=== PATIENT | female | born 1955 | race Caucasian/White ===

== ENCOUNTER 2023-01-28 13:56 | Outpatient (OUT) | payer MEDICARE, SELFPAY ==
--- NOTE | 2023-01-28 14:03 | US_ITS ---
The [address] [address] Patient Name: EDIS MACARIO MRN: [id number] date: 1955 Sex: F Assigned Patient Location: US Current Patient Location: US Accession/Order Number: [id number] Exam Date: 01/28/2023 14:05 Report Date: 01/28/2023 16:57 At the request of: MAINE CHAVEZ Procedure: US thyroid EXAM: US thyroid HISTORY: Thyroid Nodule E04.1 . Follow-up study. COMPARISON: 07/17/2022 TECHNIQUE: Multiple sonographic images of the thyroid gland were obtained, supplemented with Doppler. FINDINGS: The right lobe measures 5.8 x 2.8 x 2.3 cm. Heterogeneous echoes are noted throughout. No focal nodule is identified within. The left lobe measures 5.9 x 2.7 x 2.2 cm. Heterogeneous echoes are noted throughout. In the mid lateral aspect there is a solid hypoechoic nodule present measuring 0.7 x 0.7 x 0.5 cm. No other nodule is identified in the left lobe. The isthmus measures 14 mm. Along the right side of the isthmus is a small cyst measuring 0.4 x 0.5 x 0.3 cm. There is no other evidence of a focal mass or abnormal fluid collection surrounding the gland. US/US thyroid IMPRESSION: The thyroid gland is diffusely enlarged. A small cyst is seen in the isthmus which is not significant. A small nodule in the left lobe is unchanged, and considered TI RADS 4. The overall appearance of the thyroid gland has not changed significantly. Biopsy is not recommended. Follow-up study as clinically indicated. Electronically authenticated by: KATIE GRAY Date: 01/28/2023 16:57
== END 2023-01-28 13:57 | disposition home or self-care (01) ==
LOC: US 13:56
PROVIDERS: PCP Internal Medicine; Visit Provider Otolaryngology
DX: E04.1 Nontoxic single thyroid nodule (principal)
CPT/HCPCS: 76536

== ENCOUNTER 2023-02-10 09:56 | Outpatient (OUT) | payer MEDICARE, SELFPAY ==
--- NOTE | 2023-02-10 09:59 | XR_ITS ---
[address] [address] Patient Name: EDIS MACARIO MRN: [id number] date: 1955 Sex: F Assigned Patient Location: [facility] Current Patient Location: [facility] Accession/Order Number: [id number] Exam Date: 02/10/2023 10:12 Report Date: 02/10/2023 11:18 At the request of: SONIA ZELAYA Procedure: XR DEXA axial skeleton EXAMINATION: XR DEXA axial skeleton HISTORY: Other Specified Disorder Of Bone Density M85.851 COMPARISON: DEXA bone densitometry 12/31/2020 TECHNIQUE: Dual-energy X-ray absorptiometry (DXA) was performed. FINDINGS: SPINE ANALYSIS: Average bone mineral density is 1.165 g/cm2. T-score (standard deviation relative to young adult mean): -0.1 . +9.7% change since prior study. HIP ANALYSIS: Lowest bone mineral density is within the right femoral neck, 0.815 g/cm2. T-score (standard deviation relative to young adult mean): -1.6 . +1.0% change since prior study. XR/XR DEXA axial skeleton IMPRESSION: [employer] Classification: Osteopenia - Moderate Fracture Risk Electronically authenticated by: LUCILA GUAJARDO Date: 02/10/2023 11:18
== END 2023-02-10 09:57 | disposition home or self-care (01) ==
LOC: RAD 09:56
PROVIDERS: PCP Internal Medicine; Visit Provider Internal Medicine
DX: M85.851 Other specified disorders of bone density and structure, right thigh (principal); M85.80 Other specified disorders of bone density and structure, unspecified site
CPT/HCPCS: 77080

== ENCOUNTER 2024-01-31 12:52 | Outpatient (OUT) | payer MEDICARE, SELFPAY ==
--- NOTE | 2024-01-31 12:57 | US_ITS ---
[address] [address] Patient Name: EDIS MACARIO MRN: [id number] date: 1955 Sex: F Assigned Patient Location: US Current Patient Location: Accession/Order Number: [id number] Exam Date: 01/31/2024 13:00 Report Date: 02/02/2024 04:09 At the request of: MAINE CHAVEZ Procedure: US thyroid EXAMINATION: US thyroid HISTORY: Thyroid Nodule COMPARISON: Ultrasound thyroid 01/28/2023 FINDINGS: RIGHT LOBE: Enlarged, heterogeneous, hypervascular lobe. Incidental 5 mm colloid cyst. Lobe size: 6.2 x 2.7 x 2.0 cm LEFT LOBE: Enlarged, heterogeneous, and hypervascular lobe. Slight increase in size of a 10 x 7 x 6 mm TR 4 nodule within mid body. Lobe size: 5.7 x 2.6 x 1.9 cm ISTHMUS: Thickened and heterogeneous. Thickness: 13 mm US/US thyroid IMPRESSION: 1. Enlarged, hypervascular, markedly heterogeneous thyroid gland; nonspecific. 2. Slight increase in size of a now a 10 mm TR 4 nodule within the left lobe. Follow-up ultrasound evaluation in one year is recommended. TR4 (moderately suspicious): If > 1.0 cm, follow-up ultrasound in 1, 2, 3, and 5 years. If > 1.5 cm, fine needle aspiration (FNA). Electronically authenticated by: LUCILA GUAJARDO Date: 02/02/2024 04:09
--- OUTSIDE RECORDS SUMMARY | 2024-01-31 13:14 | XMS_ITS | CCD ---
Author Organization [facility] Care Team Providers Care Manager Of Application Development Name Role Phone Meron Patel Unavailable DO Federico Robins Primary Care Provider DO Federico Robins Attending Provider Federico Robins Unavailable REQUEST, DR NONE LISTED Attending Unavaila ble REQUEST, NONE LISTED Consulting Unavaila ble BALL, DR SCOTT Primary Care Unavailable REQUEST, NONE LISTED Admitting Unavaila ble TIMMIS, MAINE Consulting Unavailable BALL, DR SCOTT Primary Care Unavailable TIMMIS, MAINE Admitting Unavailable TIMMIS, MAINE Attending Unavailable BALL, DR SCOTT Primary Care Unavailable TIMMIS, MAINE Admitting Unavailable TIMMIS, MAINE Attending Unavailable TIMMIS, MAINE Consulting Unavailable NEFCY, PETER Consulting Unavailable Self, Referral Attending Provider Unavailable DO Federico Robins Primary Care Provider Federico Robins Primary Care Unavailable Self, Referral Attending Unavailable Self, Referral Admitting Unavailable TIMMIS, MAINE H Attending Unavailable FEDERICO ROBINS Referring Unavailable KVNG HANNON Attending Unavailable Federico Robins DO Primary Care Provider DOMINGA MATHIS Referring Unavailable FEDERICO ROBINS Primary Care Unavailable DOMINGA MATHIS Referring Unavailable FEDERICO ROBINS Primary Care Unavailable MAGUI GARCIA Admitting Unavailable MAGUI GARCIA Attending Unavailable FEDERICO ROBINS Primary Care Unavailable MAGUI GARCIA Referring Unavailable FEDERICO ROBINS Primary Care Unavailable Allergies Allergy Classification Reported Allergen(s) Allergy Type Date of Onset Reaction(s) Facility (2 sources) patient allergy list reviewed by nurse or physicia Propensity to adverse reactions 5 Comment:Done CodeEval Other Medications Current Medications Medication Drug Class(es) Dates Sig (Normalized) Sig (Original) acetaminophen 325 mg / oxyCODONE hydrochloride 5 mg oral tablet (2 sources) Opioid Agonist Start: 12-22-2023 End: 12-27-2023 oxyCODONE-acetami nophen (PERCOCET) 5-325 MG per tablet Indications: Post-op pain Take 1 tablet by mouth every 6 hours as needed for Pain for up to 5 days. Intended supply: 5 days. Take lowest dose possible to manage pain Max Daily Amount: 4 tablets 20 tablet 12/22/2023 12/27/2023 Active [id number] 200 actuat albuterol 0.09 mg/actuat metered dose inhaler (10 sources) beta2-Adrenergic Agonist Start: 07-27-2021 take 2 puff(s) by inhalation four times daily as needed Albuterol Sulfate HFA 108 (90 Base) MCG/ACT 2 puffs Inhalation qid prn July, Active Start: 07-27-2021 take 2 puff(s) by in halation four times daily as needed Albuterol Sulfate HFA 108 (90 Base) MCG/ACT 2 puffs Inhalation qid prn July, Active ascorbic acid 1000 mg oral tablet (2 sources) Vitamin C take 0.5 tablet by mouth once daily Ascorbic Acid (VITAMIN C) 1000 MG tablet Take 0.5 tablets by mouth daily Active aspirin 81 mg delayed release oral tablet (2 sources) Platelet Aggregation Inhibitor, Nonsteroidal Anti-inflammatory Drug take 1 tablet by mouth once daily aspirin 81 MG EC tablet Take 1 tablet by mouth daily Active Calcium (2 sources) Phosphate Binder, Calcium take 1 tablet by mouth once daily Calcium 200 MG TABS Take 1 tablet by mouth daily 600 mg daily Active calcium chloride 0.0014 meq/ml / potassium chloride 0.004 meq/ml / sodium chloride 0.103 meq/ml / sodium lactate 0.028 meq/ml injectable solution (1 source) Start: 4 IntraVENous, at 125 mL/hr, CONTINUOUS, Starting on Wed12/22/23 at 0900, Pre-op (day of surgery) cephalexin 500 mg oral capsule (3 sources) Cephalosporin Antibacterial Start: 4 take 1 capsule by mouth four times daily cephALEXin (KEFLEX) 500 MG capsule Indications: Hematoma Take 1 capsule by mouth 4 times daily 40 capsule 12/29/2023 Active Start: 12-22-2023 End: 12-29-2023 cephALEXin (KEFLEX) 500 MG c apsule Take 1 capsule by mouth 2 times daily for 7 days Please take FIVE days of antibiotic if discharged home WITHOUT merino catheter. Please take SEVEN days of antibiotic if discharged home WITH merino catheter. 14 capsule 12/22/2023 12/29/2023 Active cholecalciferol 0.125 mg oral tablet (2 sources) Vitamin D take 1 tablet by mouth once daily vitamin D3 (CHOLECALCIFEROL) 125 MCG (5000 UT) TABS tablet Take 1 tablet by mouth daily Active clonazePAM 0.5 mg oral tablet (2 sources) Benzodiazepine clonazePAM (KLON OPIN) 0.5 MG tablet every 24 hours. Active diazePAM 5 mg oral tablet (9 sources) Benzodiazepine Start: 2022 take 1 tablet by mouth at bedtime diazePAM 5 mg TAKE 1 TABLET BY MOUTH AT BEDTIME Sep, Active 1 ml diphenhydrAMINE hydrochloride 50 mg/ml cartridge (1 source) Histamine-1 Receptor Antagonist Start: 2023 End: 2023 12.5 mg, IntraVENous, ONCE PRN, 1 dose, Starting on Wed12/22/23 at 1314, Until Xi 12/23/23 at 1314, Itching, PACU only docusate sodium 50 mg / sennosides, [facility] 8.6 mg oral tablet (3 sources) Start: 2023 End: 2023 take 2 tablets by mouth at bedtime sennosides-docusate sodium (SENOKOT-S) 8.6-50 MG tablet Take 2 tablets by mouth at bedtime 60 tablet 1 12/22/2023 Active etodolac 500 mg oral tablet (6 sources) Nonsteroidal Anti-inflammatory Drug Start: 2022 take 1 tablet by mouth twice daily at mealtime Etodolac 500 MG 1 tablet with food Orally Twice a day w/ food for 15 days Sep, Active fluticasone propionate 0.05 mg/actuat metered dose nasal spray (10 sources) Corticosteroid Start: 2021 take 2 spray(s) nasal route once daily Fluticasone Propionate 50 MCG/ACT 2 sprays Nasally Once a day for 14 day(s) July, Active ibuprofen 400 mg oral tablet (3 sources) Nonsteroidal Anti-inflammatory Drug Start: 2023 End: 2023 take 1 tablet by mouth three times daily as needed for pain ibuprofen (IBU) 400 MG tablet Take 1 tablet by mouth 3 times daily as needed for Pain 30 tablet 1 12/22/2023 Active labetalol (NORMODYNE;TRANDATE) injection 10 mg (1 source) Start: 2023 labetalol (NORMODYNE;TRANDATE) injection 10 mg Lactobacillus acidophilus (2 sources) take 1 tablet by mouth three times daily at mealtime Lactobacillus (PROBIOTIC ACIDOPHILUS PO) Take 1 tablet by mouth 3 times daily (with meals) Active levothyroxine sodium 0.05 mg oral tablet (8 sources) l-Thyroxine Start: 2022 levothyroxine (SYNTHROID) 50 MCG tablet Daily 06/16/2022 Active take 1 tablet by tejal th once daily in the morning Levothyroxine Sodium 50 MCG 1 tablet in the morning on an empty stomach Orally Once a day Active 10 ml lidocaine hydrochloride 10 mg/ml injection (1 source) Antiarrhythmic, Amide Local Anesthetic Start: 12-22-2023 End: 12-23-2023 take 1 dose intravenously once daily 1 mL, IntraDERmal, ONCE PRN, 1 dose, Starting on Wed12/22/23 at 0841, Until Xi 12/23/23 at 0841, IV start, Pre-op (day of surgery) Magnesium (2 sources) take 1 tablet by mouth once daily magnesium (MAGNESIUM-OXIDE) 250 MG TABS tablet Take 1 tablet by mouth daily Active 2 ml metoclopramide 5 mg/ml prefilled syringe (1 source) Dopamine-2 Receptor Antagonist Start: 12-22-2023 End: 12-23-2023 10 mg, IntraVENous, ONCE PRN, 1 dose, Starting on Wed12/22/23 at 1314, Until Xi 12/23/23 at 1314, Nausea, Secondary antiemetic therapy., PACU only 2 ml midazolam 1 mg/ml injection (2 sources) Benzodiazepine Start: 12-22-2023 End: 12-23-2023 2 mg, IntraVENous, ONCE PRN, 1 dose, Starting on Wed12/22/23 at 1314, Until Xi 12/23/23 at 1314, Anxiety, PACU only Multiple Vitamins-Minerals (HAIR SKIN & NAILS PO) (2 sources) Multiple Vitamins-Minerals (HAIR SKIN & NAILS PO) Take by mouth Daily Active naloxone 0.4 mg in 10 mL sodium chloride syringe (1 source) Start: 12-22-2023 IntraVENous, PRN, Opioid Reversal, Starting on Wed12/22/23 at 1314, PRN if respiratory rate is less than 6/min and patient is difficult to arouse then notify physician STAT. Mix 9 mL of sodium chloride 0.9% with 0.4 mg (1 mL) of naloxone (NARCAN) in 10 mL syringe. (Note: dilution is 0.04 mg/mL) Give 0.08 mg (2 mL of special dilution), slow IV push, repeat up to 0.4 mg (10 mL) or until patient is responsive to physical stimulation and respiratory rate is equal to or greater than 6 breaths/min. Continue to observe, if no response within 3 minutes of administration of 0.4 mg (10 mL) total, repeat dose (0.4 mg as administered previously). Concentration 0.04 mg/mL, PACU only ondansetron 4 mg oral tablet (3 sources) Serotonin-3 Receptor Antagonist Start: 12-22-2023 End: 12-27-2023 take 1 tablet by mouth every eight hours as needed for nausea ondansetron (ZOFRAN) 4 MG tablet Take 1 tablet by mouth every 8 hours as needed for Nausea or Vomiting 15 tablet 12/22/2023 12/27/2023 Active Start: 12-22-2023 End: 12-23-2023 4 mg, IntraVENous, ONCE PRN, 1 dose, Starting on Wed12/22/23 at 1314, Until Xi 12/23/23 at 1314, Nausea, Initial antiemetic therapy., PACU only oxyCODONE (1 source) Opioid Agonist Start: 12-22-2023 End: 12-22-2023 oxyCODONE (ROXICODONE) immediate release tablet 5 mg rOPINIRole 1 mg oral tablet (18 sources) Nonergot Dopamine Agonist Start: 06-23-2022 rOPINIRole (REQUIP) 1 MG tablet .COMPLEX 06/23/2022 Active rOPINIRole HCl N ot-Taking rOPINIRole HCl A ctive 72 hr scopolamine 0.0139 mg/hr transdermal system (1 source) Anticholinergic Start: 12-22-2023 1 patch, Trans DERmal, Administer over 72 Hours, ONCE, On Wed12/22/23 at 0900, For 1 dose, delivers 1 mg over 3 days. Apply patch to hairless area behind the ear. 5 ml sodium chloride 9 mg/ml injection (6 sources) Start: 12-22-2023 5-40 mL, Intra VENous, EVERY 12 HOURS SCHEDULED (2 times per day), First dose on Wed12/22/23 at 2100, Until Discontinued, For Line Patency: Peripheral IV = 5 mL; Midline or Central Line = 10 mL/lumen. If following IV push medication, administer flush at same rate as the IV push. Flush volume is determined by type of infusion therapy being given. For non-viscous solutions use: Peripheral IV = 5 mL Midline or Central Line = 10 mL/lumen For viscous solutions (i.e. blood components, parenteral nutrition, contrast media, or after obtaining blood sample) use: Peripheral IV = 10 mL Midline or Central Line = 20 mL/lumen, PACU only Start: 12-22-2023 take 1 mL intravenou sly every hour as needed IntraVENous, at 100 mL/hr, PRN, If patient receiving piggyback infusions without ordered maintenance IV fluids or with frequent/long duration piggyback infusions, Starting on Wed12/22/23 at 1314, Administer at the same rate as the piggyback being infused., PACU only Start: 12-22-2023 take 20 mL intraveno usly every hour IntraVENous, at 5-250 mL/hr, PRN, if patient receiving piggyback infusions and maintenance fluids are not ordered OR KVO fluids to protect IV site / prevent frequent line interruptions/ long duration, Starting on Wed12/22/23 at 0841, For piggyback infusion, administer at same rate as piggyback for a total of 25 mL. Enter 25 mL into dose field and piggyback rate into rate field of order. If piggyback is infusing at a rate less than 100 mL/hr, enter 25 mL into dose field and 100 mL/hr into rate field of order. For KVO fluids, enter rate of 20 mL/hr or less into rate field of order., Pre-op (day of surgery) Start: 12-22-2023 5-40 mL, Intra VENous, EVERY 12 HOURS SCHEDULED (2 times per day), First dose on Wed12/22/23 at 0900, Until Discontinued, For Line Patency: Peripheral IV = 5 mL; Midline or Central Line = 10 mL/lumen. If following IV push medication, administer flush at same rate as the IV push. Flush volume is determined by type of infusion therapy being given. For non-viscous solutions use: Peripheral IV = 5 mL Midline or Central Line = 10 mL/lumen For viscous solutions (i.e. blood components, parenteral nutrition, contrast media, or after obtaining blood sample) use: Peripheral IV = 10 mL Midline or Central Line = 20 mL/lumen, Pre-op (day of surgery) Start: 12-22-2023 5-40 mL, Intra VENous, PRN, Starting on Wed12/22/23 at 1314, Until Discontinued, Line Care, After every IV line use, For Line Patency: Peripheral IV = 5 mL; Midline or Central Line = 10 mL/lumen. If following IV push medication, administer flush at same rate as the IV push. Flush volume is determined by type of infusion therapy being given. For non-viscous solutions use: Peripheral IV = 5 mL Midline or Central Line = 10 mL/lumen For viscous solutions (i.e. blood components, parenteral nutrition, contrast media, or after obtaining blood sample) use: Peripheral IV = 10 mL Midline or Central Line = 20 mL/lumen, PACU only tamsulosin hydrochloride 0.4 mg oral capsule (1 source) alpha-Adrenergic Carolyne Start: 12-22-2023 take 1 capsule by mouth once daily tamsulosin (FLOMAX) 0.4 MG capsule Take 1 capsule by mouth daily 7 capsule 5 12/22/2023 Active tiZANidine 4 mg oral tablet (6 sources) Central alpha-2 Adrenergic Agonist Start: 09-24-2022 tiZANidine HCl 4 MG 1/2 - 1 Orally Three times a day as needed for pain for 10 days Sep, Active 24 hr venlafaxine 150 mg extended release oral capsule (20 sources) Serotonin and Norepinephrine Reuptake Inhibitor Start: 06-19-2023 venlafaxine (EFFEXOR XR) 150 MG extended release capsule Daily 06/19/2023 Active Start: 10-12-2022 take 1 capsule by [facility] every twenty-four hours Venlafaxine HCl ER 150 MG 1 capsule with food Orally Once a day Sep, Active take 1 tablet by tejal th once daily in the morning Venlafaxine HCl 75 mg TAKE 1 TABLET BY MOUTH EVERY MORNING for 30 Active Effexor Not-Taki ng Effexor Active vitamin b12 0.1 mg oral tablet (2 sources) Vitamin B12 take 1 tablet by mouth once daily cyanocobalamin 100 MCG tablet Take 1 tablet by mouth daily Active Completed/Discontinued Medications Medication Drug Class(es) Dates Sig (Normalized) Sig (Original) 2 ml fentaNYL 0.05 mg/ml injection (1 source) Opioid Agonist Start: 12-22-2023 End: 12-22-2023 take 1 dose by mouth every hour 100 mcg, IntraVENous, ONCE, 1 dose, On Wed12/22/23 at 0930, If oral and IV narcotics ordered, use oral first and only use IV if oral is ineffective or cannot take oral. Do Not give oral and IV within 1 hour of each other unless specifically ordered. gabapentin 300 mg oral capsule (1 source) Anti-epileptic Agent Start: 12-22-2023 End: 12-22-2023 take 1 dose by mouth once 300 mg, Oral, ONCE, 1 dose, On Wed12/22/23 at 0900 1 ml HYDROmorphone hydrochloride 1 mg/ml cartridge (1 source) Opioid Agonist Start: 12-22-2023 0.5 mg, IntraVENous, EVERY 5 MIN PRN, 4 doses, Starting on Wed12/22/23 at 1314, Until Discontinued, Pain Severe (7-10), Phase I - Initial therapy for severe pain., PACU only iopamidol (ISOVUE-370) 76 % injection 75 mL (1 source) Start: 12-29-2023 End: 12-29-2023 take 1 dose intravenously once 75 mL, IntraVENous, IMG ONCE PRN, 1 dose, Starting on Wed12/29/23 at 1530, Until Wed12/29/23 at 1537, Other 1 ml morphine sulfate 2 mg/ml cartridge (1 source) Opioid Agonist Start: 12-22-2023 1 mg, IntraVENous, EVERY 5 MIN PRN, 4 doses, Starting on Wed12/22/23 at 1314, Until Discontinued, Pain Moderate (4-6), Phase I - Initial therapy for moderate pain., PACU only phenazopyridine hydrochloride 100 mg oral tablet (1 source) Start: 12-22-2023 End: 12-22-2023 take 1 dose by mouth once at mealtime 100 mg, Oral, ONCE, 1 dose, On Wed12/22/23 at 0900, Take with food. May cause discoloration of urine. predniSONE 20 mg oral tablet (10 sources) Start: 07-27-2021 take 1 tablet by mouth every twelve hours predniSONE 20 MG 1 tablet Orally bid for 5 day(s) July, Not-Taking {20 (nirmatrelvir 150 MG Oral Tablet) / 10 (ritonavir 100 MG Oral Tablet) } Pack [Paxlovid 5-Day] (9 sources) Start: 05-20-2022 take 3 tablets by mouth every twelve hours Paxlovid (300/100) 20 x 150 MG & 10 x 100MG 3 tablets Orally Twice a day for 5 day(s) May, Not-Taking Start: 05-20-2022 take 3 tablets by mo uth every twelve hours Paxlovid (300/100) 20 x 150 MG & 10 x 100MG 3 tablets Orally Twice a day for 5 day(s) May, Active Problems Active Problems Problem Classification Problem Date Documented Da te Episodic/Chronic Anxiety disorders (8 sources) Generalized anxiety disorder; Translations: [Generalized anxiety disorder] Chronic Conditions associated with dizziness or vertigo (2 sources) Benign paroxysmal positional vertigo; Translations: [Benign paroxysmal vertigo, left ear] Episodic Esophageal disorders (10 sources) Eosinophilic esophagitis; Translations: [Eosinophilic esophagitis] Chronic Esophageal disorders (6 sources) Esophagitis; Translations: [Esophagitis] Episodic Esophageal disorders (4 sources) Esophageal disorders; Translations: [Gastroesophageal reflux disease with esophagitis without hemorrhage] Immunizations and screening for infectious disease (2 sources) Vaccination given; Translations: [Encounter for immunization] Episodic Miscellaneous mental health disorders (6 sources) Primary insomnia; Translations: [Primary insomnia] Chronic Mood disorders (18 sources) Recurrent major depressive episodes, mild ; Translations: [Major depressive disorder, recurrent, mild] Chronic Other bone disease and musculoskeletal deformities (1 source) Other specified disorders of bone density and structure, right thigh Episodic Other ear and sense organ disorders (8 sources) Sensorineural hearing loss, unilateral, right ear, with unrestricted hearing on the contralateral side; Translations: [Sensorineural hearing loss of right ear with normal hearing on left side (disorder)] Chronic Other ear and sense organ disorders (2 sources) Hearing loss; Translations: [Unspecified hearing loss, unspecified ear] Chronic Other ear and sense organ disorders (6 sources) Tinnitus; Translations: [Tinnitus, right ear] Episodic Other gastrointestinal disorders (2 sources) Chronic idiopathic constipation; Translations: [Chronic idiopathic constipation] Onset: 12-29-2023 Chronic Other hereditary and degenerative nervous system conditions (8 sources) Restless legs; Translations: [Restless legs syndrome] Chronic Other injuries and conditions due to external causes (2 sources) History of fall; Translations: [History of falling] Episodic Other injuries and conditions due to external causes (3 sources) Other injury of unspecified body region, initial encounter; Translations: [Other injury of unspecified body region, initial encounter] Onset: 12-29-2023 Episodic Other injuries and conditions due to external causes (1 source) Hematoma; Translations: [Other injury of unspecified body region, initial encounter] 12-29-2023 Episodic Other lower respiratory disease (6 sources) Nocturnal cough; Translations: [Nocturnal cough] Episodic Other lower respiratory disease (2 sources) Cough; Translations: [Cough] Episodic Other nervous system disorders (2 sources) Lesion of ulnar nerve; Translations: [Lesion of ulnar nerve] Onset: 10-01-2015 Chronic Other nervous system disorders (1 source) Postoperative pain ; Translations: [Other acute postprocedural pain] 12-22-2023 Episodic Other nervous system disorders (1 source) Other acute postprocedural pain; Translations: [Other acute postprocedural pain] Onset: 12-22-2023 Episodic Other nutritional; endocrine; and metabolic disorders (2 sources) Overweight; Translations: [Overweight] Episodic Other upper respiratory infections (3 sources) Acute sinusitis, unspecified; Translations: [Acute maxillary sinusitis] Onset: 07-27-2021 Resolved: 07-27-2021 Episodic Residual codes; unclassified (6 sources) Asymptomatic menopausal state; Translations: [Menopause] Episodic Residual codes; unclassified (2 sources) Postmenopausal state; Translations: [Asymptomatic menopausal state] Episodic Residual codes; unclassified (2 sources) Other specified postprocedural states; Translations: [Other specified postprocedural states] Onset: 12-29-2023 Episodic Spondylosis; intervertebral disc disorders; other back problems (2 sources) Cervical spondylosis without myelopathy; Translations: [Spondylosis without myelopathy or radiculopathy, cervical region] Onset: 05-14-2016 Chronic Thyroid disorders (20 sources) Thyroid nodule; Translations: [Nontoxic single thyroid nodule] Onset: 07-17-2022 Chronic Unclassified (1 source) Encounter for screening mammogram for malignant neoplasm of breast; Translations: [Encounter for screening mammogram for malignant neoplasm of breast] Onset: 02-15-2023 Viral infection (3 sources) COVID-19; Translations: [Disease caused by 2019-nCoV] Past or Other Problems Problem Classification Problem Date Documented Da te Episodic/Chronic Abdominal pain (4 sources) Right upper quadrant pain; Translations: [Right upper quadrant pain] Onset: 04-05-2015 Episodic Administrative/social admission (2 sources) Stress; Translations: [Other psychological or physical stress, not elsewhere classified] Onset: 10-01-2015 Episodic Chronic obstructive pulmonary disease and bronchiectasis (1 source) Bronchitis, not specified as acute or chronic Onset: 07-27-2021 Resolved: 07-27-2021 Episodic Headache; including migraine (2 sources) Headache; Translations: [Headache] Onset: 08-22-2015 Episodic Lymphadenitis (2 sources) Lymphadenopathy; Translations: [Enlargement of lymph nodes] Onset: 08-22-2015 Episodic Mycoses (2 sources) Tinea corporis; Translations: [Tinea corporis] Onset: 11-11-2012 Episodic Nausea and vomiting (2 sources) Nausea; Translations: [Nausea] Onset: 04-05-2015 Episodic Nonspecific chest pain (6 sources) Chest pain; Translations: [Other chest pain] Onset: 10-01-2015 Episodic Other connective tissue disease (2 sources) Acquired trigger finger; Translations: [Trigger thumb, left thumb] Onset: 04-25-2015 Episodic Other connective tissue disease (2 sources) Cramp in limb; Translations: [Cramp of limb] Onset: 11-11-2012 Episodic Other gastrointestinal disorders (2 sources) Flatulence, eructation and gas pain; Translations: [Abdominal distension (gaseous)] Onset: 04-05-2015 Episodic Other lower respiratory disease (2 sources) Dyspnea; Translations: [Dyspnea, unspecified] Onset: 10-01-2015 Episodic Other nervous system disorders (2 sources) Paresthesia; Translations: [Paresthesia of skin] Onset: 05-14-2016 Episodic Other non-traumatic joint disorders (2 sources) Pain in wrist; Translations: [Pain in unspecified wrist] Onset: 02-05-2014 Episodic Other non-traumatic joint disorders (2 sources) Shoulder joint pain; Translations: [Pain in joint, shoulder region] Onset: 04-25-2015 Episodic Other skin disorders (2 sources) Disorder of skin and/or subcutaneous tissue; Translations: [Disorder of the skin and subcutaneous tissue, unspecified] Onset: 08-09-2014 Episodic Residual codes; unclassified (2 sources) Requires influenza virus vaccination; Translations: [Need for prophylactic vaccination and inoculation, Influenza] Onset: 12-02-2016 Episodic Residual codes; unclassified (2 sources) C/O - a back symptom; Translations: [Other symptoms referable to back] Onset: 12-31-2016 Episodic Spondylosis; intervertebral disc disorders; other back problems (4 sources) Neck pain; Translations: [Cervicalgia] Onset: 04-25-2015 Episodic Unclassified (1 source) Acute bilateral low back pain without sciatica M54.50 Results Test Name Value Interpretation Reference Range Facility BUN (Urea N)on 12-29-2023 Urea nitrogen [Mass/Vol] 18 mg/dL Normal 8-23 [facility] Comment on above: Performed By: #### B UN, CREG #### [facility] [address] [place] [address] Meat Blender: Wilder Villa MD CT PELVIS W CONTRASTon 12-28 CT PELVIS W CONTRAST EXAMINATION: CT OF THE PELVIS WITH CONTRAST 12/29/2023 3:30 pm TECHNIQUE: CT of the pelvis was performed with the administration of intravenous contrast. Multiplanar reformatted images are provided for review. Automated exposure control, iterative reconstruction, and/or weight based adjustment of the mA/kV was utilized to reduce the radiation dose to as low as reasonably achievable. COMPARISON: None. HISTORY Postoperative hematoma. FINDINGS: Bladder is unremarkable. Hysterectomy. Subcutaneous fat stranding along the anterior pelvis with mild linear hematoma. Mild-moderate simple pelvic fluid. No significant lymphadenopathy. No acute abnormality of the visualized gastrointestinal tract. No acute osseous abnormality. IMPRESSION: Mild-moderate simple fluid in the pelvis. Subcutaneous inflammation and mild hematoma are compatible with postsurgical changes. Interpreted by: Rahel Thompson MD Signed by: Rahel Thompson MD 12/29/23 Final result Normal [facility] CT Pelvis W contrast Carlos Mild-moderate simple fluid in the pelvis. Subcutaneous inflammation and mild hematoma are compatible with postsurgical changes. [facility] EXAMINATION: CT OF THE PELVIS WITH CONTRAST 12/29/2023 3:30 pm TECHNIQUE: CT of the pelvis was performed with the administration of intravenous contrast. Multiplanar reformatted images are provided for review. Automated exposure control, iterative reconstruction, and/or weight based adjustment of the mA/kV was utilized to reduce the radiation dose to as low as reasonably achievable. COMPARISON: None. HISTORY Postoperative hematoma. FINDINGS: Bladder is unremarkable. Hysterectomy. Subcutaneous fat stranding along the anterior pelvis with mild linear hematoma. Mild-moderate simple pelvic fluid. No significant lymphadenopathy. No acute abnormality of the visualized gastrointestinal tract. No acute osseous abnormality. [facility] Rahel Thompson MD - 12/29/2023 EXAMINATION: CT OF THE PELVIS WITH CONTRAST 12/29/2023 3:30 pm TECHNIQUE: CT of the pelvis was performed with the administration of intravenous contrast. Multiplanar reformatted images are provided for review. Automated exposure control, iterative reconstruction, and/or weight based adjustment of the mA/kV was utilized to reduce the radiation dose to as low as reasonably achievable. COMPARISON: None. HISTORY Postoperative hematoma. FINDINGS: Bladder is unremarkable. Hysterectomy. Subcutaneous fat stranding along the anterior pelvis with mild linear hematoma. Mild-moderate simple pelvic fluid. No significant lymphadenopathy. No acute abnormality of the visualized gastrointestinal tract. No acute osseous abnormality. IMPRESSION: Mild-moderate simple fluid in the pelvis. Subcutaneous inflammation and mild hematoma are compatible with postsurgical changes. [facility] Radiology Study observation (narrative) [facility] CT Pelvis W contrast IVOrder ed By: Rahel Thompson on 12-29-2023 [facility] Work Phone: Creatinine w/GFRon 4 Creatinine [Mass/Vol] 1.3 mg/dL High 0.50-0.90 [facility] Comment on above: Performed By: #### B FEDERICA, CREG #### [facility] [address] [place] [address] Meat Blender: Wilder Villa MD GFR/1.73 sq M.predicted among non-blacks MDRD (S/P/Bld) [Vol rate/Area] 44 mL/min/{1.73_m2} Low >60 [facility] Comment on above: Result Comment: These results are not intended for use in patients <18 years of age. eGFR results are calculated without a race factor using the 2020 CKD-EPI equation. Careful clinical correlation is recommended, particularly when comparing to results calculated using previous equations. The CKD-EPI equation is less accurate in patients with extremes of muscle mass, extra-renal metabolism of creatine, excessive creatine ingestion, or following therapy that affects renal tubular secretion. Performed By: #### B FEDERICA, CREG #### [facility] [address] [place] [address] Meat Blender: Wilder Villa MD Hemoglobin and Hematocriton 12-22-2023 Hematocrit (Bld) [Volume fraction] 40.0 % 36 - 46 % [facility] Hemoglobin (Bld) [Mass/Vol] 13.1 g/dL 12.0 - 16.0 g/dL [facility] Hgb/Hcton 12-22-2023 Hematocrit (Bld) [Volume fraction] 40.0 % Normal 36-46 [facility] Comment on above: Performed By: #### H H #### [facility] [id number] [place] [id number] Meat Blender: Luis Carlos Bright MD Hemoglobin (Bld) [Mass/Vol] 13.1 g/dL Normal 12.0-16.[address] [facility] Comment on above: Performed By: #### H H #### [facility] [address] [place] [address] Meat Blender: Luis Carlos Bright MD MM screening mammo BI w/CADo n 02-16-2023 MM screening mammo BI w/CAD [facility] [place] [address] [place] [id number] Mammography Report Signed Patient: Anna Jolley MR#: [id number] : 1955 Acct:[id number] Age/Sex: 67 / F ADM Date: 02/15/23 Loc: [place] Room: Type: [facility] CLI Attending Dr: Referral Self Copies to: Federico Robins DO SELF,REFERRAL Ordering Provider: SELF,REFERRAL Date of Service: 02/15/23 MM/MM screening mammo BI w/CAD: SCREENING CLINICAL DATA: Screening for malignancy. BILATERAL SCREENING MAMMOGRAMS - FULL FIELD DIGITAL WITH TOMOSYNTHESIS AND CAD Tomosynthesis craniocaudal and mediolateral oblique views of both breasts were obtained using low- dose digital technique. Comparison is made to prior studies from 01/30/2022, 01/10/2021, 11/17/2019, and 03/04/2020. This examination was reviewed with the aid of CAD. The breast parenchyma is heterogeneously dense. There is a biopsy clip on the left which is unchanged. Benign-appearing calcifications redemonstrated on the left. Benign-appearing lymph nodes noted along the chest wall. There are no dominant masses, typically malignant calcifications or architectural distortion. There has been no significant interval change. MM/MM screening mammo BI w/CAD IMPRESSION: NO MAMMOGRAPHIC EVIDENCE OF MALIGNANCY. ROUTINE FOLLOW-UP IS RECOMMENDED IN ONE YEAR. RESULT CODE: 2 Benign Findings(s) DENSITY CODE: 3 (approximately 51-75% glandular) FOLLOW UP: 1YR The false-negative rate of mammography is approximately 10-percent. Management of a palpable abnormality must be based on clinical grounds. Patient was entered into a reminder system with a target due date for the next mammogram. Impression dictated by: Yunior Yee M.D.02/16/2023 1:51 PM Dictation Location: [facility] Transcribed By: SUMIT 02/16/23 1351 Dictated By: Yunior Yee II, MD 02/16/23 1342 Signed By: 02/16/23 1351 Normal [facility] US THYROIDon 07-18-2022 US THYROID STUDY: US THYROID, [id number] HISTORY: Non-toxic uninodular goiter TECHNIQUE: Multiple 2 dimensional grayscale and color doppler images through the thyroid. COMPARISONS: Thyroid ultrasound 01/28/2022 and 12/13/2019. FINDINGS: The thyroid is heterogeneous in echotexture and demonstrates diffusely increased color Doppler flow, similar. The right lobe measures 5.8 x 2.8 x 2.2 cm for a volume of 16.6 cc. The left lobe measures 5.6 x 2.3 x 1.9 cm for a volume of 11.9 cc. The isthmus measures 1.2 cm. Nodule 1 Size: 0.7 x 0.6 x 0.4 cm, previously 0.5 x 0.5 x 0.4 Location: Left mid thyroid Composition: Solid or almost completely solid-2 Echogenicity: Hypoechoic-2 Shape: Wider than tall-0 Margin: Smooth-0 Echogenic foci: None or large comet tail artifacts-0 TI-RADS: 4 No other significant nodules. IMPRESSION: 1. Stable thyromegaly. 2. Single TI-RADS 4 nodule in the left thyroid measuring up to 7 mm, not significant change compared with 01/28/2022. Given size less than 1 cm, no additional follow-up or evaluation is required based on TI-RADS criteria. Electronically authenticated by: DIANDRA AVALOS Date: 2022-07-18 11:31 Normal [facility] CBC AUTO DIFFon 02-13-2022 BASO # 0.1 103/ul Normal 0.0-0.1 [facility] Comment on above: Performed By: #### D ATCBC #### [facility] [address] [address] [address] Rosie Dodson Basophils/100 WBC (Bld) 0.7 % Normal 0.2-2.0 [facility] Comment on above: Performed By: #### D ATCBC #### [facility] [address] [place], [place] [address] Dr. Rosie Dodson EO # 0.5 103/ul Normal 0.0-0.7 [facility] Comment on above: Performed By: #### D ATCBC #### [facility] [address] [place] [address] Dr. Rosie Dodson Eosinophils/100 WBC (Bld) 7.5 % Critically high 0.9-7.0 [facility] Comment on above: Performed By: #### D ATCBC #### [facility] [address] [place] [address] Dr. Rosie Dodson Erythrocyte distribution width (RBC) [Ratio] 12.4 % Normal 11.0-15.0 [facility] Comment on above: Performed By: #### D ATCBC #### [facility] [address] [place] [address] Dr. Rosie Dodson Hematocrit (Bld) [Volume fraction] 44.4 % Normal 36.0-48.0 [facility] Comment on above: Performed By: #### D ATCBC #### [facility] [address] [place] [address] Dr. Rosie Dodson Hemoglobin (Bld) [Mass/Vol] 14.4 g/dL Normal 12.0-16.0 [facility] Comment on above: Performed By: #### D ATCBC #### [facility] [address] [place] [address] Dr. Rosie Dodson IG # 0.01 10e3/ul Normal 0.00-0.03 [facility] Comment on above: Performed By: #### D ATCBC #### [facility] [address] [place] [address] Dr. Rosie Dodson IG % 0.1 % Normal 0.0-0.5 [facility] Comment on above: Performed By: #### D ATCBC #### [facility] [address] [place] [address] Dr. Rosie Dodson LYMPH # 2.1 103/ul Normal 1.2-3.8 [facility] Comment on above: Performed By: #### D ATCBC #### [facility] [address] [place] [address] Dr. Rosie Dodson Lymphocytes/100 WBC (Bld) 29.4 % Normal 20.5-60.0 [facility] Comment on above: Performed By: #### D ATCBC #### [facility] [address] [address] [address] Rosie Dodson MCH (RBC) [Entitic mass] 29.0 pg Normal 26.7-34.0 [facility] Comment on above: Performed By: #### D ATCBC #### [facility] [address] [place] [address] Dr. Rosie Dodson MCHC (RBC) [Mass/Vol] 32.4 g/dL Normal 29.9-35.2 [facility] Comment on above: Performed By: #### D ATCBC #### [facility] [address] [place] [address] Dr. Rosie Dodson MCV (RBC) [Entitic vol] 89.5 fL Normal 81.0-99.0 [facility] Comment on above: Performed By: #### D ATCBC #### [facility] [address] [place] [address] Dr. Rosie Dodson MONO # 0.7 103/ul Normal 0.3-0.8 [facility] Comment on above: Performed By: #### D ATCBC #### [facility] [address] [place] [address] Dr. Rosie Dodson Monocytes/100 WBC (Bld) 9.8 % Normal 1.7-12.0 [facility] Comment on above: Performed By: #### D ATCBC #### [facility] [address] [place] [address] Dr. Rosie Dodson NEUT # 3.7 103/ul Normal 1.4-6.5 [facility] Comment on above: Performed By: #### D ATCBC #### [facility] [address] [place] [address] Dr. Rosie Dodson Neutrophils/100 WBC (Bld) 52.5 % Normal 43.0-75.0 [facility] Comment on above: Performed By: #### D ATCBC #### [facility] [address] [place] [address] Dr. Rosie Dodson Platelet mean volume (Bld) [Entitic vol] 9.6 fL Normal 9.5-13.5 [facility] Comment on above: Performed By: #### D ATCBC #### [facility] [address] [place] [address] Dr. Rosie Dodson PLT 339 103/ul Normal 150-450 [facility] Comment on above: Performed By: #### D ATCBC #### [facility] [address] [place] [address] Dr. Rosie Dodson RBC 4.96 106/ul Normal 4.20-5.40 [facility] Comment on above: Performed By: #### D ATCBC #### [facility] [address] [place] [address] Dr. Rosie Dodson WBC 7.1 103/ul Normal 4.0-11.0 [facility] Comment on above: Performed By: #### D ATCBC #### [facility] [address] [place] [address] Dr. Rosie Dodson ARLETH - TSHon 02-13-2022 TSH 1.943 uIU/mL Normal 0.358-3.740 [facility] Comment on above: Performed By: #### D ATTSH DATBMP #### [facility] [address] [place] [address] Dr. Rosie Dodson TSH RANGE SEE BELOW Normal [facility] Comment on above: Result Comment: <0.3 4 UIU/ml HYPERTHYROID 0.34-5.60 UIU/ml EUTHYROID >5.60 UIU/ml HYPOTHYROID Performed By: #### D ATTSH, DATBMP #### [facility] [address] [place] [address] Dr. Rosie Dodson ARLETH- BMP WITH LIPIDon 2021 Anion gap [Moles/Vol] 12.9 mmol/L Normal [facility] Comment on above: Performed By: #### D ATTSH, DATBMP #### [facility] [address] [place] [address] Dr. Rosie Dodson Calcium [Mass/Vol] 9.2 mg/dL Normal 8.5-10.1 [facility] Comment on above: Performed By: #### D ATTSH, DATBMP #### [facility] [address] [address] [address] Rosie Dodson Chloride [Moles/Vol] 102 mmol/L Normal 98-107 [facility] Comment on above: Performed By: #### D ATTSH, DATBMP #### [facility] [address] [address] [address] Rosie Dodson Cholesterol [Mass/Vol] 228 mg/dL Critically high <=200 [facility] Comment on above: Performed By: #### D ATTSH, DATBMP #### [facility] [address] [address] [address] Rosie Dodson Cholesterol in HDL [Mass/Vol] 54 mg/dL Normal 40-60 [facility] Comment on above: Performed By: #### D ATTSH, DATBMP #### [facility] [address] [address] [address] Rosie Dodson Cholesterol in LDL [Mass/Vol] 151.0 mg/dL Normal [facility] Comment on above: Performed By: #### D ATTSH, DATBMP #### [facility] [address] [address] [address] Rosie Dodson CO2 [Moles/Vol] 28.3 mmol/L Normal 21.0-32.0 [facility] Comment on above: Performed By: #### D ATTSH, DATBMP #### [facility] [address] [address] [address] Rosie Dodson Creatinine [Mass/Vol] 0.92 mg/dL Normal 0.55-1.02 [facility] Comment on above: Performed By: #### D ATTSH, DATBMP #### [facility] [address] [address] [address] Rosie Dodson EGFR-AF ECUADOREAN >60 Normal >=60 [facility] Comment on above: Performed By: #### D ATTSH, DATBMP #### [facility] [address] [address] [address] Rosie Dodson EGFR-NON AF ECUADOREAN >60 Normal >=60 [facility] Comment on above: Performed By: #### D ATTKRISTAL, DATBMP #### [facility] [address] [address] [address] Rosie Dodson Glucose [Mass/Vol] 100 mg/dL Normal 74-106 [facility] Comment on above: Performed By: #### D ATTKRISTAL, DATBMP #### [facility] [address] [address] [address] Rosie Dodson HDL NORMAL > or = 60 mg/dl - LO W CARDIOVASCULAR RISK <40 mg/dl - HIGH CARDIOVASCULAR RISK Normal [facility] Comment on above: Performed By: #### D ATTKRISTAL, DATBMP #### [facility] [address] [address] [address] Rosie Dodson LDL CALC NORMAL SEE BELOW Normal [facility] Comment on above: Result Comment: <100 mg/dl OPTIMAL 100 - 129 mg/dl NEAR OR ABOVE OPTIMAL 130 - 159 mg/dl BORDERLINE HIGH 160 - 189 mg/dl HIGH >190 mg/dl VERY HIGH Performed By: #### D SHAISTA, DATBMP #### [facility] [address] [address] [address] Rosie Dodson Potassium [Moles/Vol] 4.2 mmol/L Normal 3.5-5.1 [facility] Comment on above: Performed By: #### D SHAISTA, DATBMP #### [facility] [address] [address] [address] Rosie Dodson Sodium [Moles/Vol] 139 mmol/L Normal 136-145 [facility] Comment on above: Performed By: #### D ATTKRISTAL, DATBMP #### [facility] [address] [address] [address] Rosie Dodson Triglyceride [Mass/Vol] 115 mg/dL Normal <=150 [facility] Comment on above: Performed By: #### D ATTKRISTAL, DATBMP #### [facility] [address] [address] [address] Rosie Dodson Urea nitrogen [Mass/Vol] 19.0 mg/dL Critically high 7.0-18.0 [facility] Comment on above: Performed By: #### D SHAISTA, DATBMP #### [facility] [address] [place], [place] [address] Dr. Rosie Dodson Urea nitrogen/Creatini ne [Mass ratio] 20.7 mg/mg Normal [facility] Comment on above: Performed By: #### D ATTSH, DATBMP #### [facility] [address] [place], [place] [address] Dr. Rosie Dodson VLDL CALC 23.0 mg/dL Normal [facility] Comment on above: Performed By: #### D ATTSH, DATBMP #### [facility] [address] [place], [place] [address] Dr. Rosie Dodson US THYROIDon 01-28-2022 US THYROID EXAM: US THYROID HISTORY: Non-toxic uninodular goiter . Follow-up study. COMPARISON: 02/04/2021 TECHNIQUE: Multiple sonographic images of the thyroid gland were obtained, supplemented with Doppler. FINDINGS: The right lobe measures 6.5 x 2.4 x 2.0 cm. Heterogeneous echoes are noted throughout. No apparent nodule is present. The left lobe measures 5.7 x 2.2 x 2.0 cm. Heterogeneous echoes are noted throughout. In the mid aspect there is a small solid nodular structure measuring 0.5 x 0.4 x 0.5 mm. No other nodule is identified. The isthmus measures 9 mm in thickness. A small cyst is seen associated with the isthmus eccentric to the right measuring 0.4 x 0.3 x 0.3 cm. There is no evidence of a focal mass or abnormal fluid collection surrounding the gland. IMPRESSION: The thyroid gland is enlarged. The small cyst in the isthmus is not significant. A small nodular structure is seen in the mid aspect of the left lobe, which was not apparent in the prior study. This is a TI RADS 4 lesion. Biopsy is not recommended at this time. A follow study in 12 months is recommended. Except for visualization of a small nodule in the left lobe, the overall appearance is unchanged. Electronically authenticated by: KATIE GRAY Date: 2022-01-28 17:10 Normal [facility] Vital Signs Date Time Vital Sign Value Performing Clinician Facility 12-22-2023 14:05-0400 Heart rate 87 /min Maguireal Garcia DO Work Phone: [facility] 12-22-2023 14:05-0400 Respiratory rate 17 /min Magui Garcia DO Work Phone: [facility] 12-22-2023 14:05-0400 SaO2% (BldA) [Mass fraction] 95 % Magui Garcia DO Work Phone: [facility] 12-22-2023 14:00-0400 Diastolic blood pressure 62 mm[Hg] Magui Garcia DO Work Phone: [facility] 12-22-2023 14:00-0400 Systolic blood pressure 126 mm[Hg] Magui Garcia DO Work Phone: [facility] 12-22-2023 11:47-0400 Body temperature 97.2 [degF] Magui Garcia DO Work Phone: [facility] 12-22-2023 08:58-0400 Body height 172.7 cm Magui Garcia DO Work Phone: [facility] 12-22-2023 08:58-0400 Body mass index (BMI) [Ratio] 25.67 kg/m2 Magui Garcia DO Work Phone: [facility] 12-22-2023 08:58-0400 Body weight 76.57 kg Magui Garcia DO Work Phone: [facility] 09-24-2022 11:15-0400 Body height 172.72 cm Federico Ball Other [employer] Other 09-24-2022 11:15-0400 Body mass index (BMI) [Ratio] 25.31 kg/m2 Federico Ball Other [employer] Other 09-24-2022 11:15-0400 Body weight 75.52 kg Federico Ball Other [employer] Other 09-24-2022 11:15-0400 Diastolic blood pressure 79 mm[Hg] Federico Robins Other [employer] Other 09-24-2022 11:15-0400 Respiratory rate 12 /min Federico Ball Other [employer] Other 09-24-2022 11:15-0400 Systolic blood pressure 119 mm[Hg] Federico Robins Other [employer] Other 07-27-2021 12:40-0400 Body height 172.72 cm Meron Patel Other [employer] Other 07-27-2021 12:40-0400 Body mass index (BMI) [Ratio] 24.93 kg/m2 Meron Patel Other [employer] Other 07-27-2021 12:40-0400 Body temperature 97.4 [degF] Meron Patel Other [employer] Other 07-27-2021 12:40-0400 Body weight 74.39 kg Meron Patel Other [employer] Other 07-27-2021 12:40-0400 SaO2% (BldA) [Mass fraction] 95 % Meron Patel Other [employer] Other Encounters Encounter Date Encounter Type Care Provider Facility Start: 12-29-2023 End: 12-31-2023 [facility]ulatory [facility] Start: 12-29-2023 End: 12-31-2023 Subsequent hospital visit by physician [facility] Cat Scan Room [facility] CT Scan Comment on above: Hematoma Start: 12-22-2023 End: 12-22-2023 ambulatory MAGUI GARCIA [facility] Start: 12-22-2023 End: 12-22-2023 Subsequent hospital visit by physician Magui Garcia DO Work Phone: [facility] [place] Comment on above: Post-op pain (Primar y Dx) Start: 12-06-2023 End: 12-10-2023 ambulatory MAGUI GARCIA [facility] Start: 10-20-2023 End: 10-20-2023 ambulatory MAINE CHAVEZ Not Available Start: 09-01-2023 End: 09-01-2023 ambulatory KVNG HANNON Not Available Start: 02-15-2023 End: 02-15-2023 ambulatory Federico Robins Facility:[facility] Start: 02-15-2023 End: 02-15-2023 ambulatory DO Federico Ball Work Phone: [facility] Work Phone: Start: 02-15-2023 End: 02-15-2023 Patient encounter procedure DO Federico Ball Work Phone: [facility] Work Phone: Start: 02-11-2023 End: 02-11-2023 ambulatory Federico Robins Other [employer] Other Start: 02-11-2023 Telephone encounter Federico Shimon [facility] Start: 02-10-2023 Telephone encounter Federico Robins [facility] Start: 02-10-2023 End: 02-10-2023 ambulatory MAINE CHAVEZ [facility] Other Start: 12-21-2022 End: 12-21-2022 ambulatory Federico Ball Other [employer] Other Start: 12-21-2022 Telephone encounter Federico Ball [facility] Start: 10-12-2022 End: 10-12-2022 ambulatory Federico Ball Other [employer] Other Start: 10-12-2022 Telephone encounter Federico Ball FP [facility] Start: 09-28-2022 End: 09-28-2022 ambulatory Federico Robins Other [employer] Other Start: 09-28-2022 Telephone encounter Federico SHUKLA [facility] Start: 09-24-2022 End: 09-24-2022 ambulatory Federico Robins Other [employer] Other Start: 09-24-2022 Office outpatient vi sit 15 minutes Federico Robins [facility] Start: 09-23-2022 End: 09-23-2022 ambulatory Federico Robins Other [employer] Other Start: 09-23-2022 Telephone encounter Federico Robins FP [facility] Start: 07-18-2022 End: 07-18-2022 ambulatory Meron Patel Other [employer] Other Start: 07-18-2022 Telephone encounter Meron Patel [facility] Start: 07-17-2022 End: 07-18-2022 ambulatory MAINE CHAVEZ Facility:[facility] Start: 05-20-2022 ([facility]) [facility] Scheduled Federico Robins [facility] Start: 05-20-2022 End: 05-20-2022 ambulatory Federico Robins Other [employer] Other Start: 02-13-2022 End: 02-14-[address] HOLT LISTED REQUEST Facility:[facility] Start: 02-03-2022 Adult health examination Federico Robins Other [employer] Other Start: 01-28-2022 End: 01-29-[address] FEDERICO ROBINS Facility:[facility] Start: 01-20-2022 End: 01-20-2022 ambulatory DO Federico Robins Work Phone: [facility] Work Phone: Start: 01-20-2022 End: 01-20-2022 Patient encounter procedure DO Federico Robins [employer] Phone: [facility] Start: 07-27-2021 End: 07-27-2021 ambulatory Meron Patel Other [facility] [employer] Other Start: 07-27-2021 Office outpatient ne w 20 minutes Meron Patel [facility] Procedures Date Procedure Procedure Detail Performing Clinician Start: 12-29-2023 Ct pelvis w/contrast material Dominga Mathis [employer] Work Phone: Start: 12-22-2023 H/O: surgery S/P robotic sacrocolpopexy with restorelle mesh, cystoscopy, lynx sling 12/22/23 Magui Montoya Cornell DO Work Phone: Start: 12-22-2023 Blood count hemoglobin Ana Cristina Martinez MD Work Phone: Start: 01-20-2022 Screening mammography of bilateral breasts DO Federico Robins Work Phone: Start: 08-03-2018 Screening for malignant neoplasm of colon Federico Robins Other Start: 11-11-2012 General examination of patient Federico Robins Other Depression screening Poncho Robins Other Screening for malign ant neoplasm of breast Federico Robins Other Plan of Treatment Date Care Activity Detail Author Start: 12-02-2026 DTaP/Tdap/Td vaccine (5 - Tdap) DTaP/Tdap/Td vaccine (5 - Tdap) [facility] Start: 12-28-2024 GFR test (Diabetes, CKD 3-4, OR last GFR 15-59) GFR test (Diabetes, CKD 3-4, OR last GFR 15-59) [facility] Start: 01-28-2024 End: 01-28-2024 Patient encounter procedure 01/28/2024 10:45 AM EST Office Visit [facility] Uro[facility]necology and Pel[facility] Rehabilitation [address] [place] [address] Magui Garcia, DO [address] [facility] [address] [place] [address] 6 WK PO [facility] Comment on above: 6 WK PO Start: 01-04-2024 End: 01-04-2024 Patient encounter procedure 01/04/2024 2:00 PM EDT Office Visit [facility] [address] [facility] [address] [place] [address] Kim Perea, PT [address] [facility] [address] [place] [address] [facility] Start: 12-29-2023 End: 12-29-2023 Patient encounter procedure 12/29/2023 9:15 AM EDT Office Visit [facility] [address] [facility] [address] [place] [address] Dominga Mathis, MANAGER HEALTH - [employer]KE ADJUSTER [address] [facility] [address] [place] [address] 1 WK PO [facility] Comment on above: 1 WK PO Start: 12-22-2023 End: 12-22-2023 Laparoscopy colpopexy suspension vaginal apex SACRAL COLPOPEXY ROBOTIC Cystocele with rectocele Vaginal vault prolapse Urinary frequency 12/22/2023 9:52 AM EDT [facility] Start: 12-16-2023 Annual Wellness Visi t (Medicare) Annual Wellness Visit (Medicare) [facility] Start: 11-14-2023 COVID-19 Vaccine ( season) COVID-19 Vaccine () [facility] Start: 10-14-2023 Influenza vaccination Flu vaccine (# 1) [facility] Start: 02-15-2023 MG Breast - bilatera l Screening [facility] Start: 02-15-2023 Screening mammograph y of bilateral breasts MM screening mammo BI w/CAD [facility] Start: 03-04-2020 Screening for malignant neoplasm of breast Breast cancer screen [facility] Start: 2015 Respiratory Syncytia l Virus (RSV) or age 60 yrs+ (1 - 1-dose 60+ series) Respiratory Syncytial Virus (RSV) or age 60 yrs+ (1 - 1-dose 60+ series) [facility] Start: 10-20-2010 Screening for osteoporosis DEXA (modify frequency per FRAX score) [facility] Start: 10-20-2005 Shingles vaccine (1 of 2) Shingles vaccine (1 of 2) [facility] Start: 10-20-2000 Screening for malignant neoplasm of colon [facility] Start: 1995 Lipid panel [facility] Start: 10-20-1990 Diabetes screen Diabetes screen [facility] Start: 10-20-1973 Hepatitis C screening Hepatitis C sc reen [facility] Start: 1967 Depression Screen Depression Screen [facility] End: 12-22-2023 INITIATE PACU OXYGEN THERAPY PROTOCOL Initiate PACU Oxygen Therapy Protocol Respiratory Care Routine Continuous until discontinued starting 12/22/2023 [place] Phone: Comment on above: Continuous until dis continued starting 12/22/2023 Oxygen therapy [Minimum Data Set] Initiate Oxygen Therapy Protocol Respiratory Care Routine As Needed until discontinued starting 12/22/2023 [place] Phone: Comment on above: As Needed until disc ontinued starting 12/22/2023 End: 12-22-2023 , urine POCT , urine POCT Point of Care Testing Routine One Time for 1 Occurrences starting 12/22/2023 until 12/22/2023 [facility] Comment on above: One Time for 1 Occur rences starting 12/22/2023 until 12/22/2023 Immunizations Immunization Date Immunization Notes Care Provider Teddy bruno 02-03-2023 influenza, high dose seasonal, preservative-free Federico Robins Other [facility] Other 02-03-2022 influenza virus vaccine, split virus (incl. purified surface antigen) Federico Robins Other [facility] Other 02-03-2022 Prevnar 20 Federico Robins Other [facility] Other 12-02-2016 tetanus and diphther ia toxoids, adsorbed, preservative free, for adult use (5 Lf of tetanus toxoid and 2 Lf of diphtheria toxoid) Federico Robins Other [facility] Other 12-31-2014 tetanus and diphther ia toxoids, adsorbed, preservative free, for adult use (5 Lf of tetanus toxoid and 2 Lf of diphtheria toxoid) Federico Robins Other [facility] Other 10-14-2011 tetanus and diphther ia toxoids, adsorbed, preservative free, for adult use (5 Lf of tetanus toxoid and 2 Lf of diphtheria toxoid) Federico Robins Other [facility] Other 10-13-2010 diphtheria, tetanus toxoids and acellular pertussis vaccine, unspecified formulation Federico Robins Other [employer] Other pneumococcal Conjuga te, unspecified formulation; Translations: [Need for prophylactic vaccination against Streptococcus pneumoniae (pneumococcus)] Federico Robins Other [employer] Other Payers Date Payer Category Payer Medicare [id number] 2023 Medicare [id number] 2023 Self-pay [id number] 1959 Medicare [id number] 2.1 [id number] 1959 Self-pay [id number] 1959 Unknown [id number] 2.1 [id number] 1955 Unknown [id number] 1955 Unknown [id number] 1955 Unknown [id number] 1955 Unknown [id number] 1955 Unknown [id number] 1955 Unknown [id number] [id number] 1955 Unknown [id number] [id number] 1955 Unknown [id number] [id number] 1955 Unknown [id number] Medicaid [facility] [id number] Medicare MMO MCR Adv PFFS [id number] Unknown MMO [id number] Unknown [employer] BC/BS COMPA [id number] Unknown [employer] Just [employer] Me COMPA a [id number] Unknown Regular Insurance [id number] Unknown [id number] Unknown [id number] Social History Date Type Detail Facility Start: 12-06-2023 End: 12-22-2023 Sex Assigned At [facility] Start: 1955 Sex Assigned At [facility] Start: 11-16-2023 [facility] Work Phone: Start: 11-16-2023 Tobacco use and exposure Smokeless tobacco non-user [facility] Start: 12-22-2023 End: 12-30-2023 Alcoholic beverage intake Current drinker of alcohol (finding) [facility] Start: 12-06-2023 End: 12-22-2023 History of Social function [facility] Start: 12-06-2023 Alcohol Comment rarely-once a mos. B [facility] Start: 12-20-2023 Gender identity Identifies as female gender (finding) [facility] Start: 12-29-2023 Alcohol Comment Very rarely I may have1 beer [facility] Medical Equipment Procedure Code Equipment Code Equipment Original Text Equipment Identifier Dates Mesh Mail Sorter [id number] Polypr Unidir Y Cntour For Transabdominal - [id number] Start: 12-22-2023 Sling Urological Mid-Urethral Suprapubic 2 Del Lynx Ultra - [id number] FDA Start: 12-22-2023 Clinical Notes 07-27-2021 to 12-22-2023 Note Date & Type Note Facility 12-22-2023 Evaluation note Diagnosis S/P robotic sacrocolpopexy with restorelle mesh, cystoscopy, lynx sling 12/22/23- Primary Post-op pain Other acute postoperative pain documented in this encounter [facility]10-07-2024 Hospital Discharge instructions* Discharge Instructions* Susan Jordan RN - 12/20/2023 9:28 AM EDT Images from the original note were not included. [facility] POSTOPERATIVE PATIENT INSTRUCTIONS MAJOR & MINOR SURGICAL PROCEDURES Congratulations! You have taken the brave step of undergoing surgery in order to try to improve your health. Now it is time to focus on healing outside of the hospital / surgery center setting. To make your dismissal as successful as possible, it is recommended that you thoroughly review these postoperative instructions. These instructions pertain to, but are not limited to the following procedures: MAJOR Hysterectomy - Vaginal / Laparoscopic / Robotic With or Without tube-ovarian Removal (Salpingo-oophorectomy) Sacrocolpopexy / Sacroperineopexy / Sacrocervicopexy/ Hysteropexy (lifting apex to sacrum) Major Vaginal Prolapse repairs Cystocele repair (Anterior Colporrhaphy) Rectocele repair (Posterior Colporrhaphy) Enterocele repair Vaginal vault repair Closing or removal of the vagina (Colpocleisis / Colpectomy) Major urinary incontinence surgery (Gilbert Urethropexy, MMK) Major fibroid removal (Myomectomy) Major tubal surgery (re-anastomosis, ectopic , pelvic inflammatory disease) Major surgery for adhesions or endometriosis involving bowel Major vaginal mesh removal Fistula repair of the bladder or colorectum to the vagina Creation of a new vagina (Neovaginoplasty) or repair of a Mullerian Anomaly Other MINOR Hysteroscopy with Dilatation / Curettage, Endometrial Ablation / Hysterosalpingogram (HSG) Laparoscopy With or Without minor tubal or ovarian surgery Minor Vaginal Prolapse repairs Cystocele repair (Anterior Colporrhaphy) Rectocele repair (Posterior Colporrhaphy) Urethrocele repair Minor urinary incontinence surgery (Slings, Transurethral Bulking) Minor vaginal surgery (Mesh removal, Laser ablation, Biopsies, Labial revisions, Injections) Minor surgery of the bladder (DMSO, Hydrodistention, Botox, etc.) Neuromodulation Other 1 2 POST OPERATIVE BASIC INSTRUCTIONS The office will call on the Wednesday, or within 1 week, after your surgery to make sure you are doingwell and to answer questions. Your 1st post-op visit will occur within 1-2 weeks after your surgery. Your final post-op visit will occur @ 4-6 weeks depending on the surgery & your desire to return to work. Your surgery and recovery may require more visits in between the 1st and final visits. DO'S, DONT'S, & WHEN TO CALL As reviewed with you on the morning of your discharge, for the 1st week out of surgery below is a QUICK list of DO's, DONT's, and WHEN TO CALL: 5 THINGS YOU MAY DO 5 THINGS YOU MAY NOT DO FOR 4-8 WEEKS -Shower with Ivory Soap and water -Tub bathe, hot tub, or swim -Gradually increase walking - Heavy lifting > 15lbs (2 gallons worth) -Go up and down stairs slowly - Insert anything into the vagina (sex, douching, tampons) -Light housecleaning (dusting, dishwashing) - Drive a car / motorcycle (*See Special Considerations) -Short local travel (restaurant, confucianism) - Long distance travel > 1.5 hours (*See Special Considerations) 5 SYMPTOMS TO CALL FOR: -Sustained fever >100.4 despite Tylenol or a cold shower, especially associated with redness of incision/s -Pain out of the ordinary (>7) despite pain meds / anti-inflammatories -Heavy vaginal bleeding > 1 pad / hour with large red clots -Inability to eliminate urine (especially if catheterized) or flatus / stool (with sustained distention & nausea) -Calf pain or extreme shortness of breath QUESTIONS, CONCERNS, EMERGENCIES Please call the office with any questions or concerns. [phone]. If during office hours, your issue may require an appointment. If after hours, the answering service will connect you with the physician Ground Crew Supervisor. If you are concerned that your issue may be emergent, PLEASE CALL FIRST. Many issues may be resolved over the phone and avoid an unnecessary and expensive ER visit. If you truly have an emergency related to the surgery and call first: *You will be directed to the hospital ER in which you had your surgery. [facility] primarily or [facility] rarely. [facility] & [facility] patients may be asked to report to [facility] if Dr. Garcia's on-call partner is assuming responsibility. ER visits are ALWAYS covered by insurance (i.e. [facility] go to a [facility] ER.) Calling 1st expedites your care & avoids an unnecessary and costly ambulance transfer to the Hospital. Dial 911 or go to your closest ER if your emergency is related to a potential heart attack or stroke. 3 DISCHARGE MEDICINES [place] 325/5mg tablets or alternative narcotic. Take 1-2 tablets by mouth every 4-6 hours as needed for pain. Per [facility] [place] Board of Pharmacy laws, only 1 week of narcotics may be prescribed at a time. Do not take extra Tylenol (Acetaminophen) orally as [place] already contains the medicine. May take 500mg orally every 4-6 hours if off of [place]. * Ibuprofen 400-800mg is safe to take. Take 1 tablet by mouth every 8 hours for inflammation. Senokot - S. Take two tablets by mouth every night to prevent constipation. Stop if loose stools occur. If an antibiotic is required: Keflex 250-500mg take 1 tablet by mouth 3x / day as prescribed OR Cipro 250-500mg take 1 tablet by mouth 2x / day as prescribed Other medicines may be prescribed based on your post-op course or situation. Zofran 4mg for nausea,Flomax 0.4mg for voiding *You may resume taking any medications you were taking before your surgery, unless told otherwise. DUE TO BLEEDING RISK, DO NOT RESUME HOME ANTICOAGULANTS UNTIL DIRECTED SPECIAL CONSIDERATIONS After surgery, give yourself a chance to adjust and recover. Some patients feel fine within a month. Many need a little extra time. Do not be concerned if you feel fatigued for the first month, your body is recovering. It may take several weeks for you to get your energy back. Even if energy has returned, please do not be tempted to re-engage in strenuous activity. Although mild weight gain is not uncommon, most of it is IV fluid weight that your body will remove with time. You have the rest ofyour life to exercise, so some patience and rest is pineda in the short term in order to heal successfully in the senior living. Once you have fully recovered, you may focus on enjoying your life. Keep in mind, you will continue to heal for 6-12 months after surgery, so use common sense to protect your surgery (avoid repetitive heavy lifting, constipation, chronic pelvic strain.) In particular, if you had a hysterectomy, you may have both physical and emotional effects that maybe brief or terminologist. After hysterectomy, periods will stop, and a woman can no longer achieve . Despite popular myth, post-hysterectomy weight gain is not due to the hysterectomy but is usually a result of other factors. A depressive emotional reaction to loss of the uterus is not uncommon or abnormal. Please discuss any concerns with your health care provider if persistent. Sexual response may change after hysterectomy. There are no definitive studies showing decreased orgasmic potential post-hysterectomy. Some women have a heightened response due to correcting painful pathology. O varian removal may decrease estrogenization, leading to vaginal dryness and menopausal hot flashes.Hormonal therapy may need to be discussed. SOME SURGERIES HAVE SPECIAL CONSIDERATIONS MAJOR For all major surgeries listed above, you may drive after your 1week post-op visit if cleared, havediscontinued narcotic pain meds, and are able to depress the brake quickly without pain. Long distance travel may be resumed in 4 weeks if stable. With major robotic hysterectomy, you should refrain from intercourse for 8 weeks, other hysterectomies 6 weeks. MINOR Minor surgeries may drive the next day any distance if off narcotic pain meds and are able to brakesafely. For minor vaginal surgeries for prolapse and / or urinary incontinence procedures, maintain pelvic rest for 4 weeks. Exercise and work may be resumed within 2-4 weeks depending on healing. For minor surgeries of the vagina, uterus, and bladder, hysteroscopy, D&C, and laparoscopy, maintain pelvic rest for 1-2 weeks depending on healing. Exercise and work may be resumed within the week. 4 CONSENT ITEMS REVISITED IN THE POST OPERATIVE PERIOD Physical and sexual activity will be restricted to varying degrees for an indeterminate period of time, but most often 2-8 weeks depending on the breadth of surgery. It is impossible to list every undesirable effect. The condition for which surgery is done is not always cured or significantly improved, and in rare cases may even worsen. There is no 100% guarantee that the planned surgery, despite everything being done correctly and tothe medico-surgical standard, with resolve a condition 100% including but not limited to pain, prolapse, mesh erosion, urinary infections, bladder function, or defecatory dysfunction. Specifically, up to 20% of patients with abdominopelvic pain, 27% of those with UTI's, 16-26% with urinary incontine nce or voiding dysfunction, and 40% with defecatory dysfunction may not see substantial long-lasting improvement from a surgical intervention. Dangerous blood clots in the legs or lungs may occur post-operatively. Patients on chronic blood thinners, particularly those without antidote, may be at significant risk of bleeding, hemorrhage, hematoma formation, need for transfusion, and over the regular population. Life-threatening bleeding complications may even occur up to 4 weeks out of surgery even if anticoagulation is managed appropriately. If the patient has been taken off anticoagulation because of bleeding, this could exposeher to life-threatening blood clots in the legs or lungs, GA, or stroke. Elderly patients over the age of 70 may experience up to a 2-4% mortality rate in the postsurgical period related to comorbidities and declining health. A living will and code status is recommended to be reviewed. For major outpatient procedures requiring less than a 24 hour stay, you will be dismissed from the hospital or surgery setting when stable and meets criteria for discharge. Less than 5% of patients may rebound to an emergency setting for some of the risks mentioned above even though they have met criteria for dismissal earlier. Outpatient surgical recovery usually occurs between 2 and 4 weeks. For major inpatient procedures requiring an average 0-2-day hospital stay, the patient may not be fully recovered from major surgery for up to 6-8 weeks. Please understand with Medicare and insurance regulations, only 1 night will be approved for most reconstructive or robotic procedures. In regard to reconstructive pelvic and incontinence surgery: Approximately 85% of patients experience a reasonable improvement >5 years in pelvic support andurinary/fecal incontinence, as well as urinary infections, after the procedure. There is a long-term risk of recurrent prolapse in up to 30% of women who have undergone reconstructive surgery if healthy lifestyle behaviors are not maintained. This includes but is not limited to good nutrition, smoking cessation, weight loss in the obese, reduction in heavy lifting, exercise, fall prevention, and bowel regularity. Reconstructive pelvic and/or urinary/fecal incontinence surgeries may only improveyour condition/s mildly and may not completely resolve problems including but not limited to urinary tract infections and/or defecatory dysfunction. 17% of patients may still get a urinary tract infection and 40-60% of patients may still experience constipation postoperatively. It may be hard to urinate for a few days or weeks. Sometimes, up to 40% of women cannot urinate efficiently after surgery due to swelling, anesthesia, or pain. Prolonged urinary retention may rarely occur after an incontinence or pelvic prolapse surgery and is more likely if retention predates surgery or includes factors that are not limited to neuropathy, diabetes mellitus, or prior pelvic surgery. The patient may need a catheter to drain the bladder for 1-2 weeks on average. Patients in Dr. Garcia's practice most often prefer a transurethral Merino. Other choices are a suprapubic catheter or intermittent self- catheterization. The patient has been given instructions on how to manage the typeof catheter chosen, which will be reiterated postoperatively. There is a 5% chance of recurrent retention after merino removal requiring catheter replacement in the office or by ER. Despite evidence indicating no need for antibiotics with a catheter, real world experience shows a 20-40% rate of UTI with a Merino catheter which depending on personal risk factors and extent of surgery, may require a prophylactic antibiotic afterwards. Antibiotics have risks of resistance, diarrhea, and C. difficileinfection. Suprapubic catheters carry a risk of urinoma, bowel injury, and bleeding and have a UTI risk of 15-20%. Intermittent self-catheterization carries an 11% risk of a UTI. In regard to labial or perineal reconstructive surgery: You should expect some bruising and mild swelling with related discomfort following these surgeriesthat lasts 1-2 weeks. Ice packs and sitz baths may be utilized after surgery to help minimize swelling and discomfort. Mild analgesics are also used. Final optimal results can usually be appreciated in several months. Most patients may return to work or school within a week after surgery; however, strenuous activity or tight clothing is discouraged, and patients must refrain from sexual intercourse for 4-6 weeks after surgery. You may receive a topical antibiotic, which reduces risk of infection. Mild bleeding is not uncommon and can occur postoperatively if strenuous activity or intercourse is begun too early. Problems with healing, such as incision separation, suture popping, scarring, and/or pain following the surgeryare rare but can happen. 5 SPECIAL INSTRUCTIONS IF MRSA POSITIVE * Continue Bactroban to the nares 2x / day for 1 week post-operatively. Since many people are colonized in the community, it is not something we will routinely culture for post-operatively. TO PREVENT BLOOD CLOTS IN THE LEGS OR LUNGS / PNEUMONIA IN THE LUNGS Regular walking or calf stretches and wearing a supportive hose may help prevent clots in the legs or lungs. Take home your incentive spirometer if given one and utilize it as instructed to prevent pneumonia Smoking cessation before and after surgery is strongly encouraged. VAGINAL BLEEDING & DISCHARGE You will likely experience light bleeding with the potential for small dime size clots, lasting 2-3weeks after your surgery. This should NOT be construed as heavy bleeding. You may notice an increase in vaginal discharge 4-6 weeks after your surgery, which may be watery, yellowish, or pinkish. It may have more of an acidic odor. This is common as the vagina flushes out edematous body fluid and dissolves the absorbable sutures. As the healing process progresses, you may experience mild itching within the vagina, as well as outside the vaginal opening. If this itching becomes severe, and/or is accompanied by a foul smell andswelling, please call the office. DRAINS & WOUND CARE If a drain or specific wound care appliance is present at the time of dismissal, please follow additional instructions that may be provided regarding maintenance of the device/s. Basic daily maintenance of a drain is as follows: You may wash around the drain site with warm, soapy water and pat dry with a towel. If indicated, use a topical antibiotic around the drain site 2x / day. Strip or milk the drain from the drain site to the bulb suction 3x / day. This clears any blockage from the drain. Simply pinch the drain at its insertion site into your body between your thumb and forefinger. Thensqueeze and pull the drainage tubing as you move towards the drain bulb, allowing the tube to slide between your fingers with mild resistance, you should see a suction effect within the drain tube that moves fluid toward the bulb. Please call the office immediately if the drain falls out or cannot maintain suction. Please call if redness of the drain site increases and is associated with fever, pain, or purulent discharge. CONSTIPATION * Patients are often constipated after a prolonged period of bed rest, or with the use of oral narcotic pain medications. If you have not had a bowel movement for 3 days after you are dismissed from the hospital, or are uncomfortable and unable to pass stool, please try one or all of the following measures in a stepwise manner 1-5 as needed for results: Eat fruits, vegetables, prunes & whole-grain foods. Drink 8 glasses of fluid daily. Add PlumSmart juice. Metamucil, FiberCon, or other bulking medication - use as directed Milk of magnesia - 30 mL's by mouth every 12 hours Dulcolax suppository - 1 suppository per rectum every 4-6 hours Fleets enema - use as directed unless told nothing per rectum (colorectal fistula repair) BLADDER DRAINAGE There is a >70% chance you will void on your own post-operatively. In particular, reconstructiveand incontinence surgeries (whether you had incontinence before surgery or not), sometimes have surgical effects of normal swelling and new positioning of the bladder may be associated with some mildto moderate postoperative urinary leakage. Often this leakage is urge related. As discussed, pre-operatively, up to 26% of patients with prolapse and negative urodynamic testing may develop de leola incontinence afterwards. Please do not be frustrated if temporary incontinence occurs for it will most likely improve as you continue to heal. Leakage rarely persists in the long-term, there are many options for treatment, and Dr. Garcia and his office staff are there to help you every step of the way. 6 * Attachments The following attachments cannot be sent through Care Everywhere. * scopolamine transdermal (Vietnamese) [facility] Encounter Date Diagnosis Assessment Notes Treatment Notes Treatment Clinical Notes Jan, Osteopenia of right hip (ICD-10 - M85.851) [facility] Other 07-31-2023 Evaluation note* Encounter Date Diagnosis Assessment Notes Treatment Notes Treatment Clinical Notes Sep, Mild episode of recurrent major depressive disorder (ICD-10 - F33.0) [facility] Other 07-13-2023 Evaluation note* Encounter Date Diagnosis Assessment Notes Treatment Notes Treatment Clinical Notes Sep, Acute bilateral low back pain without sciatica (ICD-10 - M54.50) ROM exercises: handout given to patient Heat/ice and Tylenol. Initiate Zanaflex and Lodine. No XR necessary at this time PT? Sep, Mild episode of recurrent major depressive disorder (ICD-10 - F33.0) Disabled results in depressed mood. Recommend seeing counselor and Psych if no improvement. Continue SSRI and consider augmentation w/ Wellbutrin [facility] Other 05-06-2023 Evaluation note* Encounter Date Diagnosis Assessment Notes Treatment Notes Treatment Clinical Notes July, Thyroid nodule (ICD-10 - E04.1) Thyroid US: 07/2022 - Stable thyromegaly. - Single TI-RADS 4 nodule in the left thyroid measuring up to 7 mm - no further scans recommended [facility] Other 03-08-2023 Evaluation note* Encounter Date Diagnosis Assessment Notes Treatment Notes Treatment Clinical Notes May, COVID (ICD-10 - U07.1) Aware of isolation guidelines. Self isolate at home. - Cannot work - avoid contact with others - avoid pets - wipe counters, door knobs if touched - if can't avoid leaving home, must wear mask to protect others - need to stay isolated for 10 days from onset of symptoms or contact with COVID positive individual - to discontinue isolation must be 10 days AND must be without fever for 24 hours AND symptoms must be improving. Always wear a mask in public places. [facility] Other 05-15-2022 Evaluation note* Encounter Date Diagnosis Assessment Notes Treatment Notes Treatment Clinical Notes July, Bronchitis (ICD-10 - J40) Drink plenty fluids, get plenty of rest. Take the prednisone as prescribed until gone. Use the Flonase inhaler as prescribed until your symptoms improve. Use the albuterol inhaler as prescribed for cough or shortness of breath. Follow-up with your family physician if no improvement in 2 to 3 days. July, Acute sinusitis, recurrence not specified, unspecified location (ICD-10 - J01.90) [facility] Other Evaluation noteNo assessment information available [facility] Work Phone: Evaluation [facility]No [facility] Other Evaluation note* Diagnosis Hematoma Contusion of unspecified site documented in this encounter [facility] general Narrative - Reported* Type Description Date Surgical History appendectomy Surgical History right wrist fused Surgical History hysterectomy [facility] Other [facility] general Narrative - Reported* Type Description Date Medical History JOAQUIM (generalized anxiety disorde r) Medical History Eosinophilic esophagitis Medical History Acquired autoimmune hypothyroidi sm Medical History Nocturnal cough Medical History Major depression Medical History Primary insomnia Medical History 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 Medical History Tinnitus, right ear Medical History Menopause Medical History Esophagitis Medical History Gastroesophageal ref lux disease with esophagitis without hemorrhage Medical History Restless leg syndrome Surgical History appendectomy Surgical History right wrist fused Surgical History hysterectomy Hospitalization History see surgical history CodeEval Other history general Narrative - Reported* Type Description Date Medical History JOAQUIM (generalized anxiety disorde r) Medical History Eosinophilic esophagitis Medical History Acquired autoimmune hypothyroidi sm Medical History Nocturnal cough Medical History Major depression Medical History Primary insomnia Medical History 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 Medical History Tinnitus, right ear Medical History Menopause Medical History Esophagitis Medical History Gastroesophageal ref lux disease with esophagitis without hemorrhage Medical History Restless leg syndrome Surgical History appendectomy Surgical History right wrist fused Surgical History hysterectomy Surgical History Colonoscopy w/ polypectomy 12/14 023 Hospitalization History see surgical history CodeEval Other history general Narrative - Reported* Type Description Date Medical History JOAQUIM (generalized anxiety disorde r) Medical History Eosinophilic esophagitis Medical History Acquired autoimmune hypothyroidi sm Medical History Nocturnal cough Medical History Major depression Medical History Primary insomnia Medical History 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 Medical History Tinnitus, right ear Medical History Menopause Medical History Esophagitis Medical History Gastroesophageal ref lux disease with esophagitis without hemorrhage Medical History Restless leg syndrome Medical History Osteopenia Surgical History appendectomy Surgical History right wrist fused Surgical History hysterectomy Surgical History Colonoscopy w/ polypectomy 12/14 023 Hospitalization History see surgical history CodeEval Other Chief Complaint and Reason for Visit Chief Complaint Z12.31 Advance Directives No Advanced Directives Records Found Advance Directive Response Recorded Date/ Time Advance Directives No January 5:12pm Summary Purpose Family History No Family History Records FoundNo Family History Records FoundNo Family History Records FoundNo Family History Records FoundNo Family History Records Found Reason for Referral Specialty Diagnoses / Procedures Referred By Contac t Referred To Contact Radiology Diagnoses Hematoma Procedures CT PELVIS W CONTRAST Dominga Mathis APRN - AIR BRAKE ADJUSTER [id number] [address] Referral ID Status Reason Start Date Expiration Date Visits Re quested Visits Authorized [id number] Closed 12/29/2023 12/28/2024 1 1 Additional Source Comments REASON FOR VISIT (unrecogniz ed section and content) Specialty Diagnoses / Procedures Referred By Contac t Referred To Contact Diagnoses Cystocele with rectocele Vaginal vault prolapse Urinary frequency Cystocele with rectocele [N81.10, N81.6] Vaginal vault prolapse [N81.9] Urinary frequency [R35.0] Procedures NE LAPAROSCOPY COLPOPEXY SUSPENSION VAGINAL APEX ROBOTIC SACRAL COLPOPEXY WITH RESTORELLE MESH; CYSTOSCOPY LYNX SLING; possible [facility] POSTERIOR REPAIRS Magui Garcia DO [address] [facility] [address] [place] [address] Referral ID Status Reason Start Date Expiration Date Visits Re quested Visits Authorized [id number] 1 1 Specialty Diagnoses / Procedures Referred By Contac t Referred To Contact Radiology Diagnoses Hematoma Procedures CT PELVIS W CONTRAST Dominga Mathis APRN - AIR BRAKE ADJUSTER [address] [address] Referral ID Status Reason Start Date Expiration Date Visits Re quested Visits Authorized [id number] Closed 12/29/2023 12/28/2024 1 1 Care Teams (unrecognized sec tion and content) Team Status: Inactive Member Role Status Dates Federico Robins DO Primary Care Provider, Attending Pr alyciaer Active Team Status: Active Member Role Status Dates Federico Robins DO Primary Care Provider Active Team Status: Inactive Member Role Status Dates Referral Self Attending Provider Active Federico Robins DO Primary Care Provider Active Manager Of Application Development Relationship Specialty Start Date End Date Federico Robins DO [address] [place] [id number] PCP - General Internal Medicine 09/08/23 Manager Of Application Development Relationship Specialty Start Date End Date Federico Robins DO [address] [place] [id number] PCP - General Internal Medicine 09/08/23 Goals (unrecognized section and content) Goals may be documented in a n alternate section INFORMATION SOURCE (unrecogn ized section and content) DATE CREATED AUTHOR 07/24/2022 [facility] DATE CREATED AUTHOR AUTHOR'S ORGANIZ ATION 02/21/2023 [facility] DATE CREATED AUTHOR AUTHOR'S ORGANIZ ATION 10/22/2023 [facility] DATE CREATED AUTHOR AUTHOR'S ORGANIZ ATION 01/01/2024 [facility] DATE CREATED AUTHOR AUTHOR'S ORGANIZ ATION 01/31/[address] [facility] Ordered Prescriptions (unrec ognized section and content) Prescription Sig Dispensed Refills Start Date End Da te tamsulosin (FLOMAX) 0.4 MG capsule Take 1 capsule by mouth daily 7 capsule 5 12/22/2023 ondansetron (ZOFRAN) 4 MG tablet Take 1 tablet by mouth every 8 hours as needed for Nausea or Vomiting 15 tablet 12/22/2023 12/27/2023 sennosides-docusate sodium (SENOKOT-S) 8.6-50 MG tablet Take 2 tablets by mouth at bedtime 60 tablet 1 12/22/2023 cephALEXin (KEFLEX) 500 MG capsule Take 1 capsule by mouth 2 times daily for 7 days Please take FIVE days of antibiotic if discharged home WITHOUT merino catheter. Please take SEVEN days of antibiotic if discharged home WITH merino catheter. 14 capsule 12/22/2023 12/29/2023 ibuprofen (IBU) 400 MG tablet Take 1 tablet by mouth 3 times daily as needed for Pain 30 tablet 1 12/22/2023 oxyCODONE-acetaminophe n (PERCOCET) 5-325 MG per tabletIndications:Post -op pain Take 1 tablet by mouth every 6 hours as needed for Pain for up to 5 days. Intended supply: 5 days. Take lowest dose possible to manage pain Max Daily Amount: 4 tablets 20 tablet 12/22/2023 12/27/2023 sennosides-docusate sodium (SENOKOT-S) 8.6-50 MG tablet Take 2 tablets by mouth at bedtime 60 tablet 1 12/22/2023 12/22/2023 cephALEXin (KEFLEX) 500 MG capsule Take 1 capsule by mouth 2 times daily for 7 days Please take FIVE days of antibiotic if discharged home WITHOUT merino catheter. Please take SEVEN days of antibiotic if discharged home WITH merino catheter. 14 capsule 12/22/2023 12/22/2023 ondansetron (ZOFRAN) 4 MG tablet Take 1 tablet by mouth every 8 hours as needed for Nausea or Vomiting 15 tablet 12/22/2023 12/22/2023 oxyCODONE-acetaminophe n (PERCOCET) 5-325 MG per tabletIndications:Post -op pain Take 1 tablet by mouth every 6 hours as needed for Pain for up to 5 days. Intended supply: 5 days. Take lowest dose possible to manage pain Max Daily Amount: 4 tablets 20 tablet 12/22/2023 12/22/2023 ibuprofen (IBU) 400 MG tablet Take 1 tablet by mouth 3 times daily as needed for Pain 30 tablet 1 12/22/2023 12/22/2023 Scheduled Active and Recently Administ ered Medications (unrecognized section and content) Medication Order 12/20/2023 12/21/2023 12/22/2023 ceFAZolin (ANCEF) 2,000 mg in sodium chloride 0.9 % 50 mL IVPB (mini-bag) 2,000 mg, IntraVENous, B[employer] M[employer] CARRIAGE OPERATOR TO O.R., 1 dose, On Wed12/22/23 at 0900, Antimicrobial Indications: Surgical Prophylaxis, Pre-op (day of surgery) 0900 (Due) fentaNYL (SUBLIMAZE) injection 100 mcg (COMPLETED) 100 mcg, IntraVENous, ONCE, 1 dose, On Wed12/22/23 at 0930, If oral and IV narcotics ordered, use oral first and only use IV if oral is ineffective or cannot take oral. Do Not give oral and IV within 1 hour of each other unless specifically ordered. 0940 (Given - Provid er: Chika Mak RN - Comment: block) gabapentin (NEURONTIN) capsule 300 mg (COMPLETED) 300 mg, Oral, ONCE, 1 dose, On Wed12/22/23 at 0900 0908 (Given - Provid er: Chika Mak RN) meperidine (DEMEROL) injection 12.5 mg 12.5 mg, IntraVENous, ONCE, 1 dose, On Wed12/22/23 at 1330, May give every 5 minutes to max of 50mg., PACU only 1330 (Due) midazolam PF (VERSED) injection 2 mg (COMPLETED) 2 mg, IntraVENous, ONCE, 1 dose, On Wed12/22/23 at 0930 0940 (Given - Provid er: Chika Mak RN - Comment: block) phenazopyridine (PYRIDIUM) tablet 100 mg (COMPLETED) 100 mg, Oral, ONCE, 1 dose, On Wed12/22/23 at 0900, Take with food. May cause discoloration of urine. 907 (Given - Provid er: Chika Mak RN) scopolamine (TRANSDERM-SCOP) transdermal patch 1 patch 1 patch, TransDERmal, Administer over 72 Hours, ONCE, On Wed12/22/23 at 0900, For 1 dose, delivers 1 mg over 3 days. Apply patch to hairless area behind the ear. 908 (Patch Applied - Provider: Chika Mak RN - Comment: behind right ear) sodium chloride flush 0.9 % injection 5-40 mL 5-40 mL, IntraVENous, EVERY 12 HOURS SCHEDULED (2 times per day), First dose on Wed12/22/23 at 0900, Until Discontinued, For Line Patency: Peripheral IV = 5 mL; Midline or Central Line = 10 mL/lumen. If following IV push medication, administer flush at same rate as the IV push. Flush volume is determined by type of infusion therapy being given. For non-viscous solutions use: Peripheral IV = 5 mL Midline or Central Line = 10 mL/lumen For viscous solutions (i.e. blood components, parenteral nutrition, contrast media, or after obtaining blood sample) use: Peripheral IV = 10 mL Midline or Central Line = 20 mL/lumen, Pre-op (day of surgery) 0900 (Due)2100 (Due) sodium chloride flush 0.9 % injection 5-40 mL 5-40 mL, IntraVENous, EVERY 12 HOURS SCHEDULED (2 times per day), First dose on Wed12/22/23 at 2100, Until Discontinued, For Line Patency: Peripheral IV = 5 mL; Midline or Central Line = 10 mL/lumen. If following IV push medication, administer flush at same rate as the IV push. Flush volume is determined by type of infusion therapy being given. For non-viscous solutions use: Peripheral IV = 5 mL Midline or Central Line = 10 mL/lumen For viscous solutions (i.e. blood components, parenteral nutrition, contrast media, or after obtaining blood sample) use: Peripheral IV = 10 mL Midline or Central Line = 20 mL/lumen, PACU only 2100 (Due) Continuous Medication Order 12/20/2023 12/21/2023 12/22/2023 lactated ringers IV soln infusion IntraVENous, at 125 mL/hr, CONTINUOUS, Starting on Wed12/22/23 at 0900, Pre-op (day of surgery) 0908 (New Bag - Prov ider: Chika Mak RN)0952 (NoRateChange - Provider: NEHA Denson CRNA)0952 (Paused - Provider: NEHA Denson CRNA - Comment: Switch to gravity)0953 (Restarted - Provider: NEHA Denson CRNA - Comment: 250ml gone upon arrival to or)1013 (New Bag - Provider: NEHA Denson CRNA)1144 (Anesthesia Volume Adjustment - Provider: NEHA Denson CRNA) PRN Medication Order 12/20/2023 12/21/2023 12/22/2023 0.9 % sodium chloride infusion IntraVENous, at 5-250 mL/hr, PRN, if patient receiving piggyback infusions and maintenance fluids are not ordered OR KVO fluids to protect IV site / prevent frequent line interruptions/ long duration, Starting on Wed12/22/23 at 0841, For piggyback infusion, administer at same rate as piggyback for a total of 25 mL. Enter 25 mL into dose field and piggyback rate into rate field of order. If piggyback is infusing at a rate less than 100 mL/hr, enter 25 mL into dose field and 100 mL/hr into rate field of order. For KVO fluids, enter rate of 20 mL/hr or less into rate field of order., Pre-op (day of surgery) 0.9 % sodium chloride infusion IntraVENous, at 100 mL/hr, PRN, If patient receiving piggyback infusions without ordered maintenance IV fluids or with frequent/long duration piggyback infusions, Starting on Wed12/22/23 at 1314, Administer at the same rate as the piggyback being infused., PACU only diphenhydrAMINE (BENADRYL) injection 12.5 mg 12.5 mg, IntraVENous, ONCE PRN, 1 dose, Starting on Wed12/22/23 at 1314, Until Xi 12/23/23 at 1314, Itching, PACU only hydrALAZINE (APRESOLINE) injection 10 mg(Linked Group 1) 10 mg, IntraVENous, EVERY 15 MIN PRN, 2 doses, Starting on Wed12/22/23 at 1314, Until Discontinued, High Blood Pressure, for SBP greater than 180 mmHg for 2 consecutive measurements taken from different sites, If heart rate is greater than 60 bpm, hold hydralazine and use labetalol if ordered, otherwise contact provider. Inform provider if SBP is still greater than 180 mmHg 10 minutes after second antihypertensive dose is administered., PACU only HYDROmorphone (DILAUDID) injection 0.5 mg 0.5 mg, IntraVENous, EVERY 5 MIN PRN, 4 doses, Starting on Wed12/22/23 at 1314, Until Discontinued, Pain Severe (7-10), Phase I - Initial therapy for severe pain., PACU only labetalol (NORMODYNE;TRANDATE) injection 10 mg(Linked Group 1) 10 mg, IntraVENous, EVERY 15 MIN PRN, 2 doses, Starting on Wed12/22/23 at 1314, Until Discontinued, High Blood Pressure, for SBP greater than 180 mmHg for 2 consecutive measurements taken from different sites., If heart rate is 60 bpm or less hold labetalol and use hydralazine if ordered, otherwise contact provider. Inform provider if SBP is still greater than 180 mmHg, 10 minutes after second antihypertensive dose is administered., PACU only lidocaine PF 1 % injection 1 mL 1 mL, IntraDERmal, ONCE PRN, 1 dose, Starting on Wed12/22/23 at 0841, Until Xi 12/23/23 at 0841, IV start, Pre-op (day of surgery) lidocaine PF 1 % injection (CANCELED) PRN, Starting on Wed12/22/23 at 1122, Until Wed12/22/23 at 1146, Intra-op 1122 (Given - Provid er: Magui Garcia DO - Comment: suprapublic) lidocaine-EPINEPHrine 1 %-1:[id number] injection (CANCELED) PRN, Starting on Wed12/22/23 at 1125, Until Wed12/22/23 at 1146, Intra-op 1125 (Given - Provid er: Magui Garcia DO) metoclopramide (REGLAN) injection 10 mg 10 mg, IntraVENous, ONCE PRN, 1 dose, Starting on Wed12/22/23 at 1314, Until Xi 12/23/23 at 1314, Nausea, Secondary antiemetic therapy., PACU only midazolam PF (VERSED) injection 2 mg 2 mg, IntraVENous, ONCE PRN, 1 dose, Starting on Wed12/22/23 at 1314, Until Xi 12/23/23 at 1314, Anxiety, PACU only morphine (PF) injection 1 mg 1 mg, IntraVENous, EVERY 5 MIN PRN, 4 doses, Starting on Wed12/22/23 at 1314, Until Discontinued, Pain Moderate (4-6), Phase I - Initial therapy for moderate pain., PACU only naloxone 0.4 mg in 10 mL sodium chloride syringe IntraVENous, PRN, Opioid Reversal, Starting on Wed12/22/23 at 1314, PRN if respiratory rate is less than 6/min and patient is difficult to arouse then notify physician STAT. Mix 9 mL of sodium chloride 0.9% with 0.4 mg (1 mL) of naloxone (NARCAN) in 10 mL syringe. (Note: dilution is 0.04 mg/mL) Give 0.08 mg (2 mL of special dilution), slow IV push, repeat up to 0.4 mg (10 mL) or until patient is responsive to physical stimulation and respiratory rate is equal to or greater than 6 breaths/min. Continue to observe, if no response within 3 minutes of administration of 0.4 mg (10 mL) total, repeat dose (0.4 mg as administered previously). Concentration 0.04 mg/mL, PACU only ondansetron (ZOFRAN) injection 4 mg 4 mg, IntraVENous, ONCE PRN, 1 dose, Starting on Wed12/22/23 at 1314, Until Xi 12/23/23 at 1314, Nausea, Initial antiemetic therapy., PACU only oxyCODONE (ROXICODONE) immediate release tablet 10 mg(Linked Group 2) 10 mg, Oral, PRN, 1 dose, Starting on Wed12/22/23 at 1314, Until Wed12/22/23 at 2359, Pain Severe (7-10), PHASE II, PACU only oxyCODONE (ROXICODONE) immediate release tablet 5 mg(Linked Group 2) 5 mg, Oral, PRN, 1 dose, Starting on Wed12/22/23 at 1314, Until Wed12/22/23 at 2359, Pain Moderate (4-6), PHASE II, PACU only sodium chloride flush 0.9 % injection 5-40 mL 5-40 mL, IntraVENous, PRN, Starting on Wed12/22/23 at 0841, Until Discontinued, Line Care, After every IV line use, For Line Patency: Peripheral IV = 5 mL; Midline or Central Line = 10 mL/lumen. If following IV push medication, administer flush at same rate as the IV push. Flush volume is determined by type of infusion therapy being given. For non-viscous solutions use: Peripheral IV = 5 mL Midline or Central Line = 10 mL/lumen For viscous solutions (i.e. blood components, parenteral nutrition, contrast media, or after obtaining blood sample) use: Peripheral IV = 10 mL Midline or Central Line = 20 mL/lumen, Pre-op (day of surgery) sodium chloride flush 0.9 % injection 5-40 mL 5-40 mL, IntraVENous, PRN, Starting on Wed12/22/23 at 1314, Until Discontinued, Line Care, After every IV line use, For Line Patency: Peripheral IV = 5 mL; Midline or Central Line = 10 mL/lumen. If following IV push medication, administer flush at same rate as the IV push. Flush volume is determined by type of infusion therapy being given. For non-viscous solutions use: Peripheral IV = 5 mL Midline or Central Line = 10 mL/lumen For viscous solutions (i.e. blood components, parenteral nutrition, contrast media, or after obtaining blood sample) use: Peripheral IV = 10 mL Midline or Central Line = 20 mL/lumen, PACU only No Frequency Medication Order 12/20/2023 12/21/2023 12/22/2023 lidocaine 1 % injection 1 dose, Starting on Wed12/22/23 at 1008, Until Wed12/22/23 at 2214, Chica Yates: franciinet Trudy palacios Katherine: cabinet override 1015 (Due) lidocaine-EPINEPHrine 1 %-1:[id number] injection 1 dose, Starting on Wed12/22/23 at 1008, Until Wed12/22/23 at 2214, Chica Yates: cabinet Trudy palacios Katherine: cabinet override 1015 (Due) Linked Groups Order Group 1: labetalol (NORMODYNE;TRANDATE) injection 10 mgJump to med 10 mg, IntraVENous, EVERY 15 MIN PRN, 2 doses, Starting on Wed12/22/23 at 1314, Until Discontinued, High Blood Pressure, for SBP greater than 180 mmHg for 2 consecutive measurements taken from different sites., If heart rate is 60 bpm or less hold labetalol and use hydralazine if ordered, otherwise contact provider. Inform provider if SBP is still greater than 180 mmHg, 10 minutes after second antihypertensive dose is administered., PACU only Or hydrALAZINE (APRESOLINE) injection 10 mgJump to med 10 mg, IntraVENous, EVERY 15 MIN PRN, 2 doses, Starting on Wed12/22/23 at 1314, Until Discontinued, High Blood Pressure, for SBP greater than 180 mmHg for 2 consecutive measurements taken from different sites, If heart rate is greater than 60 bpm, hold hydralazine and use labetalol if ordered, otherwise contact provider. Inform provider if SBP is still greater than 180 mmHg 10 minutes after second antihypertensive dose is administered., PACU only Group 2: oxyCODONE (ROXICODONE) immediate release tablet 5 mgJump to med 5 mg, Oral, PRN, 1 dose, Starting on Wed12/22/23 at 1314, Until Wed12/22/23 at 2359, Pain Moderate (4-6), PHASE II, PACU only Or oxyCODONE (ROXICODONE) immediate release tablet 10 mgJump to med 10 mg, Oral, PRN, 1 dose, Starting on Wed12/22/23 at 1314, Until Wed12/22/23 at 2359, Pain Severe (7-10), PHASE II, PACU only FOR RECORDS PERTAINING TO PATIENTS WHO ARE OR HAVE BEEN ENROLLED IN A CHEMICAL DEPENDENCY/SUBSTANCEABUSE PROGRAM, SOME INFORMATION MAY BE OMITTED. This clinical summary was aggregated from multiple sources. Caution should be exercised in using it in the provision of clinical care. This summary normalizes information from multiple sources, and as a consequence, information in this document may materially change the coding, format and clinical context of patient data. In addition, data may be omitted in some cases. CLINICAL DECISIONS SHOULD BE BASED ON THE PRIMARY CLINICAL RECORDS. [employer] provides no warranty or guarantee of the accuracy or completeness of information in this document.
== END 2024-01-31 12:53 | disposition home or self-care (01) ==
LOC: US 12:52
PROVIDERS: PCP Internal Medicine; Visit Provider Otolaryngology
DX: E04.1 Nontoxic single thyroid nodule (principal)
CPT/HCPCS: 76536

== ENCOUNTER 2024-02-15 15:07 | Outpatient (OUT) | payer MEDICARE, SELFPAY ==
[2024-02-15 15:56] LABS: Thyroid Stimulating Hormone 2.453 uIU/mL (0.358-3.740)
== END 2024-02-15 15:08 | disposition home or self-care (01) ==
LOC: LAB 15:07
PROVIDERS: PCP Internal Medicine; Visit Provider Internal Medicine
DX: E06.3 Autoimmune thyroiditis (principal)
CPT/HCPCS: 36415; 84443

== ENCOUNTER 2025-02-21 12:52 | Outpatient (OUT) | payer MEDICARE, SELFPAY ==
--- OUTSIDE RECORDS SUMMARY | 2025-02-12 05:32 | XMS_ITS | Continuity of Care Document ---
Author Organization [facility] Address [address] [place] [address] Phone Care Team Providers Care Financial Recording Clerk Name Role Phone Federico Robins DO Primary Care Provider Federico Robins DO Attending Provider Care Teams Patient Care Team Team Status: Active Member Role/Relationship Status Dates Federico Robins DO Primary Care Provider Active Visit Care Team Team Status: Inactive Member Role/Relationship Status Dates Federico Robins DO Primary Care Provider Active Start: February 12, 2025 End: February 12enjamp Robins DOAttending ProviderActiveStart: February 12, 2025 End: February 12, 2025 Chief Complaint and Reason for Visit Chief Complaint Admit Date Wellness February 12, 2025 9 :24am Reason for Visit Admit Date Hypothyroid February 12, 2025 9 :24am Medicare annual wellness visit, subseque nt February 12, 2025 9:24am Mild episode of recurrent major depressi ve disorder February 12, 2025 9:24am Osteopenia February 12, 2025 9 :24am Restless leg syndrome February 12, 2025 9:24am Screening mammogram for breast cancer [facility] [place]2024 9:24am Thyroid nodule February 12, 2025 9 :24am Allergies, Adverse Reactions, Alerts Allergen Type Severity Reaction Last Updated Verified Status No Known Allergies Allergy Unknown February 12, 2025 9:30amYesActive Social History Smoking Status Status Start Date End Date Date of Observa tion Never smoked tobacco (finding) February 03, 2023 8:51am Observation Status Observation Response Date of Response Legal Sex [facility] (finding) [facility] Family History Relationship Condition Age at Onset Recorded Date/T ivis father Heart disease Unknown DeceasedUnknownsisterDeceasedUnknown Problems Active Problems Problem Diagnosis/Recorded Date Onset Date Status C omments Medicare annual wellness visit, subsequent February 05, 2024 11:43am Unknown Active Gastroesophageal reflux disease with esophagitis without hemorrhageApril 2023 10:05amUnknownActivePrimary insomniaApril 2023 10:05amUnknownActiveGAD (generalized anxiety disorder)June 19, 2023 10:05amUnknownActiveScreening mammogram for breast cancerNovember 2023 11:44amUnknownActiveThyroid noduleNovember 2023 8:45amUnknownActiveThyroid US: - 7mm TR4 left sided nodule - 01/2023- 10mm TR4 left sided nodule - 01/2024Low back strainDecember 2023 12:30pmUnknownActiveHypercholesterolemiaDecember 2023 9:23pm UnknownActiveASCVD risk: 8.5%HypothyroidSeptember 2023 1:57pmUnknownActive OverweightApril 2023 10:20amUnknownActiveOsteopeniaApril 2023 10:05am UnknownActiveRestless leg syndromeApril 2023 10:05amUnknownActiveMild episode of recurrent major depressive disorderApril 2023 10:05amUnknown ActiveEosinophilic esophagitisApril 2023 10:05amUnknownActive Medications Medication Status Dose Units Route Directions Qty Days Refills S tart Date Stop Date End Date Reason(s) Instructions Adherence Ropinirole 1 mg tablet Discontinued 0 .ROUTE.HZCAXAL231Meoki 2023 12:37pmMarch 2024 11:02amTAKE 1 TABLET BY MOUTH AT BEDTIMEVenlafaxine 150 mg capsule,extended release 23zjGtscueynuyzi9 .ROUTE.EZRQNYA616Shii 2023 5:36pmDecember 2023 9:11amTAKE 1 CAPSULE BY MOUTH WITH FOOD DAILYDiazepam 5 mg sbxlaoQinyzonkdthg0NBWDUjnbg at vvqpnry66 901July 2023 9:10amJanuary 2024 9:12amPrimary insomnia Primary insomniaAtorvastatin 20 mg mosfhoLqccchbkuhhy12DFQBDpxwr cvqiqrn22892 February 17, 2024 12:00amDecember 2023 12:08pmVenlafaxine 150 mg capsule,extended release 31ybWcegdadgsubi4.ROUTE.NABSFWW005Hsfpqqdg 15th, 2024 9:11amJune 2024 12:09pmTAKE 1 CAPSULE BY MOUTH DAILY WITH FOODDiazepam 5 mg bcdjqrRttrmtzyicae3UEQGWvjkd at txxldan27688Yavxitd 19th, 2025 9:11am December 06, 2024 12:15pmPrimary insomnia Primary insomniaRopinirole 1 mg tabletActive0.ROUTE.KCUVDJO749Alyyj 2024 11:02amTAKE 1 TABLET BY MOUTH AT BEDTIMEComplies with drug therapyVenlafaxine 150 mg capsule,extended release 05eeYrmtcsoedcoy9.ROUTE.CJOTZLX933Zrgb 23rd, 2025 12:08pmSeptember 2024 11:59amTAKE 1 CAPSULE BY MOUTH DAILY WITH FOOD Venlafaxine 150 mg capsule,extended release 93weDllids772ZZEOArjwk61255Rgiioretk 2024 11:59amComplies with drug therapyDiazepam 5 mg lmxrjpUflkdzsnuadn3KR PODaily at bdawjps29695Fqlmniybr 2024 12:14pmSeptember 2024 12:26pm Primary insomnia Primary insomniaDiazepam 5 mg ykcvfxRnmuns7AVOCTwsod at fhdvrpo02096Zhepafrll 2024 12:26pmPrimary insomnia Primary insomniaComplies with drug therapyAlbuterol Sulfate 90 mcg/actuation HFA aerosol jjlcofgOdkowyffhsja6ZZQGQXLFLFKMJOTckg times dailyApril 2023 11:00pmSeptember 2023 12:33pmDiazepam 5 mg bzxxphJjetrjulooli0STQIYpxxd at bedtimeApril 2023 11:00pmJuly 2023 9:11amEtodolac 500 mg tablet Fxnxagxmoqfg203AEDGGdqzt dailyApril 2023 11:00pmSeptember 2023 12:33pmFluticasone Propionate 50 mcg/actuation spray,suspensionDiscontinued2 SPRAYINTRANASALDailyApril 2023 11:00pmSeptember 2023 12:43pm Levothyroxine 50 mcg jleimzXozsnp86HOOFMQymakAncyo 2023 11:00pmComplies with drug therapyTizanidine 4 mg fweeaeNswnihvctjkp5JLXSAovwf times dailyApril 2023 11:00pmSeptember 2023 12:43pm1/2 - 1 Orally Three times a day as needed for painVenlafaxine 150 mg capsule,extended release 12zhSrywmgzzzwdj669QL PODailyApril 2023 11:00pmJune 2023 5:36pmPhentermine (Adipex-P) 37.5 mg dtkseaJzzsfosbzoqk80.7WZGJXiofv56300Srseq 2023 11:00pmSeptember 2023 12:33pmOverweight Overweightmust administer 30 minutes before or 1-2 hours after breakfast Ropinirole 1 mg vklwbbUhgzaahnybve2QGFJSbziv at bedtimeMarch 2023 11:00pm June 14, 2023 12:37pmLidocaine 5 % adhesive patch,wectilxfiJjfuat0YJIGBUDBEECV Ewdvp173Irioemfw 19th, 2024 12:00amleave on most painful area for up to 12 hrs Complies with drug therapyNaproxen 500 mg fgnlmsRtcujy237CFXRQmupt daily as needed for nxsa40799Pubinegk 2023 12:00amComplies with drug therapy Cyclobenzaprine 10 mg nllmsbDsnopv55KYOCFyazd times daily as needed for muscle dzlrz0150Qxwogerm 19th, 2024 12:00amComplies with drug therapy Immunizations Immunization Event Date Not Given Reason Dose Number [employer] Assistant Lot Number Reason(s) Given Vaccine Information Statement (VIS) Detail Administration Location DTap, unspecified October 13, 2010 influenza, unspecified formulationNovember 2021influenza, unspecified formulationNovneumococcal Conjugate Vaccine, 20 valentNovember 2021Tetanus, Diphtheria adult, 5 Lf pres free absAugust 2011Tetanus, Diphtheria adult, 5 Lf pres free absOctober 2014Tetanus, Diphtheria adult, 5 Lf pres free absSeptember 2016 Vital Signs Vital Reading Result Reference Range Collection Date/Time Height 66 [in_i] February 12, 2025 9:75myFfuffv82.51 kgDecember 2024 9:35amHeart Rate98 /pzr24-465Dxtgrsyi 2024 9:35amRespiratory rate12 /yth44-77Bgydbdyq 2024 9:35amBP Uozexrxf177 mm[Hg]100-140Decemb2024 9:35amBP Lznzhiiii09 mm[Hg]60-100December 2024 9:35amBMI (Body Mass Index)28.6 kg/v7Sobsgnpm2024 9:35am Advance Directives Advance Directive Response Recorded Date/ Time Advance Directives No January 5:12pm Insurance Providers Guarantor Kleber Santos Address [address] [place], [place] [id number] Info.Home Phone: Payer Group Member ID Coverage Type Subscriber Relationship to Subscriber Effective Date Expiration Date MMO Id: [id number] Caudill , M Id: [id number] [address] [place] [address] Home Phone: Email: [email or web address] Retired Id: [id number] Caudill , M Id: [id number] [address] [place] [phone] Home Phone: Email: [email or web address] Medicaid Retired Id: [id number] Caudill , M Id: [id number] [address] [place] [address] Home Phone: Email: [email or web address] COMPA [id number] Caudill , M Id: [id number] [address] [place] [address] Home Phone: Email: [email or web address] Just For Me COMPA [id number] Caudill , M Id: [id number] [address] [place] [address] Home Phone: Email: [id number] Caudill , M Id: [id number] [address] [place] [address] Home Phone: Email: [email or web address] Adv PFFS Id: [id number] Shola , M Id: [id number] [address] [place] [address] Home Phone: Email: [email or web address] PFFS [id number] Shola , M Id: [id number] [address] [place] [address] Home Phone: Email: [email or web address] PFFS [id number] Shola , M Id: [id number] [address] [place] [address] Home Phone: Email: [email or web address] HospitalfRegular Insurance [address] [place] [address] Work Phone: [id number] Caudill , M Id: [id number] [place] [address] Home Phone: Email: [email or web address] Encounter Location(s) Arrival/Admit Date Discharge/Departure Date Discharge/Departure Disposition Provider(s) Departed Physician/ Provider Office Visit -[facility] February 12, 2025 9:24am February 12, 2025 10:08am Discharged to home care or self care (routine discharge) Federico Robins , Recent Diagnosis Onset Date Admit Date Hypothyroid Unknown February 12 9:24am Medicare annual wellness visit, subsequent Unkno wn February 12, 2025 9:24am Mild episode of recurrent ma madeline depressive disorder Unknown February 12, 2025 9:24am Osteopenia Unknown February 12 9:24am Restless leg syndrome Unknown February 122024 9:24am Screening mammogram for breast cancer Unknown February 12, 2025 9:24am Thyroid nodule Unknown February 12 9:24am Assessments Diagnosis Onset Date Resolution Status Admit Date Hypothyroid acuteDece2024 9:24amMedicare annual wellness visit, subsequentacute February 12, 2025 9:24amMild episode of recurrent major depressive disorder acuteDece2024 9:24amOsteopeniaacuteDece2024 9:24amRestless leg syndromeacuteFebruary 12, 2025 9:24amScreening mammogram for breast cancer acuteDe2024 9:24amThyroid noduleacuteFebruary 12, 2025 9:24am Plan of Treatment Author Federico Robins [facility] 20[facility] 5:42pmI have instructed this patient on the recommended lifestyle changes, which includes a low fat, high fiber diet along with a regular exercise routine. I have also reviewed the recommended age-appropriate preventive testing for this patient. I have also reviewed the recommended vaccines for their age and risk factors. Thyroid nodule: - 7mm TR4 left sided nodule (01/2023) - 10mm TR4 left sided nodule - 01/2024 Referred to ENT - continued yearly surveillance US Instructed on a healthy diet and exercise routine. Instructed to continue medical treatment w/o interruption. Instructed to avoid abrupt d/c of medication due to w/d symptoms. Continue Venlafaxine without interruption Clinically euthyroid, monitor TSH yearly Instructed on healthy diet and low impact exercise Symptoms tolerable, continue medical therapy Continue Ropinirole without interruption Instructed to continue calcium and vitamin D supplements. Instructed on weight bearing exercises. Monitor w/ DEXA qoy. DEXA: -0.1 spine, -1.6 right hip (01/2023) I have instructed this patient on monthly SBE and recommended yearly mammograms. Future Tests Future scheduled test information is unavailable Pending Tests Test Name Ordered Date Scheduled Date XR dexa axial skeleton February 07, 2025 5:42p m MM screening mammo BI w/CADFebruary 07, 2025 5:42pmMM screening mammo BI w/CAD February 12, 2025 9:46am Future Visits Future appointment information is unavailable Future Procedures Future procedure information is unavailable Future Medications Future medication information is unavailable Patient Instructions Patient instructions are unavailable
--- NOTE | 2025-02-21 12:54 | US_ITS ---
The [address] [address] Patient Name: EDIS MACARIO MRN: [id number] date: 1955 Sex: F Assigned Patient Location: US Current Patient Location: Accession/Order Number: [id number] Exam Date: 02/21/2025 13:00 Report Date: 02/22/2025 08:57 At the request of: MAINE CHAVEZ MD Procedure: US thyroid THYROID ULTRASOUND COMPARISON: 01/31/2024 and 01/28/2023 CLINICAL DATA: Follow-up thyroid nodularity The thyroid gland is enlarged. The right lobe measures 6.5 x 2.6 x 1.9 cm. The left lobe measures 6.1 x 2.7 x 1.8 cm. This measures 8 - 9 mm. Thyroid echotexture is heterogeneous and there is increased vascularity. At the right isthmus there is an anechoic nodule measuring 4 x 4 x 5 mm that is likely a colloid cyst. At the midpole on the left, there is a heterogeneous hypoechoic nodule measuring 13 x 7 x 13 mm (TI-RADS 4) which has increased in size. No new nodularity seen. US/US thyroid IMPRESSION: ENLARGED HETEROGENEOUS THYROID WITH HYPEREMIA. ENLARGING TI-RADS 4 LEFT THYROID NODULE. ULTRASOUND-GUIDED BIOPSY COULD BE CONSIDERED. THERE IS NO INTERVENTION CONTINUED ANNUAL FOLLOW-UP IS RECOMMENDED. Impression dictated by: Ashtyn Hernandez M.D. 02/22/2025 8:57 AM Dictation Location: [place] [address] Electronically authenticated by: [id number] Y Date: 02/22/2025 08:57
--- OUTSIDE RECORDS SUMMARY | 2025-02-21 12:54 | XMS_ITS | CCD ---
Author Organization [facility] Care Team Providers Care Platen Grinder Name Role Phone Meron Patel Unavailable DO Federico Robins Primary Care Provider [phone] DO Federico Robins Attending Provider Federico Robins Unavailable REQUEST, DR NONE LISTED Attending Unavaila ble REQUEST, NONE LISTED Consulting Unavaila ble BALL, DR SCOTT Primary Care Unavailable REQUEST, NONE LISTED Admitting Unavaila ble TIMMIS, MARYANN Consulting Unavailable BALL, DR SCOTT Primary Care Unavailable TIMMIS, MARYANN Admitting Unavailable TIMMIS, MARYANN Attending Unavailable BALL, DR SCOTT Primary Care Unavailable TIMMIS, MARYANN Admitting Unavailable TIMMIS, MARYANN Attending Unavailable TIMMIS, MARYANN Consulting Unavailable NEFCY, PETER Consulting Unavailable Self, Referral Attending Provider Unavailable DO Federico Robins Primary Care Provider [phone] Federico Robins Primary Care Unavailable Self, Referral Attending Unavailable Self, Referral Admitting Unavailable Federico Robins DO Primary Care Provider DOMINGA MATHIS Referring Unavailable FEDERICO ROBINS Primary Care Unavailable DOMINGA MATHIS Referring Unavailable FEDERICO ROBINS Primary Care Unavailable Federico Robins MD Primary Care Provider KVNG HANNON Attending Unavailable MARYANN CHAVEZ H Attending Unavailable MAGUI GARCIA Admitting Unavailable MAGUI GARCIA Attending Unavailable FEDERICO ROBINS Primary Care Unavailable MAGUI GARCIA Referring Unavailable FEDERICO ROBINS Primary Care Unavailable Federico Robins DO Primary Care Provider Allergies Allergy ClassificationReported Allergen(s)Allergy TypeDate of OnsetReaction(s) Facility (2 sources)patient allergy list reviewed by nurse or physiciaPropensity to adverse [id number]:[place] Other Medications Current Medications MedicationDrug Class(es)DatesSig (Normalized)Sig (Original)acetaminophen 325 mg / oxyCODONE hydrochloride 5 mg oral tablet (2 sources)Opioid AgonistStart: 12-22-2023 End: 98-25-4523lrpSZOBWL-acetaminophen (PERCOCET) 5-325 MG per tablet Indications: Post-op pain Take 1 tablet by mouth every 6 hours as needed for Pain for up to 5 days. Intended supply: 5 days. Take lowest dose possible to manage pain Max Daily Amount: 4 tablets 20 tablet 12/22/2023 12/27/2023 Active [id number] 200 actuat albuterol 0.09 mg/actuat metered dose inhaler (10 sources)beta2-Adrenergic AgonistStart: 55-07-6571ihhq 2 puff(s) by inhalation four times daily as neededAlbuterol Sulfate HFA 108 (90 Base) MCG/ACT 2 puffs Inhalation qid prn July, ActiveStart: 96-12-9115zmvu 2 puff(s) by inhalation four times daily as neededAlbuterol Sulfate HFA 108 (90 Base) MCG/ACT 2 puffs Inhalation qid prn July, Activeascorbic acid 1000 mg oral tablet (2 sources)Vitamin Ctake 0.5 tablet by mouth once dailyAscorbic Acid (VITAMIN C) 1000 MG tablet Take 0.5 tablets by mouth daily Activeaspirin 81 mg delayed release oral tablet (2 sources)Platelet Aggregation Inhibitor, Nonsteroidal Anti-inflammatory Drug take 1 tablet by mouth once dailyaspirin 81 MG EC tablet Take 1 tablet by mouth daily ActiveCalcium (2 sources)Phosphate Binder, Calciumtake 1 tablet by mouth once dailyCalcium 200 MG TABS Take 1 tablet by mouth daily 600 mg daily Activecalcium chloride 0.0014 meq/ml / potassium chloride 0.004 meq/ml / sodium chloride 0.103 meq/ml / sodium lactate 0.028 meq/ml injectable solution (1 source)Start: 54-10-5245OoqstCOKsim, at 125 mL/hr, CONTINUOUS, Starting on Wed12/22/23 at 0900, Pre-op (day of surgery)cephalexin 500 mg oral capsule (3 sources)Cephalosporin AntibacterialStart: 91-80-5889skyn 1 capsule by mouth four times dailycephALEXin (KEFLEX) 500 MG capsule Indications: Hematoma Take 1 capsule by mouth 4 times daily 40 capsule 12/29/2023 ActiveStart: 12-22-2023 End: 37-75-9068jgzuYLSMze (KEFLEX) 500 MG capsule Take 1 capsule by mouth 2 times daily for 7 days Please take FIVE days of antibiotic if discharged home WITHOUT merino catheter. Please take SEVEN days of antibioticif discharged home WITH merino catheter. 14 capsule 12/22/2023 12/29/2023 Activecholecalciferol 0.125 mg oral tablet (2 sources)Vitamin Dtake 1 tablet by mouth once dailyvitamin D3 (CHOLECALCIFEROL) 125 MCG (5000 UT) TABS tablet Take 1 tablet by mouth daily ActiveclonazePAM 0.5 mg oral tablet (7 sources)BenzodiazepineclonazePAM (KlonoPIN) 0.5 MG tablet 1 (one) time each day at the same time. ActiveclonazePAM (KLONOPIN) 0.5 MG tablet every 24 hours. ActivediazePAM 5 mg oral tablet (14 sources)BenzodiazepineStart: 05-11-0792vqjp 1 tablet by mouth at bedtime diazePAM 5 mg TAKE 1 TABLET BY MOUTH AT BEDTIME Sep, Active1 ml diphenhydrAMINE hydrochloride 50 mg/ml cartridge (1 source)Histamine-1 Receptor AntagonistStart: 12-22-2023 End: 60-33-428643.5 mg, IntraVENous, ONCE PRN, 1 dose, Starting on Wed12/22/23 at 1314, Until Xi 12/23/23 at 1314, Itching, PACU onlydocusate sodium 50 mg / sennosides, [facility] 8.6 mg oral tablet (3 sources)Start: 12-22-2023 End: 91-23-5486wozz 2 tablets by mouth at bedtimesennosides-docusate sodium (SENOKOT-S) 8.6-50 MG tablet Take 2 tablets by mouth at bedtime 60 tablet 1 12/22/2023 Activeetodolac 500 mg oral tablet (6 sources)Nonsteroidal Anti-inflammatory DrugStart: 33-02-2594oxmw 1 tablet by mouth twice daily at mealtimeEtodolac 500 MG 1 tablet with food Orally Twice a day w/ food for 15 days Sep, Activefluticasone propionate 0.05 mg/actuat metered dose nasal spray (10 sources)CorticosteroidStart: 61-14-7579apjx 2 spray(s) nasal route once dailyFluticasone Propionate 50 MCG/ACT 2 sprays Nasally Once a day for 14 day(s) July, Activeibuprofen 400 mg oral tablet (3 sources)Nonsteroidal Anti-inflammatory DrugStart: 12-22-2023 End: 94-57-6656omis 1 tablet by mouth three times daily as needed for pain ibuprofen (IBU) 400 MG tablet Take 1 tablet by mouth 3 times daily as needed for Pain 30 tablet 1 12/22/2023 Activelabetalol (NORMODYNE;TRANDATE) injection 10 mg (1 source)Start: 69-27-7637ztcaqocus (NORMODYNE;TRANDATE) injection 10 mg Lactobacillus acidophilus (2 sources)take 1 tablet by mouth three times daily at mealtimeLactobacillus (PROBIOTIC ACIDOPHILUS PO) Take 1 tablet by mouth 3 times daily (with meals) Activelevothyroxine sodium 0.05 mg oral tablet (12 sources)l-ThyroxineStart: 66-13-4271rlvo 1 tablet by mouth in the morning levothyroxine (Synthroid, Levoxyl) 50 MCG tablet Indications: Hypothyroidism, unspecified (CMS/HCC)TAKE 1 TABLET BY MOUTH IN THE MORNING ON AN EMPTY STOMACH 30 tablet 11 12/21/2022 Activetake 1 tablet by mouth once daily in the morning Levothyroxine Sodium 50 MCG 1 tablet in the morning on an empty stomach Orally Once a day Hlhgtx64 ml lidocaine hydrochloride 10 mg/ml injection (1 source)Antiarrhythmic, Amide Local AnestheticStart: 12-22-2023 End: 00-36-9979fiff 1 dose intravenously once daily1 mL, IntraDERmal, ONCE PRN, 1 dose, Starting on Wed12/22/23 at 0841, Until Xi 12/23/23 at 0841, IV start, Pre-op (day of surgery)Magnesium (2 sources)take 1 tablet by mouth once dailymagnesium (MAGNESIUM-OXIDE) 250 MG TABS tablet Take 1 tablet by mouth daily Active2 ml metoclopramide 5 mg/ml prefilled syringe (1 source)Dopamine-2 Receptor AntagonistStart: 12-22-2023 End: 22-99-572330 mg, IntraVENous, ONCE PRN, 1 dose, Starting on Wed12/22/23 at 1314, Until Xi 12/23/23 at 1314, Nausea, Secondary antiemetic therapy., PACU only2 ml midazolam 1 mg/ml injection (2 sources)BenzodiazepineStart: 12-22-2023 End: mg, IntraVENous, ONCE PRN, 1 dose, Starting on Wed12/22/23 at 1314, Until Xi 12/23/23 at 1314, Anxiety, PACU onlyMultiple Vitamins-Minerals (HAIR SKIN & NAILS PO) (2 sources)Multiple Vitamins-Minerals (HAIR SKIN & NAILS PO) Take by mouth Daily Activenaloxone 0.4 mg in 10 mL sodium chloride syringe (1 source)Start: 65-04-8392LawptYISxcj, PRN, Opioid Reversal, Starting on Wed12/22/23 at 1314, PRN if respiratory rate is lessthan 6/min and patient is difficult to arouse [...] as administered previously). Concentration 0.04 mg/mL, PACU onlyondansetron 4 mg oral tablet (3 sources)Serotonin-3 Receptor AntagonistStart: 12-22-2023 End: 83-76-3430drcb 1 tablet by mouth every eight hours as needed for nausea ondansetron (ZOFRAN) 4 MG tablet Take 1 tablet by mouth every 8 hours as needed for Nausea or Vomiting 15 tablet 12/22/2023 12/27/2023 ActiveStart: 12-22-2023 End: mg, IntraVENous, ONCE PRN, 1 dose, Starting on Wed12/22/23 at 1314, Until Xi 12/23/23 at 1314, Nausea, Initial antiemetic therapy., PACU only oxyCODONE (1 source)Opioid AgonistStart: 12-22-2023 End: 80-21-3569adxDOSCRQ (ROXICODONE) immediate release tablet 5 mgrOPINIRole 1 mg oral tablet (20 sources)Nonergot Dopamine AgonistStart: 81-62-0655zXKXPCJojn (REQUIP) 1 MG tablet .COMPLEX 06/23/2022 ActiverOPINIRole HCl Not-TakingrOPINIRole HCl Active 72 hr scopolamine 0.0139 mg/hr transdermal system (1 source)AnticholinergicStart: patch, TransDERmal, Administer over 72 Hours, ONCE, On Wed12/22/23 at 0900, For 1 dose, delivers 1 mg over 3 days. Apply patch to hairless area behind the ear.5 ml sodium chloride 9 mg/ml injection (6 sources)Start: -40 mL, IntraVENous, EVERY 12 HOURS SCHEDULED (2 times per day), First dose on Wed12/22/23 at 2100, Until Discontinued, For Line Patency: Peripheral IV = 5 mL; Midline or Central Line = 10 mL/lumen.If following IV push medication, administer flush at same rate as the IV push. Flush volume is determined by type of infusion therapy being given. For non- viscous solutions use: Peripheral IV = 5 mL Midline or Central Line = 10 mL/lumen For viscous solutions (i.e. blood components, parenteral nutrition, contrast media, or after obtaining blood sample) use: Peripheral IV = 10 mL Midline or CentralLine = 20 mL/lumen, PACU onlyStart: 15-74-5399drtd 1 mL intravenously every hour as neededIntraVENous, at 100 mL/hr, PRN, If patient receiving piggyback infusions without ordered maintenance IV fluids or with frequent/long duration piggyback infusions, Starting on Wed12/22/23 at 1314, Administer at the same rate as the piggyback being infused., PACU onlyStart: 32-86-6538iivb 20 mL intravenously every hourIntraVENous, at 5-250 mL/hr, PRN, if patient receiving [...] less into rate field of order., Pre-op (dayof surgery)Start: -40 mL, IntraVENous, EVERY 12 HOURS SCHEDULED (2 times per day), First dose on Wed12/22/23 at 0900, Until Discontinued, For Line Patency: Peripheral IV = 5 mL; Midline or Central Line = 10 mL/lumen.If following IV push medication, administer flush at same rate as the IV push. Flush volume is determined by type of infusion therapy being given. For non-viscous solutions use: Peripheral IV = 5 mL Midline or Central Line = 10 mL/lumen For viscous solutions (i.e. blood components, parenteral nutrition, contrast media, or after obtaining blood sample) use: Peripheral IV = 10 mL Midline or CentralLine = 20 mL/lumen, Pre-op (day of surgery)Start: - 40 mL, IntraVENous, PRN, Starting on Wed12/22/23 at [...] For viscous solutions (i.e. blood components, parenteral nutrition,contrast media, or after obtaining blood sample) use: Peripheral IV = 10 mL Midline or Central Line= 20 mL/lumen, PACU onlytamsulosin hydrochloride 0.4 mg oral capsule (1 source)alpha-Adrenergic BlockerStart: 94-10-4493pkue 1 capsule by mouth once dailytamsulosin (FLOMAX) 0.4 MG capsule Take 1 capsule by mouth daily 7 capsule 5 12/22/2023 ActivetiZANidine 4 mg oral tablet (6 sources)Central alpha-2 Adrenergic AgonistStart: 15-12-2501jxJJTustfa HCl 4 MG 1/2 - 1 Orally Three times a day as needed for pain for 10 days Sep, Zodprz46 hr venlafaxine 150 mg extended release oral capsule (20 sources)Serotonin and Norepinephrine Reuptake InhibitorStart: 06-19-2023 venlafaxine (EFFEXOR XR) 150 MG extended release capsule Daily 06/19/2023 Active Start: 98-22-2541kjqn 1 capsule by mouth every twenty-four hoursVenlafaxine HCl ER 150 MG 1 capsule with food Orally Once a day Sep, Activetake 1 tablet by mouth in the morningvenlafaxine (Effexor) 75 MG tablet Take 75 mg by mouth in the morning. ActiveEffexor Not-TakingEffexor Activevitamin b12 0.1 mg oral tablet (2 sources)Vitamin H50jfiw 1 tablet by mouth once dailycyanocobalamin 100 MCG tablet Take 1 tablet by mouth daily Active Completed/Discontinued Medications MedicationDrug Class(es)DatesSig (Normalized)Sig (Original)estradiol 1 mg oral tablet (3 sources)EstrogenStart: 12-09-2022 End: 16-91-5511ertc 1 tablet by mouth in the morningestradiol (Estrace) 1 MG tablet Indications: Hormone replacement therapy Take 1 tablet (1 mg) by mouth in the morning. 90 tablet 3 12/09/2022 02/15/2024 Discontinued (Therapy completed)2 ml fentaNYL 0.05 mg/ml injection (1 source)Opioid AgonistStart: 12-22-2023 End: 30-15-3593nlkj 1 dose by mouth every pmas554 mcg, IntraVENous, ONCE, 1 dose, On Wed12/22/23 at 0930, If oral and IV narcotics ordered, use oral first and only use IV if oral is ineffective or cannot take oral. Do Not give oral and IV within1 hour of each other unless specifically ordered.gabapentin 300 mg oral capsule (1 source)Anti-epileptic AgentStart: 12-22-2023 End: 36-54-9137arjm 1 dose by mouth odcz654 mg, Oral, ONCE, 1 dose, [place] Wed12/22/23 [place] [address] ml HYDROmorphone hydrochloride 1 mg/ml cartridge (1 source)Opioid AgonistStart: .5 mg, IntraVENous, EVERY 5 MIN PRN, 4 doses, Starting on Wed12/22/23 at 1314, Until Discontinued,Pain Severe (7-10), Phase I - Initial therapy for severe pain., PACU onlyiopamidol (ISOVUE-370) 76 % injection 75 mL (1 source)Start: 12-29-2023 End: 71-67-2990fseu 1 dose intravenously once75 mL, IntraVENous, IMG ONCE PRN, 1 dose, Starting on Wed12/29/23 at 1530, Until Wed12/29/23 at 1537, Other1 ml morphine sulfate 2 mg/ml cartridge (1 source)Opioid AgonistStart: mg, IntraVENous, EVERY 5 MIN PRN, 4 doses, Starting on Wed12/22/23 at 1314, Until Discontinued, Pain Moderate (4-6), Phase I - Initial therapy for moderate pain., PACU onlyphenazopyridine hydrochloride 100 mg oral tablet (1 source)Start: 12-22-2023 End: 16-03-7876tbpe 1 dose by mouth once at zpmvzqaw819 mg, Oral, ONCE, 1 dose, On Wed12/22/23 at 0900, Take with food. May cause discoloration of urine. predniSONE 20 mg oral tablet (10 sources)Start: 44-31-8472mlmz 1 tablet by mouth every twelve hourspredniSONE 20 MG 1 tablet Orally bid for 5 day(s) July, Not-Taking{20 (nirmatrelvir 150 MG Oral Tablet) / 10 (ritonavir 100 MG Oral Tablet) } Pack [Paxlovid 5-Day] (9 sources)Start: 04-63-2594uojx 3 tablets by mouth every twelve hoursPaxlovid (300/100) 20 x 150 MG & 10 x 100MG 3 tablets Orally Twice a day for 5 day(s) May, Not-TakingStart: 43-14-3412iyww 3 tablets by mouth every twelve hours Paxlovid (300/100) 20 x 150 MG & 10 x 100MG 3 tablets Orally Twice a day for 5 day(s) May, Active Problems Active Problems Problem ClassificationProblemDateDocumented DateEpisodic/ChronicAnxiety disorders (8 sources)Generalized anxiety disorder; Translations: [Generalized anxiety disorder]ChronicConditions associated with dizziness or vertigo (2 sources)Benign paroxysmal positional vertigo; Translations: [Benign paroxysmal vertigo, left ear]EpisodicEsophageal disorders (10 sources)Eosinophilic esophagitis; Translations: [Eosinophilic esophagitis] ChronicEsophageal disorders (6 sources)Esophagitis; Translations: [Esophagitis]EpisodicEsophageal disorders (4 sources)Esophageal disorders; Translations: [Gastroesophageal reflux disease with esophagitis without hemorrhage]Immunizations and screening for infectious disease (2 sources)Vaccination given; Translations: [Encounter for immunization]Episodic Miscellaneous mental health disorders (6 sources)Primary insomnia; Translations: [Primary insomnia]ChronicMood disorders (18 sources)Recurrent major depressive episodes, mild ; Translations: [Major depressive disorder, recurrent, mild]ChronicNonmalignant breast conditions (4 sources)Fibrocystic disease of breast; Translations: [Diffuse cystic mastopathy of unspecified breast]Onset: 917363-76-2185JzzedumLfksg bone disease and musculoskeletal deformities (1 source)Other specified disorders of bone density and structure, right thigh EpisodicOther ear and sense organ disorders (12 sources)Sensorineural hearing loss, unilateral, right ear, with unrestricted hearing on the contralateral side; Translations: [Sensorineural hearing loss of right ear with normal hearing on left side (disorder)]Onset: 12-08-2022 95-83-6052SvvuidjUskyz ear and sense organ disorders (2 sources)Hearing loss; Translations: [Unspecified hearing loss, unspecified ear]ChronicOther ear and sense organ disorders (5 sources)Asymmetrical sensorineural hearing loss; Translations: [Sensorineural hearing loss, bilateral]Onset: 992211-95-0211JkficwhOxwqy ear and sense organ disorders (4 sources)Bilateral hearing loss; Translations: [Sensorineural hearing loss, unilateral, right ear, with restricted hearing on the contralateral side]Onset: 094725-32-6421PwxxsllKnrjo ear and sense organ disorders (6 sources)Tinnitus; Translations: [Tinnitus, right ear]EpisodicOther gastrointestinal disorders (2 sources)Chronic idiopathic constipation; Translations: [Chronic idiopathic constipation]Onset: 22-65-5221SgjnaolOujmm hereditary and degenerative nervous system conditions (8 sources)Restless legs; Translations: [Restless legs syndrome]ChronicOther injuries and conditions due to external causes (2 sources)History of fall; Translations: [History of falling]EpisodicOther injuries and conditions due to external causes (3 sources)Other injury of unspecified body region, initial encounter; Translations: [Other injury of unspecified body region, initial encounter]Onset: 44-58-6911EoaszrbkVette injuries and conditions due to external causes (1 source)Hematoma; Translations: [Other injury of unspecified body region, initial encounter]34-15-2459ZhvqbiegShhnb lower respiratory disease (6 sources)Nocturnal cough; Translations: [Nocturnal cough]EpisodicOther lower respiratory disease (2 sources)Cough; Translations: [Cough]EpisodicOther nervous system disorders (2 sources)Lesion of ulnar nerve; Translations: [Lesion of ulnar nerve]Onset: 09-64-6933KgnvikbOtuob nervous system disorders (1 source)Postoperative pain ; Translations: [Other acute postprocedural pain] 33-75-5690ThueihkgDlnaq nutritional; endocrine; and metabolic disorders (2 sources)Overweight; Translations: [Overweight]EpisodicOther upper respiratory infections (3 sources)Acute sinusitis, unspecified; Translations: [Acute maxillary sinusitis]Onset: 07-27-2021 Resolved: 86-78-9563ZkmqvkwrJhihycvw of female genital organs (15 sources)Cystocele; Translations: [Cystocele, unspecified]Onset: 12-08-2022 36-07-5506MjnerokXeboxxyc codes; unclassified (6 sources)Asymptomatic menopausal state; Translations: [Menopause]Episodic Residual codes; unclassified (2 sources)Postmenopausal state; Translations: [Asymptomatic menopausal state] EpisodicResidual codes; unclassified (2 sources)Other specified postprocedural states; Translations: [Other specified postprocedural states]Onset: 52-95-1982IgaxkmitOnklfeeuxwc; intervertebral disc disorders; other back problems (2 sources)Cervical spondylosis without myelopathy; Translations: [Spondylosis without myelopathy or radiculopathy, cervical region]Onset: 73-55-7520Csdmyel Thyroid disorders (20 sources)Thyroid nodule; Translations: [Nontoxic single thyroid nodule]Onset: 12-08-2020 Resolved: 76-51-3560ImyzhzoBxcjhingfhsb (1 source)Encounter for screening mammogram for malignant neoplasm of breast; Translations: [Encounter for screening mammogram for malignant neoplasm of breast]Onset: 43-45-6340Ojqpc infection (3 sources)COVID-19; Translations: [Disease caused by 2019-nCoV] Past or Other Problems Problem ClassificationProblemDateDocumented DateEpisodic/ChronicAbdominal pain (4 sources)Right upper quadrant pain; Translations: [Right upper quadrant pain] Onset: 22-80-3982SimhvqkbByhpvqtulfahno/social admission (2 sources)Stress; Translations: [Other psychological or physical stress, not elsewhere classified]Onset: 40-37-3188BsrfophqJcndvmh obstructive pulmonary disease and bronchiectasis (1 source)Bronchitis, not specified as acute or chronicOnset: 07-27-2021 Resolved: 27-94-1897PrxlgpzrDwvnokxj; including migraine (2 sources)Headache; Translations: [Headache]Onset: 15-60-4160Nlivadpc Lymphadenitis (2 sources)Lymphadenopathy; Translations: [Enlargement of lymph nodes]Onset: 41-76-7327JnhpbfikAwukvxp (2 sources)Tinea corporis; Translations: [Tinea corporis]Onset: 11-11-2012 EpisodicNausea and vomiting (2 sources)Nausea; Translations: [Nausea]Onset: 64-56-7395ArrriutnNirkrjrfocd chest pain (6 sources)Chest pain; Translations: [Other chest pain]Onset: 28-60-7128Pyqbgigd Other connective tissue disease (2 sources)Acquired trigger finger; Translations: [Trigger thumb, left thumb] Onset: 38-91-2990WwmwqcmaHazkt connective tissue disease (2 sources)Cramp in limb; Translations: [Cramp of limb]Onset: 59-43-5815Ltcpldht Other ear and sense organ disorders (5 sources)Tinnitus of left ear; Translations: [Tinnitus, left ear]Onset: 987485-33-5451NjeebewwMndwt gastrointestinal disorders (2 sources)Flatulence, eructation and gas pain; Translations: [Abdominal distension (gaseous)]Onset: 89-52-6057QiosuuduNszgr lower respiratory disease (2 sources)Dyspnea; Translations: [Dyspnea, unspecified]Onset: 10-01-2015 EpisodicOther nervous system disorders (2 sources)Paresthesia; Translations: [Paresthesia of skin]Onset: 05-14-2016 EpisodicOther nervous system disorders (1 source)Other acute postprocedural pain; Translations: [Other acute postprocedural pain]Onset: 29-69-3446JddcapyvBngme non-traumatic joint disorders (2 sources)Pain in wrist; Translations: [Pain in unspecified wrist]Onset: 80-61-6006OqzungglCzpld non-traumatic joint disorders (2 sources)Shoulder joint pain; Translations: [Pain in joint, shoulder region] Onset: 61-00-9715KxuiybrpLgbpp screening for suspected conditions (not mental disorders or infectious disease) (5 sources)Inconclusive mammography finding; Translations: [Inconclusive mammogram]Onset: 12-08-2022 Resolved: 492208-54-9439AjzqvobdQuoyx skin disorders (2 sources)Disorder of skin and/or subcutaneous tissue; Translations: [Disorder of the skin and subcutaneous tissue, unspecified]Onset: 79-44-3118Gpmckxmv Residual codes; unclassified (2 sources)Requires influenza virus vaccination; Translations: [Need for prophylactic vaccination and inoculation, Influenza]Onset: 64-90-1300Qkgcokyg Residual codes; unclassified (2 sources)C/O - a back symptom; Translations: [Other symptoms referable to back]Onset: 81-03-6769VejayezkJnmdnviupeg; intervertebral disc disorders; other back problems (4 sources)Neck pain; Translations: [Cervicalgia]Onset: 72-55-7988Snmtnsnb Unclassified (1 source)Acute bilateral low back pain without sciatica M54.50 Results Test NameValueInterpretationReference RangeFacilityUS Thyroid glandon 02-02-[address] [address] Ultrasound Report Signed Patient: ANNA JOLLEY MR#: [id number] : 1955 Acct:[id number] Age/Sex: 68 / F ADM Date: 01/31/24 Loc: US Attending Dr: Maryann Chavez M.D. Ordering Physician: Maryann Chavez M.D. Date of Service: 01/31/24 Procedure(s): US thyroid Accession Number(s): [id number] cc: Federico Robins D.O.; Maryann Chavez M.D. [facility] [place] [address] Patient Name: ANNA JOLLEY MRN: [facility]:[id number] date: 1955 Sex: F Assigned Patient Location: [place] Current Patient Location: Accession/Order Number: [id number] Exam Date: 01/31/2024 13:00 Report Date: 02/02/2024 04:09 At the request of: MARYANN CHAVEZ Procedure: US thyroid EXAMINATION: US thyroid HISTORY: Thyroid Nodule COMPARISON: Ultrasound thyroid 01/28/2023 FINDINGS: RIGHT LOBE: Enlarged, heterogeneous, hypervascular lobe. Incidental 5 mm colloid cyst. Lobe size: 6.2 x 2.7 x 2.0 cm LEFT LOBE: Enlarged, heterogeneous, and hypervascular lobe. Slight increase in size of a 10 x 7 x 6 mm TR 4 nodule within mid body. Lobe size: 5.7 x 2.6 x 1.9 cm ISTHMUS: Thickened and heterogeneous. Thickness: 13 mm US/US thyroid IMPRESSION: 1. Enlarged, hypervascular, markedly heterogeneous thyroid gland; nonspecific. 2. Slight increase in size of a now a 10 mm TR 4 nodule within the left lobe. Follow-up ultrasound evaluation in one year is recommended. TR4 (moderately suspicious): If > 1.0 cm, follow-up ultrasound in 1, 2, 3, and 5 years. If > 1.5 cm, fine needle aspiration (FNA). Electronically authenticated by: RANULFO GALICIA Date: 02/02/2024 04:09 Dictated By: Ranulfo Galicia M.D. Signed By: 02/02/24 0412 DD/ 0409 TD/TT: Coil Wrapper:JOSSELINHRadiology, Radiologist, - 02/02/2024 [place] [address] Ultrasound Report Signed Patient: ANNA JOLLEY MR#: [id number] : 1955 Acct:[id number] Age/Sex: 68 / F ADM Date: 01/31/24 Loc: US Attending Dr: Maryann Chavez M.D. Ordering Physician: Maryann Chavez M.D. Date of Service: 01/31/24 Procedure(s): US thyroid Accession Number(s): [id number] cc: Federico Robins D.O.; Maryann Chavez M.D. [place] [address] Patient Name: ANNA JOLLEY MRN: [id number] date: 1955 Sex: F Assigned Patient Location: US Current Patient Location: Accession/Order Number: [id number] Exam Date: 01/31/2024 13:00 Report Date: 02/02/2024 04:09 At the request of: MARYANN CHAVEZ Procedure: US thyroid EXAMINATION: US thyroid HISTORY: Thyroid Nodule COMPARISON: Ultrasound thyroid 01/28/2023 FINDINGS: RIGHT LOBE: Enlarged, heterogeneous, hypervascular lobe. Incidental 5 mm colloid cyst. Lobe size: 6.2 x 2.7 x 2.0 cm LEFT LOBE: Enlarged, heterogeneous, and hypervascular lobe. Slight increase in size of a 10 x 7 x 6 mm TR 4 nodule within mid body. Lobe size: 5.7 x 2.6 x 1.9 cm ISTHMUS: Thickened and heterogeneous. Thickness: 13 mm US/US thyroid IMPRESSION: 1. Enlarged, hypervascular, markedly heterogeneous thyroid gland; nonspecific. 2. Slight increase in size of a now a 10 mm TR 4 nodule within the left lobe. Follow-up ultrasound evaluation in one year is recommended. TR4 (moderately suspicious): If > 1.0 cm, follow-up ultrasound in 1, 2, 3, and 5 years. If > 1.5 cm, fine needle aspiration (FNA). Electronically authenticated by: RANULFO GALICIA Date: 02/02/2024 04:09 Dictated By: Ranulfo Galicia M.D. Signed By: 02/02/24 0412 DD/ 0409 TD/TT: Coil Wrapper: [facility] HealthcareRadiology Study observation (narrative)ORLANDO HealthcareUS Thyroid glandOrdered By: Radiologist Radiology on 80-34-7499HMBC [employer] Work Phone: bUN (Urea N)on 79-21-0946Perg nitrogen [Mass/Vol]18 mg/dLNormal-Guernsey Memorial HospitalComment on above:Performed By: #### BUN, CREG #### [facility] [address] [place] [address] Unloading Checker: Wilder Villa, MDCT PELVIS W CONTRASTon 52-39-1554SL PELVIS W CONTRASTEXAMINATION: CT OF THE PELVIS WITH CONTRAST 12/29/2023 [...] Signed by: Rahel Thompson MD 12/29/23 Final resultNormalMercy Charlotte [facility] Hospital Pelvis W contrast Carlos 83-16-3002Bcpm- moderate simple fluid in the pelvis. Subcutaneous inflammation and mild hematoma are compatible with postsurgical changes. PN RIS CONSOLIDATEDEXAMINATION: CT OF THE PELVIS WITH CONTRAST 12/29/2023 [...] visualized gastrointestinal tract. No acute osseous abnormality. [facility] Rahel Desouza MD - 12/29/2023 EXAMINATION: CT OF THE [...] mild hematoma are compatible with postsurgical changes. [facility] CenterRadiology Study observation (narrative)[facility] Pelvis W contrast IVOrdered By: Rahel [place] on 93-35-4842Fec [facility] Work Phone: Creatinine w/GFRon 86-30-4905Zszbbckijg [Mass/Vol]1.3 mg/dLHigh0.50-0.90MerNatchaug HospitalComment on above:Performed By: #### BUN, CREG #### [facility] [address] [place] [address] [place] [address] Unloading Checker: Wilder Villa MDGFR/1.73 sq M.predicted among non-blacks MDRD (S/P/Bld) [Vol rate/Area]44 mL/min/{1.73_m2}Low>60Mercy Norwalk HospitalComment on above:Result Comment: These results are not intended for [...] or following therapy that affects renal tubular secretion.Performed By: #### BUN, CREG #### [facility] [address] [place] [address] Unloading Checker: Wilder Villa MDHemoglobin and Hematocriton 55-61-3780Nbwpgtlaqz (Bld) [Volume fraction]40.0 %36 - 46 %Bon [facility] Ritt[facility] Medical CenterHemoglobin (Bld) [Mass/Vol]13.1 g/dL12.0 - 16.0 g/dLBon [facility]itt[facility] Medical CenterBon [facility]itt[facility] Medical CenterHgb/Hcton 59-17-9395Jhpzcnuucf (Bld) [Volume fraction]40.0 %Dvzxee75-64 [facility] Private HospitalComment on above:Performed By: #### HH #### [facility] [address] [place] [address] Unloading Checker: Luis Carlos Bright MDHemoglobin (Bld) [Mass/Vol]13.1 g/dLNormal 12.0-16.0Mercy Dameron HospitalComment on above:Performed By: #### HH #### [facility] [address] [place] [address] Unloading Checker: FAYE Isaac screening mammo BI w/CADon 03-39-5175UX screening mammo BI w/[facility] Main [address] [address] Mammography Report Signed Patient: Anna Jolley MR#: [id number] : 1955 Acct:[id number] Age/Sex: 67 / F ADM Date: 02/15/23 Loc: OR Room: Type: [facility] Attending Dr: Referral Self Copies to: Federico [...] unchanged. Benign-appearing calcifications redemonstrated on the left. Benign- appearing lymph nodes noted along the chest wall. [...] Yunior Yee M.D.02/16/2023 1:51 PM Dictation Location: [facility] Transcribed By: SUMIT 02/16/23 1351 Dictated By: Yunior Yee II, MD 02/16/23 1342 Signed By: 02/16/23 1351Mercy Memorial HospitalUS THYROIDon 67-85-0644FO THYROIDSTUDY: US THYROID, [id number] HISTORY: Non-toxic uninodular goiter TECHNIQUE: Multiple 2 [...] Electronically authenticated by: DIANDRA AVALOS Date: 2022-07-18 11:31NormalThCleveland Clinic Union Hospital AUTO DIFFon 81-54-7594UMEX #0.1 103/ulNormal0.0-0.1The [facility] Health CenterComment on above:Performed By: #### DATCBC #### [facility] [address] [place] [address] Dr. Rosie DodsonBasophils/100 WBC (Bld)0.7 %Normal0.2-2.0The [facility] Comment on above:Performed By: #### DATCBC #### [facility] [address] [address] [address] Rosie Hayden #0.5 103/ulNormal0.0-0.7The [facility] Health CenterComment on above: Performed By: #### DATCBC #### [facility] [address] [place] [address] Dr. Rosie Méndezosinophils/100 WBC (Bld)7.5 %Critically high0.9-7.0The [facility] CenterComment on above:Performed By: #### DATCBC #### [facility] [address] [place] [address] Dr. Rosie Méndezrythrocyte distribution width (RBC) [Ratio]12.4 %Bwrjsr17.0-15.0 The [facility] CenterComment on above:Performed By: #### DATCBC #### [facility] [address] [place] [address] Dr. Rosie DodsonHematocrit (Bld) [Volume fraction]44.4 %Vzzpli21.0-48.0The [facility] CenterComment on above:Performed By: #### DATCBC #### [facility] [address] [place] [address] Dr. Rosie DodsonHemoglobin (Bld) [Mass/Vol]14.4 g/vRRiqjly94.0-16.0The [facility] CenterComment on above:Performed By: #### DATCBC #### [facility] [address] [place] [address] Dr. Rosie King #0.01 10e3/ulNormal0.00-0.03The [facility] CenterComment on above:Performed By: #### DATCBC #### [facility] [address] [place] [address] Dr. Rosie King %0.1 %Normal0.0-0.5The [facility] CenterComment on above: Performed By: #### DATCBC #### [facility] [address] [place] [address] Dr. Rosie Corral #2.1 103/ulNormal1.2-3.8The [facility] CenterComment on above:Performed By: #### DATCBC #### [facility] [address] [place] [address] Dr. Rosie Famhocytes/100 WBC (Bld)29.4 %Phqrji94.5-60.0The [facility] CenterComment on above:Performed By: #### DATCBC #### [facility] [address] [place] [address] Dr. Rosie Veronica (RBC) [Entitic mass]29.0 rzSmatzo72.7-34.0The [facility] CenterComment on above:Performed By: #### DATCBC #### [facility] [address] [place] [address] Dr. Rosie Veronica (RBC) [Mass/Vol]32.4 g/nUWtqjpl13.9-35.2The [facility]od HospitalComment on above:Performed By: #### DATCBC #### [facility] [address] [place] [address] Dr. Rosie VeronicaV (RBC) [Entitic vol]89.5 oUMgnkqn67.0-99.0The [facility] County Hospitalment on above:Performed By: #### DATCBC #### [facility] [address] [place] [address] Dr. Rosie Patel #0.7 103/ulNormal0.3-0.8The [facility] CenterComment on above:Performed By: #### DATCBC #### [facility] [address] [place] [address] Dr. Rosie Lewocytes/100 WBC (Bld)9.8 %Normal1.7-12.0The [facility] Comment on above:Performed By: #### DATCBC #### [facility] [address] [place] [address] Dr. Rosie Sun #3.7 103/ulNormal1.4-6.5The [facility] CenterComment on above:Performed By: #### DATCBC #### [facility] [address] [place] [address] Dr. Rosie Greshamutrophils/100 WBC (Bld)52.5 %Poiacn71.0-75.0The [facility] CenterComment on above:Performed By: #### DATCBC #### [facility] [address] [place] [address] Dr. Rosie Ashleylet mean volume (Bld) [Entitic vol]9.6 fLNormal9.5-13.5The [facility] County Hospitalment on above:Performed By: #### DATCBC #### [facility] [address] [place] [address] Dr. Rosie DodsonPLT339 103/rhAvoibj086-230Kdg [facility] CenterComment on above: Performed By: #### DATCBC #### [facility] [address] [place] [address] Dr. Rosie DodsonRBC4.96 106/ulNormal4.20-5.40The [facility] CenterComment on above:Performed By: #### DATCBC #### [facility] [address] [place] [address] Dr. Rosie DodsonWBC7.1 103/ulNormal4.0-11.0The [facility] CenterComment on above: Performed By: #### DATCBC #### [facility] [address] [place] [address] Dr. Rosie Saravia - TSHon 85-19-0103SPP0.943 uIU/mLNormal0.358-3.740The [facility] CenterComment on above:Performed By: #### GLORIA DATBMP #### [facility] [address] [place] [address] Dr. Rosie Dobson Middletown HospitalComment on above: Result Comment: <0.34 UIU/ml HYPERTHYROID 0.34-5.60 UIU/ml EUTHYROID >5.60 UIU/ml HYPOTHYROIDPerformed By: #### GLORIA DATBMP #### [facility] [address] [place] [address] Dr. Rosie Saravia- BMP WITH LIPIDon 76-92-1276Jaemq gap [Moles/Vol]12.9 mmol/L NormalThe [facility] CenterComment on above:Performed By: #### ARLETHTSMiguel DATBMP #### [facility] [address] [place] [address] Dr. Rosie DodsonCalcium [Mass/Vol]9.2 mg/dLNormal8.5-10.1The [facility] Comment on above:Performed By: #### ARLETHTSMiguel DATBMP #### [facility] [address] [place] [address] Dr. Rosie DodsonChloride [Moles/Vol]102 mmol/GItaeaa16-864Rki [facility] Comment on above:Performed By: #### DATTSMiguel, DATBMP #### [facility] [address] [place] [address] Dr. Rosie DodsonCholesterol [Mass/Vol]228 mg/dLCritically high<=200The [facility] CenterComment on above:Performed By: #### DATTSMiguel, DATBMP #### [facility] [address] [address] [address] Rosie DodsonCholesterol in HDL [Mass/Vol]54 mg/hFQinkwe56-14Hst [facility] on above:Performed By: #### DATTSMiguel, DATBMP #### [facility] [address] [place] [address] Dr. Rosie DodsonCholesterol in LDL [Mass/Vol]151.0 mg/dLNormalThe [facility] CenterComment on above:Performed By: #### GLORIA DATBMP #### [facility] [address] [place] [address] Dr. Rosie DodsonCO2 [Moles/Vol]28.3 mmol/XQzzvtx97.0-32.0The [facility] Comment on above:Performed By: #### GLORIA DATBMP #### [facility] [address] [place] [address] Dr. Rosie DodsonCreatinine [Mass/Vol]0.92 mg/dLNormal0.55-1.02The [facility] CenterComment on above:Performed By: #### DATVINNY DATBMP #### [facility] [address] [place] [address] Dr. Rosie MéndezGFR-AF PALESTINIAN>60Normal>=60The [facility] CenterComtrinity health grand [facility] on above:Performed By: #### DATVINNY DATBMP #### [facility] [address] [place] [address] Dr. Rosie MéndezGFR-NON AF PALESTINIAN>60Normal>=60[facility] Doctors Hospitalment on above:Performed By: #### DATTSH, DATBMP #### [facility] [address] [place] [address] Dr. Rosie DodsonGlucose [Mass/Vol]100 mg/nUJbgyfr95-177Nmd [facility] Comment on above:Performed By: #### DATTSH, DATBMP #### [facility] [address] [address] [address] Rosie Pelayo NORMAL> or = 60 mg/dl - LOW CARDIOVASCULAR RISK <40 mg/dl - HIGH CARDIOVASCULAR RISKUniversity Hospitals Cleveland Medical CenterComment on above:Performed By: #### DATVINNY DATBMP #### [facility] [address] [address] [address] Rosie DodsonLDL CALC NORMALSEE BELOWNoWyandot Memorial HospitalComment on above:Result Comment: <100 mg/dl OPTIMAL 100 - 129 mg/dl NEAR OR ABOVE OPTIMAL 130 - 159 mg/dl BORDERLINE HIGH 160 - 189 mg/dl HIGH >190 mg/dl VERY HIGH Performed By: #### GLORIA DATBMP #### [facility] [address] [address] [address] Rosie DodsonPotassium [Moles/Vol]4.2 mmol/LNormal3.5-5.1The [facility] Comment on above:Performed By: #### GLORIA DATBMP #### [facility] [address] [place] [address] Dr. Rosie DodsonSodium [Moles/Vol]139 mmol/OQmters646-516Oak [facility] Comment on above:Performed By: #### GLORIA DATBMP #### [facility] [address] [place] [address] Dr. Rosie DodsonTriglyceride [Mass/Vol]115 mg/dLNormal<=150The [facility] Comment on above:Performed By: #### GLORIA DATBMP #### [facility] [address] [place] [address] Dr. Rosie DodsonUrea nitrogen [Mass/Vol]19.0 mg/dLCritically high7.0-18.0The [facility] CenterComment on above:Performed By: #### GLORIA DATBMP #### [facility] [address] [place] [address] Dr. Rosie Carranza nitrogen/Creatinine [Mass ratio]20.7 mg/mgNoWyandot Memorial HospitalComment on above:Performed By: #### GLORIA DATBMP #### [facility] [address] [place], [place] [address] Dr. Rosie DodsonVLDL CALC23.0 mg/dLUniversity Hospitals Cleveland Medical CenterComment on above: Performed By: #### TIARA CASTRO #### [facility] [address] [place], [place] [address] Dr. Rosie Meraz THYROIDon 83-15-7933BV THYROIDEXAM: US THYROID HISTORY: Non-toxic uninodular goiter . [...] Electronically authenticated by: KATIE GRAY Date: 2022-01-28 17:10[facility] Vital Signs Date TimeVital SignValuePerforming WsyekiwehIgmsjoxh98-33-1483 14:15-0500Body hfvhem642.6 cmMaryann Chavez MD Work Phone: NOMissouri [facility] Medical CenterUbbxummuib40-29-2450 14:15-0500Body mass index (BMI) [Ratio]26.63 kg/e7JwawmpMaryann Chavez MD Work Phone: [facility] HospitalNfembafnyc47-01-9243 14:15-0500Body ywviwb91.84 kgHibrenden Chavez MD Work Phone: [facility] HospitalTvkydfemki66-20-8885 14:15-0500Diastolic blood vmdzajtf24 mm[Hg]Maryann Chavez MD Work Phone: [facility] HospitalTgeyewjmlt28-20-2051 14:15-0500Systolic blood lgttozfz840 mm[Hg]Maryann Chavez MD Work Phone: [facility] HospitalWoxblwvtvp70-77-3067 14:05-0400Heart rate87 /min Magui aGrcia DO Work Phone: [facility] byUs10-09-2024 14:05-0400 Respiratory rate17 /minMagui Garcia DO Work Phone: [facility]10-09-2024 14:05-6021CaU1% (BldA) [Mass fraction]95 %Magui Garcia DO Work Phone: [facility]10-09-2024 14:00-0400Diastolic blood ynyypvqz57 mm[Hg]Magui Garcia DO Work Phone: [facility]10-09-2024 14:00-0400Systolic blood lawcbxng470 mm[Hg]Magui Garcia DO Work Phone: [facility]10-09-2024 11:47-0400Body .2 [degF]Magui Garcia DO Work Phone: [facility]10-09-2024 08:58-0400Body .7 cmAalisonramya Garcia DO Work Phone: [facility]10-09-2024 08:58-0400Body mass index (BMI) [Ratio]25.67 kg/q4FtyxsqMagui Garcia DO Work Phone: [facility]10-09-2024 08:58-0400Body lommrz46.57 kgAndramya Garcia DO Work Phone: [place] [address]-13-2023 11:15-0400Body .72 cmBenjamin Ball Other [employer] Other 07-13-2023 11:15-0400Body mass index (BMI) [Ratio] 25.31 kg/h6Xeompoif Ball Other [employer] Other 07-13-2023 11:15-0400Body auigcm96.52 kgBenjamin Ball Other [employer] Other 07-13-2023 11:15-0400Diastolic blood sxhqgsdu00 mm[Hg] Federico Ball Other [employer] Other 07-13-2023 11:15-0400Respiratory rate12 /minBenjamin Ball Other [employer] Other 07-13-2023 11:15-0400Systolic blood nibgghbb194 mm[Hg] Federico Ball Other [employer] Other 05-15-2022 12:40-0400Body djjauh827.72 cmPamelidris Patel Other [employer] Other 05-15-2022 12:40-0400Body mass index (BMI) [Ratio] 24.93 kg/y5Tiplhy Dymond Other [employer] Other 05-15-2022 12:40-0400Body dsahnhmjhqa32.4 [degF]Meron Patel Other [employer] Other 05-15-2022 12:40-0400Body vzravj03.39 kgMeron Patel Other Nort [employer] Other 05-15-2022 12:40-8975VpR6% (BldA) [Mass fraction]95 % Meron Patel Other Notd [employer] Other Encounters Encounter DateEncounter TypeCare ProviderFacilityStart: 02-28-2024 End: 20-06-7543Dlbwrpsqv encounterHibrenden Chavez MD Work Phone: [facility] NORWALKStart: 02-15-2024 End: 51-79-4096Hhbhfc outpatient visit 15 minutesMaryann Chavez MD Work Phone: n[facility] CI ENTComment on above:Thyroid nodule (CMS/HCC) (Primary Dx)Start: 02-15-2024 End: 56-32-6174ghdpxnscbzPWRRBP Miguel CHAVEZNot AvailableStart: 02-15-2024 End: 84-17-0745Vkuyon flowsheetMaryann Chavez MD Work Phone: [facility] CI ENTStart: 02-15-2024 End: 42-59-5271Cchiyi Filiberto Chavez MD Work Phone: [facility] CI ENTStart: 02-02-2024 End: 22-99-0066Gxrsyvflu Result EncounterMaryann Chavez MD Work Phone: noms External Department UnsolicitedStart: 02-02-2024 End: 67-02-0603Aejhzxgla Result EncounterHibrenden Chavez MD Work Phone: noms External Department UnsolicitedStart: 12-29-2023 End: 31-85-9251cemrjsviorCIQJYK [facility] HospitalStart: 12-29-2023 End: 12-54-1583Imzzvtexnt hospital visit by physicianUnity [facility] Cat Scan RoomMercy Health Cullowhee CT ScanComment on above:HematomaStart: 12-22-2023 End: 60-68-0406gnltpxglwtKOJJGD J CROAKMerSaddleback Memorial Medical Centertart: 12-22-2023 End: 78-87-2888Mgawglztsu hospital visit by physicianMagui Garcia DO Work Phone: mhKettering Health ORComment on above:Post-op pain (Primary Dx)Start: 12-06-2023 End: 37-53-5156lqjbzaggyiZWZEAI J CROAKMercy ValleyCare Medical Centertart: 10-20-2023 End: 89-85-6461cdvqckmpuqHVJYNJO MCGILLNot AvailableStart: 09-01-2023 End: 15-41-3062pdpakucfpaYWXOTQB A MCGILLNot AvailableStart: 02-15-2023 End: 68-15-7292oejcialdlsWmwwbqsd BallFacility:[facility] Start: 02-15-2023 End: 12-69-7544ktlyqlmhwmOS Federico Rboins Work Phone: [facility] Work Phone: Start: 02-15-2023 End: 76-71-9565Ssgwylp encounter procedureDO Federico Robins Work Phone: [facility] Work Phone: Start: 02-11-2023 End: 10-58-0005jjalaqcjezRcpaixnc Ball Other [facility] [employer] Other Start: 40-41-8792Wbunkrhni encounterBenjamin BallFPG [facility] Medical ClinicStart: 02-10-2023 End: 22-24-7971ytktsdfpaiGqzxrhcx Ball Other [facility] [employer] Other Start: 29-11-0159Dvmjuszas encounterBenjamin BallFPG [facility] Medical ClinicStart: 12-21-2022 End: 08-88-7491ozuzqcivbkAhvqpyaq Ball Other [employer] Other Start: 06-92-6539Tzcvbslct encounterBenjamin BallFPG [facility] Medical ClinicStart: 10-12-2022 End: 92-15-2756kufzzqztcpIjemjtpa Ball Other [facility] [employer] Other Start: 90-17-5379Ifdrwhhmo encounterBenjamin BallFPG [facility] ClinicStart: 09-28-2022 End: 57-41-5085uajackxcmgXfjbkwnh Ball Other [facility] [employer] Other Start: 17-66-0047Vahxwgcwg encounterBenjamin BallFPG [facility] ClinicStart: 09-24-2022 End: 75-88-2364afxipaimxbIpuxgijg Ball Other [facility] [employer] Other Start: 60-98-3490Amlndh outpatient visit 15 minutes Federico BallFPG [facility] Medical ClinicStart: 09-23-2022 End: 60-71-4744xxyzmtjdpqWexxpete Ball Other [facility] [employer] Other Start: 41-55-0871Vfzqsifdt encounterBenjamin BallFPG [facility] ClinicStart: 07-18-2022 End: 81-58-8281hqvahbjjcpXlykqf Amanda Other [facility] [employer] Other Start: 09-05-0991Vatmxsicu encounterPamela DymondFPG [facility] ClinicStart: 07-17-2022 End: 15-14-3172zffuowlgroACLFYZ TIMMISFacility:Z3Vhpvu: 05-20-2022(FPG VCS) [facility] ScheduledBenjamin BallFPG [facility] Medical ClinicStart: 05-20-2022 End: 91-56-0581piabtyztjzXshhyjly Ball Other nort [employer] Other Start: 02-13-2022 End: 72-85-9568rpfchiwmijVE NONE LISTED REQUESTFacility:Z9Ubzaf: 51-52-7043Ighud health examinationBethang Robins Other noStreamweaver [employer] Other Start: 01-28-2022 End: 81-11-1912qjmqyvxbwmDL FEDERICO ROBINSFacility:Z4Yhccj: 01-20-2022 End: 76-02-0233sqalaenvfjOT Federico Robins Work Phone: [facility] Work Phone: Start: 01-20-2022 End: 69-09-1312Scylgdj encounter procedureDO Federico Robins Work Phone: [facility] Start: 07-27-2021 End: 97-28-1954nzyarhacteMlxqly Dymond Other [facility] [employer] Other Start: 70-85-0695Duseqn outpatient new 20 minutes Meron PatelFPG [facility] Mohan Procedures DateProcedureProcedure DetailPerforming ClinicianStart: 62-94-2511Md soft tissue head & neck real time imge Oumar Chavez MD Work Phone: Start: 83-66-9798Hg pelvis w/contrast materialTracey Hallie BENEFITS TECHNICIAN - RECONCILIATION MACHINE OPERATOR Work Phone: Start: 12-22-2023H/O: surgeryS/P robotic sacrocolpopexy with restorelle mesh, cystoscopy, lynx sling 12/22/23Andramya Garcia DO Work Phone: Start: 57-65-1249Lrqah count Harry Martinez MD Work Phone: Start: 05-95-0744Aqknogrpb mammography of bilateral breastsDO Federico Robins Work Phone: Start: 99-60-9300Yfhbzdile for malignant neoplasm of colonFederico Robins Other Start: 55-84-6131Exaeoof examination of patient Federico Robins Other Depression screeningFederico Robins Other Screening for malignant neoplasm of breastFederico Robins Other Plan of Treatment DateCare ActivityDetailAuthorStart: 83-88-3947MMoB/Tdap/Td vaccine (5 - Tdap) DTaP/Tdap/Td vaccine (5 - Tdap)Bon [facility] CenterStart: 00-45-6986RHN test (Diabetes, CKD 3-4, OR last GFR 15-59)GFR test (Diabetes, CKD 3-4, OR last GFR 15-59)Bon [facility] CenterStart: 02-15-2024 End: 51-67-2835Temhrmp encounter akdoinjii41/03/2024 2:20 PM EST Office Visit [facility] [address] [address] Maryann Chavez MD [address] [place] [address] [address] ArrivedNOMS CI ENTComment on above:ArrivedStart: 01-28-2024 End: 74-70-3862Nmzcqwv encounter pqpaxewhl67/15/2024 10:45 AM EST Office Visit [facility] [address] [facility] [address] [place] [address] Magui Garcia, [address] [place], [place] [address] 6 WK PO [facility] Urogynecology and Pelvic RehabilitationComment on above:6 WK POStart: 01-04-2024 End: 68-99-1144Kfmroid encounter bhvowyzxh12/22/2024 2:00 PM EDT Office Visit [facility] [address] [place] [address] Kim Perea, PT [address] [place] [address] [facility] Urogynecology and Pelvic RehabilitationStart: 12-29-2023 End: 26-34-8175Ambaywv encounter peyinmcqq17/16/2024 9:15 AM EDT Office Visit [facility] [address] [place] [address] Dominga Mathis, BENEFITS TECHNICIAN - RECONCILIATION MACHINE OPERATOR [address] [facility] [address] [place] [address] 1 WK [facility] Urogynecology and Pelvic RehabilitationComment on above:1 WK POStart: 12-22-2023 End: 43-79-3033Zbyjihcospj colpopexy suspension vaginal apexSACRAL COLPOPEXY ROBOTIC Cystocele with rectocele Vaginal vault prolapse Urinary frequency 12/22/2023 9:52 AM [facility]: 66-87-9188Rglspq Wellness Visit (Medicare)Annual Wellness Visit (Medicare)[facility]: 86-95-0767ZPZUW-19 Vaccine ( season)COVID-19 Vaccine ( season)[facility]: 74-39-4836Tpbnbosfm vaccination Flu vaccine (#1)[facility] CenterStart: 43-05-5405UF Breast - bilateral ScreeningMercy Health Allen Hospitaltart: 64-70-3096Lsuboiumb mammography of bilateral breastsMM screening mammo BI w/[facility] Start: 68-13-1239Gpcohioac for malignant neoplasm of breastBreast cancer screen [facility]art: 03-31-7844Cnrducwwkvt Syncytial Virus (RSV) or age 60 yrs+ (1 - 1-dose 60+ series)Respiratory Syncytial Virus (RSV) or age 60 yrs+ (1 - 1-dose 60+ series)[facility] HealthVirallyNorwalk [facility] Hospital: 46-96-9130Alpqilves for osteoporosisDEXA (modify frequency per FRAX score)[facility]: 72-01-9058Yzvikauh vaccine (1 of 2)Shingles vaccine (1 of 2)[facility] FarmaciaClubNor[facility]: 10-70-8298Ebfwboqrh for malignant neoplasm of colonCar[facility]: 56-37-6702Fodbp panelLipidsCarilion New [facility]: 86-49-2372Batujael screenDiabetes [facility] CampusH[facility]: 98-93-0651Mkzgcoklb C screeningHepatitis C [facility] CampusH[facility]: 16-06-1224Ikvigoxaxi ScreenDepression [facility] [employer] End: 18-76-2204YAOJNKSL PACU OXYGEN THERAPY PROTOCOLInitiate PACU Oxygen Therapy Protocol Respiratory Care Routine Continuous until discontinued starting 12/22/2023 [email or web address] Phone: comment on above:Continuous until discontinued starting 12/22/2023Oxygen therapy [Minimum Data Set]Initiate Oxygen Therapy Protocol Respiratory Care Routine As Needed until discontinued starting [email or web address] Phone: Comment on above:As Needed until discontinued starting 12/22/2023 End: 05-44-3898Rjuuhfhtd, urine POCTPregnancy, urine POCT Point of Care Testing Routine One Time for 1 Occurrences starting 12/22/2023 until 12/22/2023 byUsComment on above:One Time for 1 Occurrences starting 12/22/2023 until 12/22/2023 Immunizations Immunization DateImmunizationNotesCare OtlmrkjdBvahooxv83-96-8397yasivlvgt, high dose seasonal, preservative-freeBrysonnheath Robins Other [place] [employer] Other 004188-36-9490gfngksxxy virus vaccine, split virus (incl. purified surface antigen)Federico Robins Other [facility] Other [id number], Seasonal, Quadrivalent, AdjuvantedHibrenden Chavez MD Work Phone: [facility] HospitalEfysvlecxx56-28-2045Cmohatd 20Bethang Robins Other [facility] [employer] Master Other [id number], injectable, quadrivalent, preservative freeMaryann Chavez MD Work Phone: [facility] HospitalTqdqddcycc40-00-4024szjiuoemo, seasonal, injectableMaryann Chavez MD Work Phone: [facility] HospitalWkfxxckdxd89-76-6932hibghoe and diphtheria toxoids, adsorbed, preservative free, for adult use (5 Lf of tetanus toxoid and 2 Lf of diphtheria toxoid)Federico Robins Other [place] [employer] Other [id number], seasonal, injectable, preservative freeMaryann Chavez MD Work Phone: [facility] HospitalJhcwyjqeyg94-22-3943vffvirk and diphtheria toxoids, adsorbed, preservative free, for adult use (5 Lf of tetanus toxoid and 2 Lf of diphtheria toxoid)Federico Robins Other [place] [employer] Other [id number], seasonal, injectableMaryann Chavez MD Work Phone: no[facility] CenterJnqwlvjwcl54-91-3596gjfsjkv and diphtheria toxoids, adsorbed, preservative free, for adult use (5 Lf of tetanus toxoid and 2 Lf of diphtheria toxoid)Federico Robins Other [employer] Other [id number], tetanus toxoids and acellular pertussis vaccine, unspecified formulationFederico Robins Other [employer] Other [id number] mammfroos-P1Z9-19, preservative-free, injectableHilary Steven MAR Work Phone: NO[facility] Healthcarepneumococcal Conjugate, unspecified formulation; Translations: [Need for prophylactic vaccination against Streptococcus pneumoniae (pneumococcus)]Federico Robins Other [employer] Other Payers DatePayer CategoryPayerPolicy ID2024Medicare [id number] 2024 Medicare (Managed Care)[employer] Member Subscriber Plan / Payer (Effective 2023-Present) Name: Anna Jolley Relation to Subscriber: Self Name: Anna Jolley Payer ID: Not on file Group ID: [id number] Type: Not on file Address: [facility] [id number] [place] [id number] [id number] [id number] 1960Medicare [id number] 2..840.9.889465.85779907-42-7270Rwtq-lhs09315701647-18-8393Gnebhul [id number] ..840.9.76501[id number] 2.840.1.532532.3.57[id number] 2.0.1.305880.3.57[id number] 2..1.457828.3.57[id number] 2.0.1.072633.3.579.2.26302-15-0679Jxlmpuc0824411 2..1.730888.3.579.2.897572-73-4623Ruixihk1850299 2..1.448193.3.57[id number] 2..1.990406.3.579.[id number] 2..1.419042.3.579.[id number] 2..1.854357.3.57[id number] BC/BS [id number]vmsqg Just For Ar COMPA [id number] [id number] n140c029-sluy-5369-mpbg-[id number] 2..1.944190.3.579.2.593 [id number] 2..1.424316.3.579.2.531 Social History DateTypeDetailFacilityStart: 12-06-2023 End: 64-84-4271Wlo Assigned At [facility] HospitalTrustpilot [facility] HospitalStart: 54-22-1749Jev Assigned At [facility] Hospitaltart: 12-08-2022 End: 86-24-3520Lwutnky smoking status NHISNever smoked tobaccoLifepoint HealthTrustpilot [facility] [employer] Work Phone: Start: 12-08-2022 End: 26-37-1769Dwpwxva use and exposureSmokeless tobacco non-userLifepoint HealthStereobot [facility] CenterStart: 12-22-2023 End: 74-72-7103Cdqrahucr beverage intakeCurrent drinker of alcohol (finding)[facility] HealthStereobot [facility] CenterStart: 12-06-2023 End: 31-83-2407Bvxfyrg of Social functionLifepoint HealthVirallyPioneer Community Hospital of PatrickStart: 39-78-3752Viecxqnu abuseDeniesLifepoint HealthTrustpilot [facility] HospitalStart: 55-81-4162Ioehyjd Commentrarely-once a mos.[facility] UGE [facility] CenterStart: 59-65-6233Swkjiq identityIdentifies as female gender (finding)[facility] HealthStereobot [facility] CenterStart: 26-57-5687Dnodsks CommentVery rarely I may have1 beerLifepoint HealthZawatt Start: 02-10-2023 End: 70-38-6080Beahfbuxc beverage intakeEx-drinker (finding)[facility] HealthcareHow often to you have a drink containing alcohol?Monthly or lessNOMS HealthcareHow many standard drinks containing alcohol do you have on a typical day?1 or 2NOMS HealthcareHow often do you have 6 or more drinks on 1 occasion?NeverNOMS HealthcareStart: 55-51-3873Vzxfdib CommentSocial not very oftenNOMS Healthcare Medical Equipment Procedure CodeEquipment CodeEquipment Original TextEquipment IdentifierDatesMesh Signing Teacher [id number] Polypr Unidir Y Cntour For Transabdominal - [id number] Start: 30-58-2633Qdeeb Urological Mid-Urethral Suprapubic 2 Del Lynx Ultra - [id number] FDAStart: 12-22-2023 Clinical Notes 07-27-2021 to 02-28-2024 Note Date & YrffVgosVxlnhqva84-64-1594 Telephone encounter Note* Telephone Encounter - Maryann Chavez MD - 02/28/2024 12:07 PM EST PT needs a TSH before I cn refill synthroid [facility] Tukbaybpox57-02-1159 Miscellaneous Notes* Telephone Encounter - Maryann Chavez MD - 02/28/2024 12:07 PM EST PT needs a TSH before I cn refill synthroid documented in this encounterCenterPointe HospitalYzxqesxijv80-18-8063 History of Present illness Narrative* Maryann Chavez MD - 02/15/2024 2:20 PM EST Subjective Patient ID: Anna Jolley is a 68 y.o. female who presents for Thyroid Nodule (1 year check with ultrasound [facility] 02/02/24) US shows a 29x2z9jn left TR4 nodule compared to 3m0e7hc one year ago Family History Problem Relation Name Age of Onset Cancer Mother Ruthanna Multiple myeloma Mother Ruthanna Heart failure Father Louie Heart attack Father Louie Hypertension Father Louie Heart disease Father Louie Other (pulmonary hypertension) Sister Breast cancer Maternal Grandmother Heart disease Maternal Grandfather Heart disease Paternal Grandmother Heart disease Paternal Grandfather Breast cancer Mother's Sister Linda x2 aunts Ovarian cancer Father's Sister Hypertension Sister Diane Poole Active Ambulatory Problems Diagnosis Date Noted Asymmetrical sensorineural hearing loss 12/08/2022 Female cystocele 12/08/2022 Fibrocystic breast changes 12/08/2022 Incomplete uterovaginal prolapse 12/08/2022 Inconclusive mammogram 12/08/2022 Rectocele 12/08/2022 Sensorineural hearing loss (SNHL) of right ear with restricted hearing of left ear 12/08/2022 Sensorineural hearing loss (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 12/08/2022 Acquired hypothyroidism ([facility]/HCC) 12/08/2022 Enlarged thyroid ([facility]) 12/08/2020 Other specified hypothyroidism ([facility]/HCC) 12/08/2022 Thyroid nodule ([facility]/HCC) 12/08/2022 Thyroiditis ([facility]) 12/08/2022 Thyromegaly ([facility]) 12/08/2022 Tinnitus of left ear 12/08/2022 Resolved Ambulatory Problems Diagnosis Date Noted No Resolved Ambulatory Problems Past Medical History: Diagnosis Date Abnormal mammogram Asymmetric sensorineural deafness Breast lump Cervical intraepithelial neoplasia grade 1 Chronic recurrent major depressive disorder (HCC) ([facility]) COVID-19 05/2022 Disease of thyroid gland ([facility]) 2020 Family history of cancer GERD (gastroesophageal reflux disease) History of vaginal infection Hypothyroidism ([facility]) Insomnia Measles Menopause ovarian failure 2006 Menorrhagia Pelvic prolapse Recurrent major depression in partial remission (HCC) ([facility]) Restless leg SNHL (sensorineural hearing loss) Stress incontinence Tinnitus Vaginal infection Past Surgical History: Procedure Laterality Date APPENDECTOMY 1974 BI US GUIDED BREAST LOCALIZATION AND BIOPSY LEFT Left 03/18/2017 BI US GUIDED BREAST LOCALIZATION AND BIOPSY LEFT [facility] BLEPHAROPTOSIS REPAIR Bilateral lift BREAST BIOPSY 2018 COLONOSCOPY 2006 HYSTERECTOMY 2008 LAV BSO, TVT-O TRIGGER FINGER RELEASE Left thumb - [place] WRIST SURGERY fused No Known Allergies Current Outpatient Medications on File Prior to Visit Medication Sig Dispense Refill clonazePAM (KlonoPIN) 0.5 MG tablet 1 (one) time each day at the same time. diazePAM (Valium) 5 MG tablet Take 5 mg by mouth at bedtime. levothyroxine (Synthroid, Levoxyl) 50 MCG tablet TAKE 1 TABLET BY MOUTH IN THE MORNING ON AN EMPTY STOMACH 30 tablet 11 rOPINIRole (Requip) 1 MG tablet Take 1 mg by mouth at bedtime. venlafaxine (Effexor) 75 MG tablet Take 75 mg by mouth in the morning. [DISCONTINUED] estradiol (Estrace) 1 MG tablet Take 1 tablet (1 mg) by mouth in the morning. 90 tablet 3 No current facility-administered medications on file prior to visit. Objective Last Recorded Vitals Vitals: 02/15/24 1415 BP: 122/79 ENT Physical Exam Constitutional Appearance: patient appears well-developed, well-nourished and well-groomed, Communication/Voice: communication appropriate for developmental age; vocal quality normal; Assessment/Plan Diagnoses and all orders for this visit: Thyroid nodule (CMS/HCC) Minimal change in size. Continue annual US documented in this encounterCenterPointe HospitalUtcgwgnmfb74-34-3465 Evaluation note* Diagnosis S/P robotic sacrocolpopexy with restorelle mesh, cystoscopy, lynx sling 12/22/23- Primary Post-op pain Other acute postoperative pain documented [facility] encounter [facility] Hospital Discharge instructions* Discharge Instructions* Susan Jordan RN - 12/20/2023 9:28 AM EDT Images from the original note were not included. [facility] POSTOPERATIVE PATIENT INSTRUCTIONS [...] (*See Special Considerations) -Short local travel (restaurant, scientologist) - Long distance travel > 1.5 hours [...] the office with any questions or concerns. [phone]. If during office hours, your issue may require an appointment. If after hours, the answering service will connect you with the physician [facility]. If you are concerned that your issue may be emergent, PLEASE CALL FIRST. Many issues may be resolved over the phone and avoid an unnecessary and expensive ER visit. If you truly have an emergency related to the surgery and call first: *You will be directed to the hospital ER in which you had your surgery. [facility] primarily or [facility] rarely. [facility] & [facility] patients may be asked to report to [facility] if Dr. Garcia's on-call partner is assuming responsibility. ER visits are ALWAYS covered by insurance (i.e. [facility] can go to a [facility] ER.) Calling 1st expedites your care & avoids an unnecessary and costly ambulance transfer to the Hospital. Dial 911 or go to your closest ER if your emergency is related to a potential heart attack or stroke. 3 DISCHARGE MEDICINES Buda 325/5mg tablets or alternative narcotic. Take 1-2 tablets by mouth every 4-6 hours as needed for pain. Per [facility] Board of Pharmacy laws, only 1 week of narcotics may be prescribed at a time. Do not take extra Tylenol (Acetaminophen) orally as Buda already contains the medicine. May take 500mg orally every 4-6 hours if off of Buda. * Ibuprofen 400-800mg is safe to take. [...] in order to heal successfully in the care home. Once you have fully recovered, you may focus on enjoying your life. Keep in mind, you will continue to heal for 6-12 months after surgery, so use common sense to protect your surgery (avoid repetitive heavy lifting, constipation, chronic pelvic strain.) In particular, if you had a hysterectomy, you may have both physical and emotional effects that maybe brief or eyeglass frames inspector. After hysterectomy, periods will stop, and a [...] of those with UTI's, 16-26% with urinary incontinence or voiding dysfunction, and 40% with defecatory [...] blood clots in the legs or lungs, [place], or stroke. Elderly patients over the age [...] sent through Care Everywhere. * scopolamine transdermal (Icelandic) documented in this encounterBon [facility] Evaluation note* Encounter Date Diagnosis Assessment Notes Treatment Notes Treatment Clinical Notes Jan, Osteopenia of right hip (ICD-10 - M85.851) [facility] Other 07-31-2023 Evaluation note* Encounter Date Diagnosis Assessment Notes Treatment Notes Treatment Clinical Notes Sep, Mild episode of recu rrent major depressive disorder (ICD-10 - F33.0) [facility] Other 07-13-2023 Evaluation note* Encounter Date Diagnosis Assessment Notes Treatment Notes Treatment Clinical Notes Sep, Acute bilateral low back pain wi thout sciatica (ICD-10 - M54.50) ROM exercises: handout given to patient Heat/ice and Tylenol. Initiate Zanaflex and Lodine. No XR necessary at this time PT? Sep,Mild episode of recurrent major depressive disorder (ICD-10 - F33.0) Disabled results in depressed mood. Recommend seeing counselor and Psych if no improvement. Continue SSRI and consider augmentation w/ Wellbutrin [facility] Other 05-06-2023 Evaluation note* Encounter Date Diagnosis Assessment Notes Treatment Notes Treatment Clinical Notes July, Thyroid nodule (ICD-10 - E04.1) Thyroid US: 07/2022 - Stable thyromegaly. - Single TI-RADS 4 nodule in the left thyroid measuring up to 7 mm - no further scans recommended [facility] Other 03-08-2023 Evaluation note* Encounter Date Diagnosis [...] Always wear a mask in public places. [facility] Other 05-15-2022 Evaluation note* Encounter Date Diagnosis [...] no improvement in 2 to 3 days. July,2Acute sinusitis, recurrence not specified, unspecified location (ICD-10 - J01.90) [facility] Other Evaluation noteNo assessment information available [facility] Work Phone: Evaluation noteNo InformationNort LBE Security Master Other Evaluation note* Diagnosis Hematoma Contusion of unspecified site [facility] encounter [facility]* Diagnosis Thyroid nodule (CMS/HCC)- Primary Nontoxic uninodular goiter documented in this encounter [facility] HealthcareHistory general Narrative - Reported* Type Description Date Surgical History appendectomy Surgical Historyright wrist fusedSurgical Historyhysterectomy [facility] Other Hismyfv general Narrative - Reported* Type Description Date Medical History JOAQUIM (generalized anxiety disorde r) Medical HistoryEosinophilic esophagitisMedical HistoryAcquired autoimmune hypothyroidismMedical HistoryNocturnal coughMedical HistoryMajor depression Medical HistoryPrimary insomniaMedical HistorySensorineural hearing loss (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Medical HistoryTinnitus, right earMedical HistoryMenopauseMedical HistoryEsophagitisMedical History Gastroesophageal reflux disease with esophagitis without hemorrhageMedical HistoryRestless leg syndromeSurgical HistoryappendectomySurgical Historyright wrist fusedSurgical HistoryhysterectomyHospitalization Historysee surgical history [facility] Other Hiswblm general Narrative - Reported* Type Description Date Medical History JOAQUIM (generalized anxiety disorde r) Medical HistoryEosinophilic esophagitisMedical HistoryAcquired autoimmune hypothyroidismMedical HistoryNocturnal coughMedical HistoryMajor depression Medical HistoryPrimary insomniaMedical HistorySensorineural hearing loss (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Medical HistoryTinnitus, right earMedical HistoryMenopauseMedical HistoryEsophagitisMedical History Gastroesophageal reflux disease with esophagitis without hemorrhageMedical HistoryRestless leg syndromeSurgical HistoryappendectomySurgical Historyright wrist fusedSurgical HistoryhysterectomySurgical HistoryColonoscopy w/ mywzispnxhb12/2023Hospitalization Historysee surgical history [facility] Other History general Narrative - Reported* Type Description Date Medical History JOAQUIM (generalized anxiety disorde r) Medical HistoryEosinophilic esophagitisMedical HistoryAcquired autoimmune hypothyroidismMedical HistoryNocturnal coughMedical HistoryMajor depression Medical HistoryPrimary insomniaMedical HistorySensorineural hearing loss (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Medical HistoryTinnitus, right earMedical HistoryMenopauseMedical HistoryEsophagitisMedical History Gastroesophageal reflux disease with esophagitis without hemorrhageMedical HistoryRestless leg syndromeMedical HistoryOsteopeniaSurgical History appendectomySurgical Historyright wrist fusedSurgical Historyhysterectomy Surgical HistoryColonoscopy w/ hpedqvdcaae24/2023Hospitalization Historysee surgical history [facility] Other Chief Complaint and Reason for Visit Chief Complaint Z12.31 Advance Directives Advance Directive Response Recorded Date/ Time Advance Directives No January 5:12pm Summary Purpose Family History No Family History Records FoundNo Family History Records FoundNo Family History Records FoundNo Family History Records FoundNo Family History Records Found Reason for Referral SpecialtyDiagnoses / ProceduresReferred By ContactReferred To ContactRadiology Diagnoses Hematoma Procedures CT PELVIS W CONTRAST Dominga Mathis, BENEFITS TECHNICIAN - RECONCILIATION MACHINE OPERATOR [address] [place] [address] Referral IDStatusReasonStart DateExpiration DateVisits RequestedVisits [id number]/16/202410/16/202511 Additional Source Comments REASON FOR VISIT (unrecogniz ed section and content) SpecialtyDiagnoses / ProceduresReferred By ContactReferred To Contact Diagnoses Cystocele with rectocele Vaginal vault prolapse Urinary frequency Cystocele with rectocele [N81.10, N81.6] Vaginal vault prolapse [N81.9] Urinary frequency [R35.0] Procedures WA LAPAROSCOPY COLPOPEXY SUSPENSION VAGINAL APEX ROBOTIC SACRAL COLPOPEXY WITH RESTORELLE MESH; CYSTOSCOPY LYNX SLING; possible ANTERIOR AND POSTERIOR REPAIRS Magui Garcia DO [address] [place] [address] [facility] [address] [place] [address] Referral IDStatusReasonStart DateExpiration DateVisits RequestedVisits [id number] / ProceduresReferred By ContactReferred To ContactRadiology Diagnoses Hematoma Procedures CT PELVIS W CONTRAST Dominga Mathis, NEHA - RECONCILIATION MACHINE OPERATOR [address] [facility] [address] [place] [address] Referral IDStatusReasonStart DateExpiration DateVisits RequestedVisits [id number] Nodule1 year check with ultrasound [facility] 02/02/24 Care Teams (unrecognized sec tion and content) Team Status: Inactive Member Role Status Dates Federico Robins DO Primary Care Provider, Attending Pr ovider Active Team Status: Active Member Role Status Dates Federico Robins DO Primary Care Provider Active Team Status: Inactive Member Role Status Dates Referral Self Attending Provider Active Yasmeen Palomino Care ProviderActiveTeam MemberRelationshipSpecialty Start DateEnd Date Federico Robins DO [address] [place] [id number] PCP - GeneralInternal Medicine09/08/23Team MemberRelationshipSpecialtyStart Date End Date Federico Robins DO [address] [place] [address] PCP - GeneralInternal Medicine09/08/23Team MemberRelationshipSpecialtyStart Date End Date Federico Robins MD [address] [place] [address] PCP - General12/08/22Team MemberRelationshipSpecialtyStart DateEnd Date Federico Robins MD [address] [place] [phone] PCP - General12/08/22Team MemberRelationshipSpecialtyStart DateEnd Date Federico Robins MD [address] [place] [address] PCP - General12/08/22Te MemberRelationshipSpecialtyStart DateEnd Date Federico Robins DO PCP - General12/08/22 Goals (unrecognized section and content) Goals may be documented in a n alternate section INFORMATION SOURCE (unrecogn ized section and content) DATE CREATED AUTHOR 07/24/2022 [facility] DATE CREATED AUTHOR AUTHOR'S ORGANIZ ATION 02/21/2023 [facility] DATE CREATED AUTHOR AUTHOR'S ORGANIZ ATION 01/01/2024 [facility] DATE CREATED AUTHOR AUTHOR'S ORGANIZ ATION 02/17/2024 [facility] DATE CREATED AUTHOR AUTHOR'S ORGANIZ ATION 08/03/2024 [facility] Ordered Prescriptions (unrec ognized section and content) PrescriptionSigDispensedRefillsStart DateEnd Date tamsulosin (FLOMAX) 0.4 MG capsule Take 1 capsule by mouth daily 7 capsule ondansetron (ZOFRAN) 4 MG tablet Take 1 tablet by mouth every 8 hours as needed for Nausea or Vomiting 15 tablet sennosides-docusate sodium (SENOKOT-S) 8.6-50 MG tablet Take 2 tablets by mouth at bedtime 60 tablet cephALEXin (KEFLEX) 500 MG capsule Take 1 capsule by mouth 2 times daily for 7 days Please take FIVE days of antibiotic if discharged home WITHOUT merino catheter. Please take SEVEN days of antibiotic if discharged home WITH merino catheter. 14 capsule / ibuprofen (IBU) 400 MG tablet Take 1 tablet by mouth 3 times daily as needed for Pain 30 tablet oxyCODONE-acetaminophen (PERCOCET) 5-325 MG per tablet Indications:Post-op painTake 1 tablet by mouth every 6 hours as needed for Pain for up to 5 days. Intended supply: 5 days. Take lowest dose possible to manage pain Max Daily Amount: 4 tablets 20 tablet / sennosides-docusate sodium (SENOKOT-S) 8.6-50 MG tablet Take 2 tablets by mouth at bedtime 60 tablet cephALEXin (KEFLEX) 500 MG capsule Take 1 capsule by mouth 2 times daily for 7 days Please take FIVE days of antibiotic if discharged home WITHOUT merino catheter. Please take SEVEN days of antibiotic if discharged home WITH merino catheter. 14 capsule ondansetron (ZOFRAN) 4 MG tablet Take 1 tablet by mouth every 8 hours as needed for Nausea or Vomiting 15 tablet /11/2023 oxyCODONE-acetaminophen (PERCOCET) 5-325 MG per tablet Indications:Post-op painTake 1 tablet by mouth every 6 hours as needed for Pain for up to 5 days. Intended supply: 5 days. Take lowest dose possible to manage pain Max Daily Amount: 4 tablets 20 tablet ibuprofen (IBU) 400 MG tablet Take 1 tablet by mouth 3 times daily as needed for Pain 30 tablet Scheduled Active and Recently Administ ered Medications (unrecognized section and content) Medication Order/ ceFAZolin (ANCEF) 2,000 mg in sodium chloride 0.9 % 50 mL IVPB (mini-bag) 2,000 mg, IntraVENous, GRAIN UNLOADER TO O.R., 1 dose, On Wed12/22/23 at 0900, Antimicrobial Indications: Surgical Prophylaxis, Pre-op (day of surgery) * 0900 (Due) fentaNYL (SUBLIMAZE) injection 100 mcg (COMPLETED) 100 mcg, IntraVENous, ONCE, 1 dose, On Wed12/22/23 at 0930, If oral and IV narcotics ordered, use oral first and only use IV if oral is ineffective or cannot take oral. Do Not give oral and IV within1 hour of each other unless specifically ordered. * 0940 (Given - Provider: Chika Mak RN - Comment: block) gabapentin (NEURONTIN) capsule 300 mg (COMPLETED) 300 mg, Oral, ONCE, 1 dose, On Wed12/22/23 at 0900 * 0908 (Given - Provider: Chika Mak RN) meperidine (DEMEROL) injection 12.5 mg 12.5 mg, IntraVENous, ONCE, 1 dose, On Wed12/22/23 at 1330, May give every 5 minutes to max of 50mg., PACU only * 1330 (Due) midazolam PF (VERSED) injection 2 mg (COMPLETED) 2 mg, IntraVENous, ONCE, 1 dose, On Wed12/22/23 at 0930 * 0940 (Given - Provider: Chika Mak RN - Comment: block) phenazopyridine (PYRIDIUM) tablet 100 mg (COMPLETED) 100 mg, Oral, ONCE, 1 dose, On Wed12/22/23 at 0900, Take with food. May cause discoloration of urine. * 0908 (Given - Provider: Chika Mak RN) scopolamine (TRANSDERM-SCOP) transdermal patch 1 patch 1 patch, TransDERmal, Administer over 72 Hours, ONCE, On Wed12/22/23 at 0900, For 1 dose, delivers 1 mg over 3 days. Apply patch to hairless area behind the ear. * 0909 (Patch Applied - Provider: Chika Mak RN - Comment: behind right ear) sodium chloride flush 0.9 % injection 5-40 mL 5-40 mL, IntraVENous, EVERY 12 HOURS SCHEDULED (2 times per day), First dose on Wed12/22/23 at 0900, Until Discontinued, For Line Patency: Peripheral IV = 5 mL; Midline or Central Line = 10 mL/lumen.If following IV push medication, administer flush at same rate as the IV push. Flush volume is determined by type of infusion therapy being given. For non-viscous solutions use: Peripheral IV = 5 mL Midline or Central Line = 10 mL/lumen For viscous solutions (i.e. blood components, parenteral nutrition, contrast media, or after obtaining blood sample) use: Peripheral IV = 10 mL Midline or CentralLine = 20 mL/lumen, Pre-op (day of surgery) * 0900 (Due) * 2099 (Due) sodium chloride flush 0.9 % injection 5-40 mL 5-40 mL, IntraVENous, EVERY 12 HOURS SCHEDULED (2 times per day), First dose on Wed12/22/23 at 2100, Until Discontinued, For Line Patency: Peripheral IV = 5 mL; Midline or Central Line = 10 mL/lumen.If following IV push medication, administer flush at same rate as the IV push. Flush volume is determined by type of infusion therapy being given. For non-viscous solutions use: Peripheral IV = 5 mL Midline or Central Line = 10 mL/lumen For viscous solutions (i.e. blood components, parenteral nutrition, contrast media, or after obtaining blood sample) use: Peripheral IV = 10 mL Midline or CentralLine = 20 mL/lumen, PACU only * 2100 (Due) Medication Order/11/2023 lactated ringers IV soln infusion IntraVENous, at 125 mL/hr, CONTINUOUS, Starting on Wed12/22/23 at 0900, Pre-op (day of surgery) * 0908 (New Bag - Provider: Chika Mak RN) * 0952 (NoRateChange - Provider: NEHA Denson CRNA) * 0952 (Paused - Provider: NEHA Denson CRNA - Comment: Switch to gravity) * 0953 (Restarted - Provider: NEHA Denson CRNA - Comment: 250ml gone upon arrival to or) * 1013 (New Bag - Provider: NEHA Denson CRNA) * 1144 (Anesthesia Volume Adjustment - Provider: NEHA Denson CRNA) Medication Order10/07//11/2023 0.9 % sodium chloride infusion IntraVENous, at [...] less into rate field of order., Pre-op (dayof surgery) 0.9 % sodium chloride infusion IntraVENous, [...] doses, Starting on Wed12/22/23 at 1314, Until Discontinued,High Blood Pressure, for SBP greater than 180 [...] doses, Starting on Wed12/22/23 at 1314, Until Discontinued,Pain Severe (7-10), Phase I - Initial therapy for severe pain., PACU only labetalol (NORMODYNE;TRANDATE) injection 10 mg(Linked Group 1) 10 mg, IntraVENous, EVERY 15 MIN PRN, 2 doses, Starting on Wed12/22/23 at 1314, Until Discontinued,High Blood Pressure, for SBP greater than 180 mmHg for 2 consecutive measurements taken from different sites., If heart rate is 60 bpm or less hold labetalol and use hydralazine if ordered, otherwisecontact provider. Inform provider if SBP is still [...] at 1122, Until Wed12/22/23 at 1146, Intra-op * 1122 (Given - Provider: Magui Garcia DO - Comment: suprapublic) lidocaine-EPINEPHrine 1 %-1:334200 injection (CANCELED) PRN, Starting on Wed12/22/23 at 1125, Until Wed12/22/23 at 1146, Intra-op * 1125 (Given - Provider: Magui Garcia DO) metoclopramide (REGLAN) injection 10 [...] at 1314, PRN if respiratory rate is lessthan 6/min and patient is difficult to arouse [...] For viscous solutions (i.e. blood components, parenteral nutrition,contrast media, or after obtaining blood sample) use: Peripheral IV = 10 mL Midline or Central Line= 20 mL/lumen, Pre-op (day of surgery) sodium [...] For viscous solutions (i.e. blood components, parenteral nutrition,contrast media, or after obtaining blood sample) use: Peripheral IV = 10 mL Midline or Central Line= 20 mL/lumen, PACU only Medication Order/11/2023 lidocaine 1 % injection 1 dose, Starting on Wed12/22/23 at 1008, Until Wed12/22/23 at 2214, Chica Yates: Trudy westfall Katherine: cabinet override * 1015 (Due) lidocaine-EPINEPHrine 1 %-1:[id number] injection 1 dose, Starting on Wed12/22/23 at 1008, Until Wed12/22/23 at 2214, Chica Yates: franciinetoTrudy moore Katherine: cabinet override * 1015 (Due) Order Group 1: labetalol (NORMODYNE;TRANDATE) injection 10 mgJump to med 10 mg, IntraVENous, EVERY 15 MIN PRN, 2 doses, Starting on Wed12/22/23 at 1314, Until Discontinued,High Blood Pressure, for SBP greater than 180 mmHg for 2 consecutive measurements taken from different sites., If heart rate is 60 bpm or less hold labetalol and use hydralazine if ordered, otherwisecontact provider. Inform provider if SBP is still greater than 180 mmHg, 10 minutes after second antihypertensive dose is administered., PACU only Or hydrALAZINE (APRESOLINE) injection 10 mgJump to med 10 mg, IntraVENous, EVERY 15 MIN PRN, 2 doses, Starting on Wed12/22/23 at 1314, Until Discontinued,High Blood Pressure, for SBP greater than 180 [...] BE BASED ON THE PRIMARY CLINICAL RECORDS. [facility]. provides no warranty or guarantee of the accuracy or completeness of information in this document.
== END 2025-02-21 12:53 | disposition home or self-care (01) ==
LOC: US 12:52
PROVIDERS: PCP Internal Medicine; Visit Provider Otolaryngology
DX: E04.1 Nontoxic single thyroid nodule (principal); R68.89 Other general symptoms and signs
CPT/HCPCS: 76536